=== PATIENT | male | born 1950 | race Caucasian/White ===

== ENCOUNTER 2016-03-23 20:45 | Emergency (ER) | payer MEDICARE, BC ==
--- NOTE | 2016-03-23 21:17 | ER Document Report ---
ED Foreign Body - General Mode of Arrival: Medic Information source: Patient, Relative - Spouse TRAVEL OUTSIDE OF THE [place] IN LAST 30 DAYS: No - HPI Patient complains to provider of: esophagus obstruction Location of foreign body: Throat Onset: Just prior to arrival Onset/Duration: Sudden Associated symptoms: None Similar symptoms previously: Yes - multiple incidents - General Chief Complaint: Swallowed Foreign Body Stated Complaint: POSSIBLE FOREIGN OBJECT IN THROAT Notes: Patient is a 65-year-old male presenting to the emergency department via EMS after choking on report. Patient states that it is still stuck in his throat, and he is unable to swallow his own secretions. Patient immediately regurgitated water when he attempted to swallow. Patient states that he has attempted to make himself vomit, but has not worked. Patient's states that he chokes quite often on meet. Patient states he has had one scope 10-12 years ago where they told him he had a hiatal hernia. Patient has a history of COPD, NH, arthritis, and his primary care physician is Dr. Crum. (JOSELO MCKINLEY) - Related Data Allergies/Adverse Reactions: No Known Allergies Allergy (Unverified 10/11/14 10:41) Past Medical History - General Information source: Patient - Social History Smoking Status: Former Smoker Cigarette use (# per day): No Drug Abuse: None Lives with: Spouse/Significant other Family History: Reviewed & Not Pertinent, Arthritis, DM, Other - Past Medical History Cardiac Medical History: Reports: Hx Congestive Heart Failure - Diastolic, Hx DVT, Hx Hypertension, Hx Pulmonary Embolism Pulmonary Medical History: Reports: Hx COPD, Hx Pneumonia, Hx Sleep Apnea Musculoskeltal Medical History: Reports Hx Arthritis Psychiatric Medical History: Denies: Hx Depression Past Surgical History: Reports: Hx Cholecystectomy, Hx Orthopedic Surgery - carpel tunnel,neck - Immunizations Immunizations up to date: Yes Hx Diphtheria, Pertussis, Tetanus Vaccination: Yes Hx Pneumococcal Vaccination: 02/05/11 Review of Systems - Review of Systems Constitutional: No symptoms reported EENT: See HPI, Other - Food obstructing esophagus. Cardiovascular: No symptoms reported Respiratory: No symptoms reported Gastrointestinal: No symptoms reported Genitourinary: No symptoms reported Male Genitourinary: No symptoms reported Musculoskeletal: No symptoms reported Skin: No symptoms reported Hematologic/Lymphatic: No symptoms reported Neurological/Psychological: No symptoms reported Physical Exam - Vital signs Vitals: Temp Pulse Resp BP Pulse Ox 97.5 F 68 20 121/71 92 03/23/16 21:23 03/23/16 21:23 03/23/16 21:23 03/23/16 21:23 03/23/16 21:23 (COSMO POLK) - Notes Notes: GENERAL: Alert, interacts well. HEAD: Normocephalic, atraumatic. EYES: Pupils equal, round, and reactive to light. Extraocular movements intact. ENT: Food obstruction to esophagus. Patient unable to swallow water- immediately regurgitates. Drooling. NECK: Full range of motion. LUNGS: No respiratory distress. No wheezes rales or rhonchi. HEART: Regular rate and rhythm. No murmurs, gallops, or rubs. ABDOMEN: Soft, non-tender. Non-distended. Bowel sounds present in all 4 quadrants. EXTREMITIES: Moves all 4 extremities spontaneously. NEUROLOGICAL: Alert and oriented x3. Normal speech. PSYCH: Normal affect, normal mood. SKIN: Warm, dry, normal turgor. No rashes or lesions noted. (JOSELO MCKINLEY) Course - Consults [facility] Transfer Line Time consulted: 21:10 - Called transfer line to consult GI specialist. Dr. Ge Time consulted: 21:48 - Re-evaluation Re-evalutation: 03/23/16 23:11 I personally performed the services described in the documentation, reviewed and edited the documentation which was dictated to my scribe in my presence, and it accurately records my words and actions. presents emergency Department chief complaint of pork stuck in his throat. Patient is a 65-year-old male patient who slaughtered a PEG earlier was eating pork. He said at least 20-30 times he's had meat get stuck in his airway but easily is been able to dislodge it at home with various different techniques 90 was unsuccessful at that family members report doing the Heimlich maneuver twice. On ED arrival patient is drooling slightly no acute respiratory distress gave him something to drink it came right back up. I spoke with we do not have GI or ENT here spoke with Dr. Ge [facility] he recommended trying glucagon awaiting a half hour no response with glucagon called him back on he's been accepted [facility] for a scope tonight. Concerns with a history of recurrent obstruction and no scope that there could be a stricture or tumor in the ear. He says he hasn't been scoped in over 10 years. Patient is well- appearing nontoxic no respiratory distress and Teleform is been fine and he is pending transfer [facility] via [facility]. (COSMO POLK) - Vital Signs Vital signs: Temp Pulse Resp BP Pulse Ox 97.5 F 68 20 121/71 92 03/23/16 21:23 03/23/16 21:23 03/23/16 21:23 03/23/16 21:23 03/23/16 21:23 (COSMO POLK) - Consults [facility] Reason for consultation: 03/23/16 21:20 ENT specialist returned call instead of GI. Called The transfer line again to request GI specialist. (JOSELO MCKINLEY) Dr. Ge Reason for consultation: 03/23/16 22:09 patient's case was discussed with Dr. Ge, who agrees to accept patient ED to ED to do scope. (JOSELO MCKINLEY) Discharge - Discharge Clinical Impression: acute esophageal food obstruction Condition: Stable Disposition: [facility] Scribe Documentation - Scribe Written by Scribe:: Joselo Mckinley [id number] acting as scribe for :: Jose
[2016-03-23 21:36] VITALS: BP 121/71
[2016-03-23] MEDS ORDERED: GLUCAGON,HUMAN RECOMB 1 MG INJ SUBCUT ONE (21:48)
== END 2016-03-23 23:52 | disposition short-term general hospital (02) ==
LOC: ER 20:45
DX: K22.2 Esophageal obstruction (principal); J44.9 Chronic obstructive pulmonary disease, unspecified; I25.2 Old myocardial infarction; I10 Essential (primary) hypertension; Z86.711 Personal history of pulmonary embolism; Z86.718 Personal history of other venous thrombosis and embolism; Z87.891 Personal history of nicotine dependence
CPT/HCPCS: 99284; 96372; J1610

== ENCOUNTER 2016-06-23 22:03 | Emergency (ER) | payer MEDICARE, BC ==
[2016-06-23] MEDS ORDERED: ACETAMINOPHEN 325 MG TABLET PO ONE (22:44)
[2016-06-24] MEDS ORDERED: IPRATROPIUM/ALBUTEROL 0.5-2.5 MG/3 ML AMPUL NEB ONE (00:05)
[2016-06-24 00:46] LABS: HEMATOCRIT 25.6 % (37.9-51.0); HGB HCT DIFFERENCE -1.9; MEAN CORPUSCULAR HEMOGLOBIN 22.3 pg (27.0-33.4); MEAN CORPUSCULAR VOLUME 72 fl (80-97); RED BLOOD COUNT 3.55 10^6/uL (4.35-5.55); RED CELL DISTRIBUTION WIDTH 20.2 % (11.5-14.0); WHITE BLOOD COUNT 15.5 10^3/uL (4.0-10.5)
[2016-06-24 00:53] LABS: HEMOGLOBIN 7.9 g/dL (13.5-17.0)
[2016-06-24 01:01] LABS: ANION GAP 14 (5-19); BLOOD UREA NITROGEN 12 mg/dL (7-20); CALCIUM 7.9 mg/dL (8.4-10.2); CARBON DIOXIDE 24 mmol/L (22-30); CHLORIDE 97 mmol/L (98-107); CREATININE RESULT 0.76 mg/dL (0.52-1.25); GLUCOSE 111 mg/dL (75-110); POTASSIUM 3.6 mmol/L (3.6-5.0); SODIUM 135.1 mmol/L (137-145)
[2016-06-24 01:04] LABS: BASOPHILS % (MANUAL) 0 % (0-2); EOSINOPHILS % (MANUAL) 0 % (0-6); LYMPHOCYTES % (MANUAL) 2 % (13-45); TOTAL CELLS COUNTED 100
[2016-06-24 01:09] LABS: ANISOCYTOSIS 2+; HYPOCHROMASIA 2+; MICROCYTOSIS 1+; OVALOCYTES 1+; POIKILOCYTOSIS 1+; POLYCHROMASIA SLIGHT; TARGET CELLS SLIGHT; TEAR DROP CELLS SLIGHT; TOXIC GRANULATION SLIGHT
[2016-06-24] MEDS ORDERED: LEVOFLOXACIN 750 MG TABLET PO ONE (01:48)
[2016-06-24] MEDS ORDERED: GABAPENTIN 300 MG CAPSULE PO ONE (01:54)
--- NOTE | 2016-06-24 02:00 | ER Document Report ---
ED General - General Chief Complaint: Fever Stated Complaint: WEAKNESS Time Seen by Provider: 06/23/16 23:53 Notes: Patient is 65-year-old male who presents with complaint of cough, congestion, sore throat for several days. He developed fever today. He is on methotrexate he takes to the severe arthritis. He says arthritis is also been worsening. He says he especially has pain in his feet which are very sensitive and hurts to walk. He does not have a history of diabetes. Had no abdominal pain. No vomiting. No diarrhea. No other complaints this time. TRAVEL OUTSIDE OF THE [place] IN LAST 30 DAYS: No - Related Data Allergies/Adverse Reactions: No Known Allergies Allergy (Unverified 10/11/14 10:41) Past Medical History - Social History Smoking Status: Former Smoker Chew tobacco use (# tins/day): No Frequency of alcohol use: None Drug Abuse: None Family History: Reviewed & Not Pertinent, Arthritis, DM, Other Patient has suicidal ideation: No Patient has homicidal ideation: No - Past Medical History Cardiac Medical History: Reports: Hx Congestive Heart Failure - Diastolic, Hx DVT, Hx Heart Attack, Hx Hypertension, Hx Pulmonary Embolism Pulmonary Medical History: Reports: Hx COPD, Hx Pneumonia, Hx Sleep Apnea Renal/ Medical History: Denies: Hx Peritoneal Dialysis Musculoskeltal Medical History: Reports Hx Arthritis Psychiatric Medical History: Denies: Hx Depression Past Surgical History: Reports: Hx Cholecystectomy, Hx Orthopedic Surgery - carpel tunnel,neck - Immunizations Immunizations up to date: Yes Hx Diphtheria, Pertussis, Tetanus Vaccination: Yes Hx Pneumococcal Vaccination: 02/05/11 Review of Systems - Review of Systems Notes: My Normal Review Basic REVIEW OF SYSTEMS: CONSTITUTIONAL : Denies fever, chills, or sweats. Denies recent illness. EENT: Nasal congestion and sore throat. RESPIRATORY: Recurrent cough GASTROINTESTINAL: Denies abdominal pain. Denies nausea, vomiting, or diarrhea. Denies constipation. GENITOURINARY: Denies difficulty urinating, painful urination, burning, frequency, or blood in urine. MUSCULOSKELETAL: Joint pain, bilateral foot pain SKIN: Denies rash or skin lesions. NEUROLOGICAL: Denies altered mental status or loss of consciousness. Denies headache. Denies weakness or paralysis or loss of use of either side. Denies problems with gait or speech. Denies sensory or motor loss. ALL OTHER SYSTEMS REVIEWED AND NEGATIVE. Physical Exam - Vital signs Vitals: Temp Pulse Resp BP Pulse Ox 101.9 F H 115 H 16 129/51 H 95 06/23/16 22:42 06/23/16 22:42 06/23/16 22:42 06/23/16 22:42 06/23/16 22:42 - Notes Notes: General Appearance: Well nourished, alert, cooperative, no acute distress, no obvious discomfort. Vitals: reviewed, See vital signs table. Head: no swelling or tenderness to the head Eyes: PERRL, EOMI, Conjuctiva clear Mouth: No decreasd moisture Throat: No tonsillar inflammation, No airway obstruction, No lymphadenopathy Ears: Normal-appearing tympanic membranes. Neck: Supple, no neck tenderness, No thyromegaly Lungs: No wheezing, No rales, No rhonci, No accessory muscle use, good air exchange bilaterally. Heart: Normal rate, Regular rythm, No murmur, no rub Abdomen: Normal BS, soft, No rigidity, No abdominal tenderness, No guarding, no rebound, no abdominal masses, no organomegaly Extremities: strength 5/5 in all extremities, good pulses in all extremities, Bilateral feet are very tender to palpation, no edema. Skin: warm, dry, appropriate color, no rash Neuro: speech clear, oriented x 3, normal affect, responds appropriately to questions. Course - Vital Signs Vital signs: Temp Pulse Resp BP Pulse Ox 99.5 F 96 20 126/57 H 93 06/24/16 02:43 06/24/16 02:43 06/24/16 02:43 06/24/16 02:43 06/24/16 02:43 - Laboratory Result Diagrams: 06/24/16 00:35 06/24/16 00:35 Laboratory results interpreted by me: 06/24/16 06/24/16 00:35 00:35 WBC 15.5 H RBC 3.55 L Hgb 7.9 L Hct 25.6 L MCV 72 L MCH 22.3 L MCHC 31.0 L RDW 20.2 H Seg Neuts % (Manual) 95 H Lymphocytes % (Manual) 2 L Abs Neuts (Manual) 14.7 H Abs Lymphs (Manual) 0.3 L Sodium 135.1 L Chloride 97 L Glucose 111 H Calcium 7.9 L - Transfer of Care Notes: 05/20/17 05:04 Patient laboratory evaluation was unremarkable except for leukocytosis of 15, 000. He is on methotrexate. Fortunately he is not leukopenic. He also has a history of some nosebleeds. His platelets were normal. Patient's symptoms are consistent with a bronchitis or upper respiratory infection being that his cough , congestion, sore throat. His says he has a history of recurrent pneumonias. Being that he is on the methotrexate and has a history of recurrent pneumonias and has fever and recurrent coughing I will cover him with Levaquin. Patient will be discharged home. I strongly encouraged him return to ER immediately if he has recurrent fevers or feels that he is worsening in any way. Also on exam patient's feet are very sensitive to touch. He says he thinks this is arthritis and hurts more to walk. On exam his feet are very sensitive to touch all over almost as if he has a bad neuropathy. He is already on Vicodin 10 mg at home. I will start him on gabapentin to see if this helps control his pain better as on exam it seems more consistent with a neuropathic pain. There is no redness or swelling to his feet. Nothing to suggest infection of his feet. Dictation of this chart was performed using voice recognition software; therefore, there may be some unintended grammatical errors. Discharge - Discharge Clinical Impression: Sorethroat, Cough Fever Qualifiers: Fever type: unspecified Qualified Code(s): R50.9 - Fever, unspecified Joint pain Qualifiers: Joint pain location: foot Laterality: bilateral Qualified Code(s): M79.671 - Pain in right foot Condition: Good Disposition: HOME, SELF-CARE Additional Instructions: Please follow-up with your doctor on Sunday for close reevaluation. Please inform them of the medications we have started. Please return to the ER if you have recurrent fevers not responding to Tylenol, difficulty breathing, or feel that you are worsening in any way. Do not take her methotrexate today. He can restart the methotrexate next Sunday if your illness is gone. Prescriptions: Gabapentin 300 mg PO BID #30 capsule Levofloxacin [Levaquin 750 mg Tablet] 750 mg PO DAILY #7 tablet Referrals: DEVORA VILLASEÑOR MD [Primary Care Provider] - 06/26/16
[2016-06-24 02:44] VITALS: BP 126/57
== END 2016-06-24 02:43 | disposition home or self-care (01) ==
LOC: ER 22:03
DX: J02.9 Acute pharyngitis, unspecified (principal); R50.9 Fever, unspecified; R05 Cough; M79.671 Pain in right foot; I50.9 Heart failure, unspecified; I10 Essential (primary) hypertension; J44.9 Chronic obstructive pulmonary disease, unspecified; I25.2 Old myocardial infarction; Z86.711 Personal history of pulmonary embolism; Z90.49 Acquired absence of other specified parts of digestive tract; Z86.718 Personal history of other venous thrombosis and embolism
CPT/HCPCS: 94640; 99285; 36415; 87070; 87880; 85025; 80048; 87804; 71020; A9270 ×4; J7620

== ENCOUNTER 2016-10-13 21:02 | Emergency (ER) | payer MEDICARE, BC ==
--- NOTE | 2016-10-13 21:54 | RADIOLOGY REPORT (SQ) ---
EXAM DESCRIPTION: HAND RIGHT 3 VIEWS COMPLETED DATE/TIME: 10/13/2016 9:39 pm REASON FOR STUDY: injury COMPARISON: None. EXAM PARAMETERS: NUMBER OF VIEWS: Three views. TECHNIQUE: AP, lateral and oblique radiographic images acquired of the right hand. LIMITATIONS: None. FINDINGS: MINERALIZATION: Osteopenia. BONES: No acute fracture or dislocation. No worrisome bone lesions. JOINTS: No effusions. SOFT TISSUES: No significant soft tissue swelling. No foreign body. OTHER: No other significant finding. IMPRESSION: No acute injury identified. TECHNICAL DOCUMENTATION: JOB ID: [id number] [employer]- All Rights Reserved
[2016-10-13] MEDS ORDERED: LIDOCAINE 1% INJ-PF (10 MG/ML) 30 ML SDV INJ ONE (23:52)
--- NOTE | 2016-10-14 00:13 | ER Document Report ---
ED Wound - General Chief Complaint: Laceration Stated Complaint: RIGHT THUMB LACERATION Time Seen by Provider: 10/13/16 23:36 Notes: Patient is a 65-year-old male, chief complaint of laceration to the right thumb. He states he knicked a table saw with his thumb before it had stopped after it was turned off. He is not on a blood thinner, he denies diabetes. His tetanus is up-to-date. He denies any other injuries. TRAVEL OUTSIDE OF THE [place] IN LAST 30 DAYS: No - Related Data Allergies/Adverse Reactions: No Known Allergies Allergy (Verified 10/13/16 21:25) Past Medical History - General Information source: Patient - Social History Smoking Status: Unknown if Ever Smoked Cigarette use (# per day): No Chew tobacco use (# tins/day): No Frequency of alcohol use: None Drug Abuse: None Lives with: Family Family History: Reviewed & Not Pertinent, Arthritis, DM, Other - Past Medical History Cardiac Medical History: Reports: Hx Congestive Heart Failure - Diastolic, Hx DVT, Hx Heart Attack, Hx Hypertension, Hx Pulmonary Embolism Pulmonary Medical History: Reports: Hx COPD, Hx Pneumonia, Hx Sleep Apnea Renal/ Medical History: Denies: Hx Peritoneal Dialysis Musculoskeltal Medical History: Reports Hx Arthritis Psychiatric Medical History: Denies: Hx Depression Past Surgical History: Reports: Hx Cholecystectomy, Hx Orthopedic Surgery - carpel tunnel,neck - Immunizations Immunizations up to date: Yes Hx Diphtheria, Pertussis, Tetanus Vaccination: Yes Hx Pneumococcal Vaccination: 02/05/11 Review of Systems - Review of Systems Constitutional: No symptoms reported EENT: No symptoms reported Cardiovascular: No symptoms reported Respiratory: No symptoms reported Gastrointestinal: No symptoms reported Genitourinary: No symptoms reported Male Genitourinary: No symptoms reported Musculoskeletal: See HPI Skin: See HPI Hematologic/Lymphatic: No symptoms reported Neurological/Psychological: No symptoms reported Physical Exam - Vital signs Vitals: Temp Pulse Resp BP Pulse Ox 97.6 F 73 20 171/70 H 96 10/13/16 21:25 10/13/16 21:25 10/13/16 21:25 10/13/16 21:25 10/13/16 21:25 Interpretation: Normal - General General appearance: Appears well, Alert - HEENT Head: Normocephalic, Atraumatic Eyes: Normal Pupils: PERRL - Respiratory Respiratory status: No respiratory distress Chest status: Nontender Breath sounds: Normal Chest palpation: Normal - Cardiovascular Rhythm: Regular Heart sounds: Normal auscultation Murmur: No - Abdominal Inspection: Normal Distension: No distension Bowel sounds: Normal Tenderness: Nontender Organomegaly: No organomegaly - Back Back: Normal, Nontender - Extremities General upper extremity: Other - There is a laceration extending around the side of the right thumb just proximal to the DIP, partial-thickness, wound explored, no evidence of tendon laceration, performs full range of motion of the thumb, normal neurovascular examination. Normal hand examination otherwise. General lower extremity: Normal inspection, Nontender, Normal color, Normal ROM , Normal temperature, Normal weight bearing. No: Shanta's sign - Neurological Neuro grossly intact: Yes Cognition: Normal Orientation: AAOx4 Betsy Coma Scale Eye Opening: Spontaneous Betsy Coma Scale Verbal: Oriented Betsy Coma Scale Motor: Obeys Commands Betsy Coma Scale Total: 15 Speech: Normal Motor strength normal: LUE, RUE, LLE, RLE Sensory: Normal - Psychological Associated symptoms: Normal affect, Normal mood - Skin Skin Temperature: Warm Skin Moisture: Dry Skin Color: Normal Course - Re-evaluation Re-evalutation: Wound cleaned, repaired. Discussed wound care and follow-up, discussed return precautions. Patient already was placed on Keflex by his primary care provider. Advised him to continue this (which was given for different reason). Patient states understanding and agreement. - Vital Signs Vital signs: Temp Pulse Resp BP Pulse Ox 98.6 F 76 16 166/72 H 97 10/14/16 01:34 10/14/16 01:34 10/14/16 01:34 10/14/16 01:34 10/14/16 01:34 Procedures - Laceration/Wound Repair Right thumb Wound length (cm): 2 Wound's Depth, Shape: Irregular Laceration pre-procedure: Sterile PPE donned, Sterile drapes applied, Shur- Clens applied - Surgical cleanser Anesthetic type: 1% Lidocaine Volume Anesthetic (mLs): 3 Wound explored: Clean, No foreign body removed Irrigated w/ Saline (mLs): 60 Wound Debrided: Minimal Wound Repaired With: Sutures Suture Size/Type: 5:0, Nylon Number of Sutures: 8 Layer Closure?: No Post-procedure wound care: Sterile dressing applied Post-procedure NV exam normal: Yes Complications: No Discharge - Discharge Clinical Impression: Laceration of right thumb Qualifiers: Encounter type: initial encounter Damage to nail status: without damage Foreign body presence: without foreign body Qualified Code(s): S61.011A - Laceration without foreign body of right thumb without damage to nail, initial encounter Condition: Stable Disposition: HOME, SELF-CARE Additional Instructions: X-ray of your thumb shows no concerning abnormalities. Sutures need to come out in about 7 days. Keep clean, clean with soap and water, dab dry, avoid soaking, apply thin film of antibiotic over the area. Continue Keflex antibiotic. Return the emergency department for any concerning or worsening symptoms including redness, swelling, discolored drainage, fever, or any other concerning symptoms. Forms: Elevated Blood Pressure Referrals: DEVORA VILLASEÑOR MD [Primary Care Provider] - Follow up as needed
[2016-10-14 01:36] VITALS: BP 166/72
== END 2016-10-14 01:34 | disposition home or self-care (01) ==
LOC: ER 21:02
PROC: 0HQFXZZ Repair Right Hand Skin, External Approach (ICD-10-PCS; principal; 2016-10-13)
DX: S61.011A Laceration without foreign body of right thumb without damage to nail, initial encounter (principal); W29.8XXA Contact with other powered hand tools and household machinery, initial encounter; I10 Essential (primary) hypertension; J44.9 Chronic obstructive pulmonary disease, unspecified
CPT/HCPCS: 99283; 73130; 12001; J3490

== ENCOUNTER 2016-12-31 13:33 | Emergency (ER) | payer MEDICARE, BC ==
[2016-12-31] MEDS ORDERED: LIDOCAINE 1% INJ-PF (10 MG/ML) 30 ML SDV INJ ONE (14:24)
--- NOTE | 2016-12-31 14:34 | ER Document Report ---
ED Hand/Wrist Injury - General Chief Complaint: Finger Injury Stated Complaint: FINGER INJURY Time Seen by Provider: 12/31/16 14:17 Mode of Arrival: Ambulatory Information source: Patient, [facility] Records Notes: This 66-year-old male patient reports closing his right fourth fingertip in a car door. He was able to pull it out, suffering a laceration to the fingertip. This occurred shortly prior to arrival. There is some pain and throbbing. He does have sensation by history. TRAVEL OUTSIDE OF THE [place] IN LAST 30 DAYS: No - Related Data Allergies/Adverse Reactions: No Known Allergies Allergy (Verified 12/31/16 13:36) Past Medical History - General Information source: Patient, [facility] Records - Social History Smoking Status: Former Smoker Cigarette use (# per day): No Chew tobacco use (# tins/day): No Smoking Education Provided: No Frequency of alcohol use: None Drug Abuse: None Occupation: Retired Lives with: Spouse/Significant other Family History: Reviewed & Not Pertinent, Arthritis, DM, Other Patient has suicidal ideation: No Patient has homicidal ideation: No - Past Medical History Cardiac Medical History: Reports: Hx Congestive Heart Failure - Diastolic, Hx DVT, Hx Heart Attack, Hx Hypertension, Hx Pulmonary Embolism Pulmonary Medical History: Reports: Hx COPD, Hx Pneumonia, Hx Sleep Apnea EENT Medical History: Reports: None Neurological Medical History: Reports: None Endocrine Medical History: Reports: None Renal/ Medical History: Reports: None GI Medical History: Reports: None Musculoskeltal Medical History: Reports Hx Arthritis Psychiatric Medical History: Reports: None Past Surgical History: Reports: Hx Cholecystectomy, Hx Orthopedic Surgery - carpel tunnel,neck, ORIF right wrist - Immunizations Immunizations up to date: Yes Hx Diphtheria, Pertussis, Tetanus Vaccination: Yes Hx Pneumococcal Vaccination: 02/05/11 Review of Systems - Review of Systems Constitutional: No symptoms reported EENT: No symptoms reported Cardiovascular: No symptoms reported Respiratory: Short of breath - Patient with COPD, chronically short of breath Gastrointestinal: No symptoms reported Musculoskeletal: Back pain, Joint pain Skin: No symptoms reported Hematologic/Lymphatic: No symptoms reported Neurological/Psychological: No symptoms reported Physical Exam - Vital signs Vitals: Temp Pulse Resp BP Pulse Ox 98.2 F 83 20 124/61 92 12/31/16 13:36 12/31/16 13:36 12/31/16 13:36 12/31/16 13:36 12/31/16 13:36 Interpretation: Normal - Patient is breathing a little fast which is baseline for him. - General General appearance: Appears well, Alert In distress: None - HEENT Head: Normocephalic, Atraumatic Eyes: Normal Pupils: PERRL Neck: Normal - Respiratory Respiratory status: Tachypnea - Patient is a little tachypnea, this is his baseline due to his COPD. He reports he does not feel any more short of breath in his usual peer - Cardiovascular Rhythm: Regular - Abdominal Inspection: Normal - Back Back: Normal - Extremities General upper extremity: Other - The right third fingertip has a 4-1/2 cm laceration that starts at the end of the tip just below the nail on the radial side traversing along the volar radial side, then curved across the volar aspect going toward the ulnar side. This does create a 1.5 X 1.5 cm flap to the fingertip pulp. The area is reddened and swollen, it does not appear devascularized. Sensation is intact. General lower extremity: Normal inspection - Neurological Neuro grossly intact: Yes - Psychological Associated symptoms: Normal affect, Normal mood - Skin Skin Temperature: Warm Skin Moisture: Dry Skin Color: Normal Course - Vital Signs Vital signs: Temp Pulse Resp BP Pulse Ox 97.5 F 77 20 129/73 H 91 L 12/31/16 15:59 12/31/16 15:59 12/31/16 15:59 12/31/16 15:59 12/31/16 15:59 - Diagnostic Test Radiology reviewed: Image reviewed - Fractures are seen on the involved right fourth fingertip, Reports reviewed - Deep laceration, no retained foreign body, no fracture Procedures - Laceration/Wound Repair Right Volar Finger 4th digit Time completed: 15:45 Wound length (cm): 4.5 Wound's Depth, Shape: Superficial, Irregular, Flap, Contused tissue Laceration pre-procedure: Sterile drapes applied, Shur-Clens applied Anesthetic type: 1% Lidocaine Volume Anesthetic (mLs): 6 - Metacarpal block Wound explored: Clean, No foreign body removed Irrigated w/ Saline (mLs): 30 Wound Debrided: Minimal Wound Repaired With: Sutures Suture Size/Type: 5:0 Number of Sutures: 12 Layer Closure?: No Post-procedure wound care: Sterile dressing applied Post-procedure NV exam normal: Yes Complications: No Discharge - Discharge Clinical Impression: Cut of finger Condition: Stable Disposition: HOME, SELF-CARE Additional Instructions: Laceration Care Your laceration has been sutured to keep the skin edges aligned during healing. The time of suture removal depends on the nature and location of your cut. Please follow the care instructions the doctor has outlined for you and return for further care, according to the schedule you've been given. Keep the wound and dressing clean. Unless you were told otherwise, you may shower daily, blotting the wound dry with a clean, unused towel. At other times, If the dressing gets wet or blood soaked, remove it and blot the wound dry, then reapply a new dressing. Unless you were instructed otherwise, dressings should be changed at least daily. If any signs of infection occur (swelling, redness, increasing tenderness, red streaks, tender lumps in the armpit or groin above the laceration, or fever) , see the doctor immediately. //////////////////////////////////////////////////////////////////////////////// //////////////////////////////////////////////////////////////////////////////// / You suffered a crushing, avulsing laceration of your fingertip. There was no fracture of the bone. You should keep the dressing clean and dry. Change the dressing tomorrow and put bacitracin ointment and a Band-Aid over the wound. Elevate the hand as much as possible. Take antibiotics as prescribed for the next few days. Take Tylenol and ibuprofen for pain as needed Return in 1 week for suture removal. Return sooner if any signs of infection. RETURN TO THE EMERGENCY ROOM IF ANY NEW OR WORSENING SYMPTOMS. Prescriptions: Cephalexin [Cephalexin 500 MG Tablet] 500 mg PO QID #15 tablet Referrals: DEVORA VILLASEÑOR MD [Primary Care Provider] - Follow up as needed
--- NOTE | 2016-12-31 14:49 | RADIOLOGY REPORT (SQ) ---
EXAM DESCRIPTION: FINGER RIGHT COMPLETED DATE/TIME: 12/31/2016 2:18 pm REASON FOR STUDY: right 4th finger injury COMPARISON: Right hand films 10/13/2016 NUMBER OF VIEWS: Three views. TECHNIQUE: AP, lateral, and oblique images acquired of the right 4th finger LIMITATIONS: None. FINDINGS: MINERALIZATION: Normal. BONES: No acute fracture or dislocation. No worrisome bone lesions. SOFT TISSUES: Deep laceration, palmar aspect right 4th finger tip without retained radiopaque foreign body or underlying fracture. OTHER: Fusion across the wrist, with a fixation plate from the distal radius through the mid diaphysi s 3rd metacarpal IMPRESSION: Deep laceration, palmar aspect right 4th finger tip without retained radiopaque foreign body or underlying fracture COMMENT: SITE OF TRAUMA/COMPLAINT MARKED/STAMP COMPLETED: Yes TECHNICAL DOCUMENTATION: JOB ID: [id number] [email or web address]- All Rights Reserved
[2016-12-31] MEDS ORDERED: HYDROCODONE/ACETAMINOPHEN 5-325 MG 6 TAB/DSPK PO PRN (15:46)
[2016-12-31] MEDS ORDERED: CEPHALEXIN 500 MG CAPSULE PO ONE (15:46)
[2016-12-31 16:11] VITALS: BP 129/73
== END 2016-12-31 16:11 | disposition home or self-care (01) ==
LOC: ER 13:33
PROC: 0HQFXZZ Repair Right Hand Skin, External Approach (ICD-10-PCS; principal; 2016-12-31)
DX: S61.214A Laceration without foreign body of right ring finger without damage to nail, initial encounter (principal); W23.1XXA Caught, crushed, jammed, or pinched between stationary objects, initial encounter; I50.9 Heart failure, unspecified; I10 Essential (primary) hypertension; Z86.718 Personal history of other venous thrombosis and embolism; I25.2 Old myocardial infarction; Z86.711 Personal history of pulmonary embolism; Z90.49 Acquired absence of other specified parts of digestive tract
CPT/HCPCS: 99283; 73140; 12002; A9270 ×2; J3490

== ENCOUNTER 2017-05-04 20:54 | Observation (INO) | payer MEDICARE, BC ==
[2017-05-04] MEDS ORDERED: IPRATROPIUM/ALBUTEROL 0.5-2.5 MG/3 ML AMPUL NEB ONE (21:38)
--- NOTE | 2017-05-04 21:46 | ER Document Report ---
ED General - General Mode of Arrival: Ambulatory Information source: Patient, Relative TRAVEL OUTSIDE OF THE [place] IN LAST 30 DAYS: No - HPI Onset: Other - 1 month ago Onset/Duration: Gradual, Worse Quality of pain: Achy, Burning Severity: Moderate Pain Level: 2 Associated symptoms: Chest pain - With coughing., Productive cough, Rhinnorhea. denies: Fever, Sore throat Exacerbated by: Sitting, Walking Relieved by: Supine Similar symptoms previously: Yes Recently seen / treated by doctor: Yes <LANDRY RIVAS - Last Filed: 05/05/17 02:38> <RALPH MIN - Last Filed: 05/05/17 06:15> - General Chief Complaint: Breathing Difficulty Stated Complaint: GROIN PAIN, COUGH Time Seen by Provider: 05/04/17 21:18 Notes: 66-year-old male with a history of COPD, CAD, DVT presents with complaint of right groin pain and right leg swelling he reports worsening SB, chest pain described as intermittent, pressure-like and worse with deep breathing. Patient states that groin pain started approximately 1 month prior to arrival with worsening of pain over the last few days. He also states that he has noticed swelling of the right leg for several weeks with increased swelling of the last few days. He did undergo an ultrasound of the right lower extremity last week but is unsure the results. 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 This was secondary to being sedentary and bedridden for several months. He is not currently on any blood thinning medications. Patient also complaining of an associated productive cough that has been ongoing for 2 months. Patient is on a "trilogy machine" secondary to CO2 retention. (LANDRY RIVAS) - Related Data Allergies/Adverse Reactions: No Known Allergies Allergy (Verified 12/31/16 13:36) Past Medical History - General Information source: Patient, Relative - Social History Smoking Status: Former Smoker Cigarette use (# per day): No Chew tobacco use (# tins/day): No Smoking Education Provided: Yes Frequency of alcohol use: None Drug Abuse: None Lives with: Spouse/Significant other Family History: Reviewed & Not Pertinent, Arthritis, DM, Other - Past Medical History Cardiac Medical History: Reports: Hx Congestive Heart Failure - Diastolic, Hx DVT, Hx Heart Attack, Hx Hypertension, Hx Pulmonary Embolism Pulmonary Medical History: Reports: Hx COPD, Hx Pneumonia, Hx Sleep Apnea Renal/ Medical History: Denies: Hx Peritoneal Dialysis Musculoskeltal Medical History: Reports Hx Arthritis Psychiatric Medical History: Denies: Hx Depression Past Surgical History: Reports: Hx Cholecystectomy, Hx Orthopedic Surgery - carpel tunnel,neck, ORIF right wrist - Immunizations Immunizations up to date: Yes Hx Diphtheria, Pertussis, Tetanus Vaccination: Yes Hx Pneumococcal Vaccination: 02/05/11 <LANDRY RIVAS - Last Filed: 05/05/17 02:38> Review of Systems - Review of Systems Constitutional: Malaise. denies: Chills, Diaphoresis, Fever EENT: Nose congestion Cardiovascular: Chest pain Respiratory: Cough, Short of breath Gastrointestinal: No symptoms reported Genitourinary: Other - right groin pain. denies: Dysuria, Hematuria Musculoskeletal: Leg swelling Skin: Lesions - Squamous cell carcinoma Neurological/Psychological: denies: Confusion <LANDRY RIVAS E - Last Filed: 05/05/17 02:38> Physical Exam - Vital signs Interpretation: Normal. No: Hypertensive, Tachycardic, Hypoxic, Febrile - General General appearance: Appears well, Alert In distress: None - HEENT Head: Normocephalic, Atraumatic Eyes: Normal Pupils: PERRL Sinus: Normal Nasal: Normal Mucous membranes: Normal Pharynx: Normal Neck: Normal - Respiratory Respiratory status: No respiratory distress. No: Cyanosis, Retractions Chest status: Nontender, Pain with cough Breath sounds: Normal, Wheezing Chest palpation: Normal - Cardiovascular Rhythm: Regular Heart sounds: Normal auscultation Murmur: No Pulses: Normal: Radial, Posterior tibial, Dorsalis pedis - Abdominal Inspection: Normal Distension: No distension Bowel sounds: Normal Tenderness: Nontender Organomegaly: No organomegaly - Back Back: Normal, Nontender - Extremities General upper extremity: Normal inspection - right>left, Nontender, Normal color , Normal ROM, Normal temperature General lower extremity: Normal inspection, Nontender, Tender, Edema, Normal color, Normal ROM, Normal temperature, Normal weight bearing. No: Shanta's sign Calf: Tender - Right lower extremity with edema, tenderness. No erythema. DP pulse intact. 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, Plantar flexion Sensory: Normal - Psychological Associated symptoms: Normal affect, Normal mood - Skin Skin Temperature: Warm Skin Moisture: Dry Skin Color: Normal Skin irregularity: Lesion - forehead-black Location of irregularity: Face, Neck <LANDRY RIVAS - Last Filed: 05/05/17 02:38> - Vital signs Vitals: Temp Pulse Resp BP Pulse Ox 98.3 F 85 18 117/75 95 05/04/17 21:05 05/04/17 21:05 05/04/17 21:05 05/04/17 21:05 05/04/17 21:05 Course - Laboratory Result Diagrams: 05/04/17 22:45 05/04/17 22:45 - Diagnostic Test Radiology reviewed: Pending - EKG Interpretation by Al EKG shows normal: Sinus rhythm Rate: Normal Rhythm: Other - Diffuse T-wave inversions. No ST elevation. This is a change from previous EKG done on February 14, 2015. <LANDRY RVIAS - Last Filed: 05/05/17 02:38> - Laboratory Result Diagrams: 05/04/17 22:45 05/04/17 22:45 <RALPH MIN - Last Filed: 05/05/17 06:15> - Re-evaluation Re-evalutation: 05/05/17 00:31 Bedside ultrasound of the right lower extremity using continuous compression from the common femoral vein to the popliteal vein was performed and showed no evidence of DVT. Bedside ultrasound of the heart was also obtained and showed no evidence of pericardial effusion. Lungs were scanned and showed multiple a lines without B-lines indicative of no fluid overload or pleural effusion. Patient's EKG today shows diffuse T-wave inversions which is a significant change from previous EKG 02/14/2015. Patient requesting transfer to [facility]. 05/05/17 00:35 66-year-old man with a history of end-stage COPD, coronary artery disease, diabetes, CHF, VT with IVC filter presents with complaints of cough, chest pain , right groin and right lower extremity pain. 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 Vital signs reviewed and within normal limits. Patient does not appear toxic or dehydrated. He is no respiratory distress. Exam is significant for right lower extremity swelling and tenderness. No skin color changes. Lung exam is significant for diffuse wheezing and a constant productive cough. Patient is on a trilogy machine for CO2 retention. Undergoes repeated ABGs for advanced COPD. Significant laboratory findings include an elevated d-dimer, elevated CKMB. Bedside ultrasound of the right lower extremity using continuous compression from the common femoral vein to the popliteal vein was performed and showed no evidence of DVT. Bedside ultrasound of the heart was also obtained and showed no evidence of pericardial effusion. Lungs were scanned and showed multiple a lines without B-lines indicative of no fluid overload or pleural effusion. Ultrasound-guided vascular access obtained with 20-gauge in the right AC. 05/05/17 01:[address] Crespo with interventional cardiology at [facility] who is requesting CTA of the chest with repeat troponin at 300. He has provided his personal mobile phone number of [phone]. (LANDRY RIVAS) 05/05/17 01:49 Patient was checked out to me by Dr. Rivas. Patient is undergoing a CT PE study to rule out PE. Patient's IV in the right arm blue during the study. I therefore went in place a IV in the left antecubital. Good dark blood withdrawal and easy flush without difficulty. This was placed under ultrasound guidance. I reordered the CTA and will try to complete the study with a new IV. 05/05/17 04:20 EKG #2 is reviewed and interpreted by me. EKG shows sinus rhythm with a rate of [address] segment elevation or depression. Patient does have T-wave inversions which are unchanged comparison to his EKG performed earlier this ER visit. IN interval, QRS duration, QTc intervals are within normal range. 05/05/17 04:31 Evaluation the patient's breathing appears worse, his lung auscultation is very poor with a lot of wheezing and rhonchorous breath sounds. His is now bedside and able to give me further history. She says that his breathing has been worsening over last 1-2 weeks but the last couple days has become much worse. He is on prednisone 5 mg twice a day. He said he did increase this to 20 over the last 2 days because his breathing was getting worse. The patient's main concern himself is of course his right leg and the swelling is had. Bedside ultrasound performed but Dr. Rivas did not show DVT however the patient should have an official DVT study being days a history of recurrent DVTs and used to be on blood thinning medications because of that. Biggest concern at this time is his respiratory status and bronchitis. I will torn a venous blood gas. I have ordered multiple breathing treatments as well as Solu- Medrol and magnesium. 05/05/17 06:13 Patient received breathing treatments, Solu-Medrol, magnesium. His lung auscultation is still very poor. Patient's tachypnea has improved some however patient still feels more short of breath in comparison to his baseline. Oxygen saturation is about 90-91% on room air. His venous blood gas surprisingly is okay. I talked to patient length. Patient says that he does feel more short of breath is baseline. 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 Being that he still has very poor lung auscultation and feels unwell I feel that he is appropriate for admission. Patient agreeable to this. Patient has right leg swelling as well. He does want an official DVT study. I have ordered this study. This can be followed up by the admitting physician. I did speak with Dr. Salinas who agrees to admit the patient. To follow-up with Dr. Guardado and informed him that both the patient's troponins were negative. Patient does not require transfer to [facility] as we can take care of the patient here. (RALPH MIN) - Vital Signs Vital signs: Temp Pulse Resp BP Pulse Ox 98.7 F 85 16 117/75 95 05/05/17 04:42 05/05/17 00:07 05/05/17 01:00 05/05/17 00:07 05/05/17 02:00 - Laboratory Laboratory results interpreted by me: 05/04/17 05/04/17 05/04/17 22:45 22:45 22:45 RBC 4.23 L Hgb 12.0 L Hct 36.9 L RDW 19.4 H Lymphocytes % 12.9 L D-Dimer Sodium 146.4 H Glucose 127 H Creatine Kinase 506 H CK-MB (CK-2) 13.70 H Urine Urobilinogen Urine Ascorbic Acid 05/04/17 05/05/17 22:45 00:10 RBC Hgb Hct RDW Lymphocytes % D-Dimer 1.94 H Sodium Glucose Creatine Kinase CK-MB (CK-2) Urine Urobilinogen 8.0 H Urine Ascorbic Acid 40 H Procedures - Ultrasound/Bedside Ultrasound/Bedside Ultrasound: Other - Cardiac ultrasound showed no pericardial effusion. Poor contractility. Ultrasound of the right lower extremity to assess for DVT was obtained and showed no evidence of DVT. ultrasound-guided vascular access obtained. <LANDRY RIVAS - Last Filed: 05/05/17 02:38> Discharge <LANDRY RIVAS - Last Filed: 05/05/17 02:38> - Discharge Admitting Provider: Hospitalist Unit Admitted: Telemetry <RALPH MIN - Last Filed: 05/05/17 06:15> - Discharge Clinical Impression: Bronchitis, Right leg swelling Condition: Stable Disposition: ADMITTED OBSERVATION Referrals: DEVORA VILLASEÑOR MD [Primary Care Provider] - Follow up as needed
--- NOTE | 2017-05-04 22:28 | RADIOLOGY REPORT (SQ) ---
EXAM DESCRIPTION: CHEST SINGLE VIEW COMPLETED DATE/TIME: 05/04/2017 10:13 pm REASON FOR STUDY: difficulty breathing COMPARISON: 06/24/2016 EXAM PARAMETERS: NUMBER OF VIEWS: One view. TECHNIQUE: Single frontal radiographic view of the chest acquired. RADIATION DOSE: NA LIMITATIONS: None. FINDINGS: LUNGS AND PLEURA: No opacities, masses or pneumothorax. No pleural effusion. MEDIASTINUM AND HILAR STRUCTURES: No masses. Contour normal. HEART AND VASCULAR STRUCTURES: Heart stable in size. Normal vasculature. BONES: No acute findings. HARDWARE: None in the chest. OTHER: No other significant finding. IMPRESSION: NO ACUTE RADIOGRAPHIC FINDING IN THE CHEST. NO SIGNIFICANT CHANGE FROM PRIOR STUDY. TECHNICAL DOCUMENTATION: JOB ID: [id number] [employer]- All Rights Reserved Reading location - IP/workstation name: [email or web address]
[2017-05-04 23:20] LABS: ABSOLUTE LYMPHOCYTES (AUTO) 1.3 10^3/uL (0.5-4.7); ABSOLUTE MONOCYTES (AUTO) 0.9 10^3/uL (0.1-1.4); ABSOLUTE NEUT (AUTO) 7.6 10^3/uL (1.7-8.2); BASOPHILS % (AUTO) 0.4 % (0-2); EOSINOPHILS % (AUTO) 0.5 % (0-6); HEMATOCRIT 36.9 % (37.9-51.0); LYMPHOCYTES % (AUTO) 12.9 % (13-45); MEAN CORPUSCULAR HEMOGLOBIN 28.4 pg (27.0-33.4); MEAN CORPUSCULAR HGB CONC 32.5 g/dL (32.0-36.0); MEAN CORPUSCULAR VOLUME 87 fl (80-97); MONOCYTES % (AUTO) 9.1 % (3-13); PLATELET COUNT 285 10^3/uL (150-450); RED BLOOD COUNT 4.23 10^6/uL (4.35-5.55); RED CELL DISTRIBUTION WIDTH 19.4 % (11.5-14.0); SEGMENTED NEUTROPHILS % (AUTO) 77.1 % (42-78); TOTAL CELLS COUNTED % (AUTO) 100 %; WHITE BLOOD COUNT 9.8 10^3/uL (4.0-10.5)
[2017-05-04 23:28] LABS: ALANINE AMINOTRANSFERASE 51 U/L (21-72); ALBUMIN 3.9 g/dL (3.5-5.0); ALKALINE PHOSPHATASE 87 U/L (38-126); ANION GAP 10 (5-19); ASPARTATE AMINO TRANSFERASE 53 U/L (17-59); BILIRUBIN,DIRECT 0.2 mg/dL (0.0-0.4); BILIRUBIN,TOTAL 0.3 mg/dL (0.2-1.3); BLOOD UREA NITROGEN 19 mg/dL (7-20); CALCIUM 8.6 mg/dL (8.4-10.2); CARBON DIOXIDE 30 mmol/L (22-30); CHLORIDE 106 mmol/L (98-107); CREATINE KINASE 506 U/L (55-170); GLUCOSE 127 mg/dL (75-110); POTASSIUM 3.9 mmol/L (3.6-5.0); SODIUM 146.4 mmol/L (137-145); TOTAL PROTEIN 6.8 g/dL (6.3-8.2)
[2017-05-04 23:41] LABS: NT PRO BNP 527 pg/mL (5-900); TROPONIN I < 0.012 ng/mL
[2017-05-05 00:26] LABS: APPEARANCE,URINE CLEAR; COLOR,URINE YELLOW; GLUCOSE, URINE NEGATIVE (NEGATIVE)
[2017-05-05 00:27] LABS: BILIRUBIN,URINE NEGATIVE (NEGATIVE); KETONES,URINE NEGATIVE (NEGATIVE); PROTEIN,URINE NEGATIVE (NEGATIVE); URINE SPECIFIC GRAVITY 1.022
[2017-05-05 00:28] LABS: LEUKOCYTE ESTERASE,URINE NEGATIVE (NEGATIVE); NITRITE,URINE NEGATIVE (NEGATIVE)
[2017-05-05] MEDS ORDERED: ASPIRIN 325 MG TABLET PO ONE (01:12)
[2017-05-05] MEDS: ENOXAPARIN SODIUM INJ 80 MG/0.8 ML DISP.SYRIN SUBCUT SCH ×2 (02:00→22:54)
--- NOTE | 2017-05-05 02:59 | RADIOLOGY REPORT (SQ) ---
EXAM DESCRIPTION: CTA CHEST (accession [id number]), CTA ABDOMEN/PELVIS W WO (accession [id number]) CLINICAL HISTORY: 66 years Male, D-dimer history of DVTelevated dimer h/o dvt COMPARISON: CT chest, 02/14/2015, report only. TECHNIQUE: 100 mL Isovue-370 contrast. Coronal and sagittal reformat. This exam was performed according to our departmental dose-optimization program, which includes automated exposure control, adjustment of the mA and/or kV according to patient size and/or use of iterative reconstruction technique. FINDINGS: No pulmonary embolus and no right ventricular strain. Moderate T5 and T8 anterior vertebral compression deformities. Minimal streakiness of the right lower lung field. Mild left lower lobe bronchiectasis. Moderate coronary artery calcification. Fat replacement of the pancreatic head. Atherosclerosis. Minimal left inguinal fat only hernia. IVC filter. Moderate L5-S1 vacuum disc bulge with moderate bilateral L5 foraminal stenoses. 0.3 cm degenerative L1 retrolisthesis. Inferior neck, axillae, mediastinum, lungs, airway, heart, liver, gallbladder, spleen, adrenals, renal system, gastrointestinal tract, pelvic organs, lymphatics, vasculature, and musculoskeleton appear otherwise unremarkable. Impression: 1. Minimal right lower lobar pneumonia or atelectasis/scar. 2. No pulmonary embolus. 3. Moderate T5 and T8 anterior vertebral compression deformities.
--- NOTE | 2017-05-05 02:59 | RADIOLOGY REPORT (SQ) ---
EXAM DESCRIPTION: CTA CHEST (accession [id number]), CTA ABDOMEN/PELVIS W WO (accession [id number]) CLINICAL HISTORY: 66 years Male, D-dimer history of DVTelevated dimer h/o dvt COMPARISON: CT chest, 02/14/2015, report only. TECHNIQUE: 100 mL Isovue-370 contrast. Coronal and sagittal reformat. This exam was performed according to our departmental dose-optimization program, which includes automated exposure control, adjustment of the mA and/or kV according to patient size and/or use of iterative reconstruction technique. FINDINGS: No pulmonary embolus and no right ventricular strain. Moderate T5 and T8 anterior vertebral compression deformities. Minimal streakiness of the right lower lung field. Mild left lower lobe bronchiectasis. Moderate coronary artery calcification. Fat replacement of the pancreatic head. Atherosclerosis. Minimal left inguinal fat only hernia. IVC filter. Moderate L5-S1 vacuum disc bulge with moderate bilateral L5 foraminal stenoses. 0.3 cm degenerative L1 retrolisthesis. Inferior neck, axillae, mediastinum, lungs, airway, heart, liver, gallbladder, spleen, adrenals, renal system, gastrointestinal tract, pelvic organs, lymphatics, vasculature, and musculoskeleton appear otherwise unremarkable. Impression: 1. Minimal right lower lobar pneumonia or atelectasis/scar. 2. No pulmonary embolus. 3. Moderate T5 and T8 anterior vertebral compression deformities.
[2017-05-05] MEDS ORDERED: IPRATROPIUM/ALBUTEROL 0.5-2.5 MG/3 ML AMPUL NEB ONE (04:28)
[2017-05-05] MEDS ORDERED: METHYLPREDNISOLONE INJ 125 MG/2 ML SDV IV ONE (04:29)
[2017-05-05] MEDS: MAGNESIUM SULFATE/D5W 1 GM/100 ML RTUPB IV SCH ×2 (04:40→04:42)
[2017-05-05] MEDS ORDERED: OXYCODONE-ACETAMINOPHEN 5-325 MG TABLET PO ONE (05:38)
[2017-05-05 05:51] LABS: VENOUS BLOOD BASE EXCESS -1.1 mmol/L; VENOUS BLOOD PCO2 54.6 mmHg (35-63); VENOUS BLOOD PH 7.3 (7.30-7.42)
[2017-05-05] MEDS ORDERED: ALBUTEROL SULFATE 0.083% NEB 2.5 MG/3 ML AMPUL NEB ONE (05:52)
[2017-05-05] MEDS ORDERED: ACETAMINOPHEN 325 MG TABLET PO PRN (06:41)
[2017-05-05] MEDS ORDERED: LACTULOSE SYRUP 20 GM/30 ML UDCUP PO ONE (06:41)
[2017-05-05] MEDS ORDERED: HYDRALAZINE HCL INJ/PF 20 MG/1 ML SDV IV PRN (06:41)
[2017-05-05] MEDS ORDERED: IPRATROPIUM/ALBUTEROL 0.5-2.5 MG/3 ML AMPUL NEB PRN (06:41)
[2017-05-05] MEDS ORDERED: GUAIFENESIN SYRP 200 MG/10 ML UDC PO PRN (06:41)
--- NOTE | 2017-05-05 06:54 | PDOC H&P ---
History of Present Illness Admission Date/PCP: 05/05/17 06:27 DEVORA VILLASEÑOR MD Patient complains of: Shortness of breath History of Present Illness: SERGIO YAÑEZ is a 66 year old male with a past medical history of rheumatoid arthritis, opiate dependent chronic pain, congestive heart failure with an ejection fraction of 35%, obstructive sleep apnea with use of trilogy device, coronary artery disease status post [place] and stent placement, deep vein thrombosis status post IVC filter, chronic bronchitis, COPD with current occupational paint exposure and seasonal allergies. Patient presents after worsening shortness of breath over the past 2 weeks acutely worse the past 48 hours. He has rhinorrhea sore throat no postnasal drip. Denies recent change in medications, chest pain nausea vomiting. In the emergency room he is received several albuterol and Atrovent treatments which had initial short-term improvement only he is referred to the hospitalist for admission. Past Medical History Cardiac Medical History: Reports: Congestive Heart Failure - Diastolic, DVT, Myocardial Infarction, Hypertension, Pulmonary Embolism Pulmonary Medical History: Reports: Bronchitis, Chronic Obstructive Pulmonary Disease (COPD), Pneumonia, Sleep Apnea Musculoskeltal Medical History: Reports: Arthritis Psychiatric Medical History: Denies: Depression Past Surgical History Past Surgical History: Reports: Cholecystectomy, Orthopedic Surgery - carpel tunnel,neck, ORIF right wrist Social History Information Source: Patient Lives with: Spouse/Significant other Smoking Status: Former Smoker Frequency of Alcohol Use: Occasional Hx Recreational Drug Use: No Drugs: None Hx Prescription Drug Abuse: No - Advance Directive Resuscitation Status: Full Code Family History Family History: Reviewed & Not Pertinent, Arthritis, DM, Other Parental Family History Reviewed: Yes Children Family History Reviewed: Yes Sibling(s) Family History Reviewed.: Yes Medication/Allergy Home Medications: Folic Acid 1 mg PO DAILY 10/11/14 Gabapentin [Neurontin 300 mg Capsule] 600 mg PO Q12 #120 capsule 10/15/14 Methotrexate Sodium [Methotrexate] 9 tab PO ASDIR PRN 11/14/14 Simvastatin 40 mg PO DAILY 11/14/14 Albuterol Sulfate [Proair HFA] 1 - 2 puff IH Q4 PRN 02/14/15 Aspirin 81 mg PO DAILY 02/14/15 B2/Vits A,C,E/Lut/Zeaxanth/Min [Icaps Tablet] 1 each PO BID 02/14/15 Furosemide [Lasix 40 mg Tablet] 40 mg PO QAM 02/14/15 Prednisone 5 mg PO TID 02/15/15 Oxycodone HCl 5 mg PO Q6HP PRN #12 tablet 01/15/16 Allergies/Adverse Reactions: No Known Allergies Allergy (Verified 12/31/16 13:36) Review of Systems Constitutional: PRESENT: as per HPI, fatigue, weakness. ABSENT: fever(s), night sweats Eyes: ABSENT: visual disturbances Ears: ABSENT: hearing changes Nose, Mouth, and Throat: PRESENT: as per HPI, other - Rhinorrhea Cardiovascular: PRESENT: edema. ABSENT: chest pain, dyspnea on exertion, orthropnea, palpitations Respiratory: PRESENT: as per HPI, cough, dyspnea, sputum. ABSENT: hemoptysis Gastrointestinal: ABSENT: abdominal pain, constipation, diarrhea, hematemesis, hematochezia, nausea, vomiting Genitourinary: ABSENT: dysuria, hematuria Musculoskeletal: ABSENT: joint swelling Integumentary: ABSENT: rash, wounds Neurological: ABSENT: abnormal gait, abnormal speech, confusion, dizziness, focal weakness, syncope Psychiatric: ABSENT: anxiety, depression, homidical ideation, suicidal ideation Endocrine: ABSENT: cold intolerance, heat intolerance, polydipsia, polyuria Hematologic/Lymphatic: ABSENT: easy bleeding, easy bruising Physical Exam Vital Signs: Temp Pulse Resp BP Pulse Ox 98.7 F 85 16 117/75 95 05/05/17 04:42 05/05/17 00:07 05/05/17 01:00 05/05/17 00:07 05/05/17 02:00 General appearance: PRESENT: cooperative, severe distress. ABSENT: no acute distress, obese Head exam: PRESENT: atraumatic, normocephalic Eye exam: PRESENT: conjunctiva pink, EOMI, PERRLA. ABSENT: scleral icterus Ear exam: PRESENT: normal external ear exam Mouth exam: PRESENT: moist, tongue midline Neck exam: ABSENT: carotid bruit, JVD, lymphadenopathy, thyromegaly Respiratory exam: PRESENT: accessory muscle use, clear to auscultation maday, crackles, prolonged expiratory phas, rales, retraction, symmetrical, wheezes. ABSENT: rhonchi, stridor Cardiovascular exam: PRESENT: RRR. ABSENT: diastolic murmur, rubs, systolic murmur Pulses: PRESENT: normal dorsalis pedis pul Vascular exam: PRESENT: normal capillary refill GI/Abdominal exam: PRESENT: normal bowel sounds, soft. ABSENT: distended, guarding, mass, organolmegaly, rebound, tenderness Rectal exam: PRESENT: deferred Extremities exam: PRESENT: +1 edema - Chronic right leg edema following DVT Neurological exam: PRESENT: alert, awake, oriented to person, oriented to place , oriented to time, oriented to situation, CN II-XII grossly intact. ABSENT: motor sensory deficit Psychiatric exam: PRESENT: appropriate affect, normal mood. ABSENT: homicidal ideation, suicidal ideation Skin exam: PRESENT: dry, intact, warm. ABSENT: cyanosis, rash Results Impressions: Chest X-Ray 05/04/17 21:16 IMPRESSION: NO ACUTE RADIOGRAPHIC FINDING IN THE CHEST. NO SIGNIFICANT CHANGE FROM PRIOR STUDY. Assessment & Plan - Diagnosis (1) Bronchitis Is this a current diagnosis for this admission?: Yes Plan: Acute on chronic bronchitis exacerbated by seasonal allergies. Chlorpheniramine , Flonase, empiric antibiotics. Prednisone, incentive spirometry, flutter valve albuterol and Atrovent (2) Right leg swelling Is this a current diagnosis for this admission?: Yes Plan: Chronic secondary to remote DVT and IVC filter placement (3) Acute and chronic respiratory failure with hypercapnia Is this a current diagnosis for this admission?: Yes Plan: Please see #1 trend bicarbonate, BiPAP and supplemental oxygen. Limit narcotics and sedatives (4) Constipation Is this a current diagnosis for this admission?: Yes Plan: Trial lactulose (5) Diastolic dysfunction with chronic heart failure Is this a current diagnosis for this admission?: Yes Plan: Avoiding controlled hypertension tachycardia. Optimize antihypertensive medication regiment. - Time Time Spent: 50 to 70 Minutes - Inpatient Certification Medical Necessity: Need Close Monitoring Due to Risk of Patient Decompensation
[2017-05-05] MEDS ORDERED: FLUTICASONE NASAL SPRAY 50 MCG/SPRY 120 SPRAY/16 GM NASL ONE (07:00)
[2017-05-05] MEDS ORDERED: LEVOFLOXACIN 750 MG/D5W RTU 750 MG/150 ML RTUPB IV ONE (07:00)
[2017-05-05] MEDS: IPRATROPIUM/ALBUTEROL 0.5-2.5 MG/3 ML AMPUL NEB SCH ×3 (08:17→20:09)
[2017-05-05] MEDS: CHLORPHENIRAMINE MALEATE 4 MG TABLET PO SCH ×3 (08:33→17:10)
--- NOTE | 2017-05-05 09:11 | PDOC PROGRESS REPORT ---
Subjective Progress Note for:: 05/05/17 Subjective:: The patient is sitting up on the side of the bed eating his breakfast. He states that he is feeling much better after receiving some steroids last night. He denies fever chills. He has had no chest pain or heart palpitations. He states he still is short of breath and is not quite back to his baseline. He has had no nausea vomiting or diarrhea. No urinary complaints. Reason For Visit: COPD EXACERBATION,ACUTE ON CHRONIC BRONCHITIS Physical Exam Vital Signs: Temp Pulse Resp BP Pulse Ox 98.7 F 85 16 117/75 95 05/05/17 04:42 05/05/17 00:07 05/05/17 01:00 05/05/17 00:07 05/05/17 02:00 General appearance: PRESENT: no acute distress, obese, well-developed, well- nourished Head exam: PRESENT: atraumatic, normocephalic Mouth exam: PRESENT: moist, tongue midline Respiratory exam: PRESENT: other - Coarse breath sounds with end expiratory wheezing noted throughout all lung steinberg Cardiovascular exam: PRESENT: RRR. ABSENT: diastolic murmur, rubs, systolic murmur Pulses: PRESENT: normal dorsalis pedis pul GI/Abdominal exam: PRESENT: normal bowel sounds, soft. ABSENT: distended, guarding, mass, organolmegaly, rebound, tenderness Rectal exam: PRESENT: deferred Extremities exam: PRESENT: other - The patient complains of tenderness in both of his lower extremities along with some swelling. Musculoskeletal exam: PRESENT: ambulatory Neurological exam: PRESENT: alert, awake, oriented to person, oriented to place , oriented to time, oriented to situation, CN II-XII grossly intact. ABSENT: motor sensory deficit Psychiatric exam: PRESENT: appropriate affect, normal mood. ABSENT: homicidal ideation, suicidal ideation Skin exam: PRESENT: dry, intact, warm. ABSENT: cyanosis, rash Results Impressions: Chest X-Ray 05/04/17 21:16 IMPRESSION: NO ACUTE RADIOGRAPHIC FINDING IN THE CHEST. NO SIGNIFICANT CHANGE FROM PRIOR STUDY. Assessment & Plan - Diagnosis (1) Acute and chronic respiratory failure with hypercapnia Is this a current diagnosis for this admission?: Yes Plan: The patient is already back to his baseline oxygen requirement. His respiratory failure is due to a COPD exacerbation and probable early pneumonia. Continue aggressive breathing treatments and therapy as outlined below. (2) Pneumonia Qualifiers: Laterality: right Lung location: lower lobe of lung Is this a current diagnosis for this admission?: Yes Plan: CT scan of the chest was concerning for a possible early pneumonia. Concerns for community-acquired pathogen such as gram positives and atypicals. The patient will continue IV Levaquin. This is the first full day of treatment. (3) COPD exacerbation Is this a current diagnosis for this admission?: Yes Plan: Continue aggressive breathing treatments. He is on 40 mg of IV Solu-Medrol every 8 hours. (4) Diastolic congestive heart failure Qualifiers: Heart failure chronicity: chronic Qualified Code(s): I50.32 - Chronic diastolic (congestive) heart failure Is this a current diagnosis for this admission?: Yes Plan: At this point the patient does not appearTo be decompensated. (5) Obstructive sleep apnea Is this a current diagnosis for this admission?: Yes Plan: He is on trilogy at night. We will see if the patient can bring his machine from home. If not we will ask respiratory to set up BiPAP (6) Coronary artery disease Is this a current diagnosis for this admission?: Yes Plan: Continue aspirin, statin medication, entresto and valsartan (7) DVT (deep venous thrombosis) Is this a current diagnosis for this admission?: Yes Plan: The patient has a history of a DVT with an IVC filter placed. Currently he is on full dose Lovenox until he gets venous Dopplers performed today. (8) Rheumatoid arthritis Is this a current diagnosis for this admission?: Yes Plan: On chronic therapy with methotrexate. (9) Opiate dependence, continuous Is this a current diagnosis for this admission?: Yes Plan: The patient has chronic pain with continuous narcotic use. Continue home regimen. (10) Obesity (BMI 30.0-34.9) Is this a current diagnosis for this admission?: Yes Plan: Dietary discretion is advised. (11) Full code status Is this a current diagnosis for this admission?: Yes - Time Time Spent with patient: 25-34 minutes - Inpatient Certification Based on my medical assessment, after consideration of the patient's comorbidities, presenting symptoms, or acuity I expect that the services needed warrant INPATIENT care.: Yes I certify that my determination is in accordance with my understanding of Medicare's requirements for reasonable and necessary INPATIENT services [42 CFR 412.3e].: Yes Medical Necessity: Other - Inpatient hospitalization remains necessary. This patient has significant comorbidities and is having an acute COPD exacerbation as well as pneumonia. He is at high risk of decompensation. He is chronically immunosuppressed due to his treatment for rheumatoid arthritis. Timing of disposition will be determined by his clinical course.
[2017-05-05] MEDS ORDERED: FERROUS SULFATE PO SCH (10:00)
[2017-05-05] MEDS ORDERED: PRAMIPEXOLE DI HCL PO SCH (10:00)
[2017-05-05] MEDS ORDERED: SACUBITRIL/VALSARTAN 49 MG/51 MG TABLET PO SCH (10:00)
[2017-05-05] MEDS ORDERED: CYANOCOBALAMIN PO SCH (10:00)
[2017-05-05] MEDS ORDERED: PREDNISONE 20 MG TABLET PO SCH (10:00)
[2017-05-05] MEDS ORDERED: VALSARTAN 80 MG TABLET PO SCH (10:00)
[2017-05-05] MEDS ORDERED: FUROSEMIDE 40 MG TABLET PO ONE (10:00)
--- NOTE | 2017-05-05 10:01 | RADIOLOGY REPORT (SQ) ---
EXAM DESCRIPTION: VENOUS UNILATERAL LOWER COMPLETED DATE/TIME: 05/05/2017 9:46 am REASON FOR STUDY: right leg D50.0 IRON DEFICIENCY ANEMIA SECONDARY TO BLOOD LOSS (CHRONI COMPARISON: None. TECHNIQUE: Dynamic and static de oliveira scale and color images acquired of the right leg venous system. S elected spectral images acquired with additional compression and augmentation maneuvers. The contrala teral common femoral vein and saphenofemoral junction were also imaged. Images stored on PACS. LIMITATIONS: None. FINDINGS: COMMON FEMORAL: Normal phasicity, compression and augmentation. No visualized echogenic ma terial on de oliveira scale. No defects on color images. FEMORAL: Normal compression and augmentation. No visualized echogenic material on de oliveira scale. No defe cts on color images. POPLITEAL: Normal compression, augmentation. No visualized echogenic material on de oliveira scale. No defec ts on color images. CALF VESSELS: Normal compression, augmentation. No visualized echogenic material on de oliveira scale. No de fects on color images. GSV and SSV: Normal compression, augmentation. No visualized echogenic material on de oliveira scale. No def ects on color images. ANY DEEP VENOUS INSUFFICIENCY: Not evaluated. ANY EVIDENCE OF POPLITEAL CYST: No. OTHER: No other significant finding. CONTRALATERAL COMMON FEMORAL VEIN AND SAPHENOFEMORAL JUNCTION: Normal phasicity, compression and augmentation. No visualized echogenic material on de oliveira scale. No de fects on color images. IMPRESSION: NO EVIDENCE DVT OR SVT IN THE RIGHT LEG. COMMENT: Pertinent positive or negative findings of the imaging study reported as a CRITICAL EXAM sherie MIN DO at09:55 on 05/05/2017. Category of Critical Exam: Venous doppler TECHNICAL DOCUMENTATION: JOB ID: [id number] [email or web address]- All Rights Reserved Reading location - IP/workstation name: [email or web address]
--- NOTE | 2017-05-05 10:28 | EKG REPORT ---
SEVERITY:- ABNORMAL ECG - SINUS RHYTHM VENTRICULAR PREMATURE COMPLEX INFERIOR INFARCT, AGE INDETERMINATE NONSPECIFIC T ABNORMALITIES, ANT-LAT LEADS : Confirmed by: Vimal Elizabeth MD 05-May-2017 10:26:30
--- NOTE | 2017-05-05 10:28 | EKG REPORT ---
SEVERITY:- ABNORMAL ECG - SINUS RHYTHM PROBABLE INFERIOR INFARCT, AGE INDETERMINATE NONSPECIFIC T ABNORMALITIES, ANT-LAT LEADS : Confirmed by: Vimal Elizabeth MD 05-May-2017 10:27:06
[2017-05-05] MEDS: CYANOCOBALAMIN (VITAMIN B-12) 1,000 MCG TABLET PO SCH (10:58)
[2017-05-05] MEDS: FOLIC ACID 1 MG TABLET PO SCH (10:58)
[2017-05-05] MEDS: ASPIRIN 81 MG TABLET, CHEWABLE PO SCH (10:58)
[2017-05-05] MEDS: GABAPENTIN 300 MG CAPSULE PO SCH ×2 (10:59→22:53)
[2017-05-05] MEDS: OXYCODONE HCL IR 5 MG TABLET PO PRN ×3 (10:59→23:12)
[2017-05-05] MEDS ORDERED: HEPARIN SOD (PORCINE) 5,000 UNIT/ML 1 ML SYRINGE SUBCUT SCH (14:00)
[2017-05-05] MEDS: PRAMIPEXOLE DI-HCL 0.5 MG TABLET PO SCH ×2 (14:47→22:54)
[2017-05-05] MEDS: METHYLPREDNISOLONE INJ 40 MG/1 ML SDV IV SCH ×2 (14:47→22:53)
[2017-05-05] MEDS: LANSOPRAZOLE 30 MG TAB.RAP.DR PO SCH (17:09)
[2017-05-05] MEDS: FLUTICASONE NASAL SPRAY 50 MCG/SPRY 120 SPRAY/16 GM NASL SCH (22:53)
[2017-05-05] MEDS: SIMVASTATIN 40 MG TABLET PO SCH (22:53)
[2017-05-06] MEDS: CHLORPHENIRAMINE MALEATE 4 MG TABLET PO SCH ×4 (00:52→18:22)
[2017-05-06] MEDS: IPRATROPIUM/ALBUTEROL 0.5-2.5 MG/3 ML AMPUL NEB SCH ×4 (01:50→19:36)
[2017-05-06] MEDS: LANSOPRAZOLE 30 MG TAB.RAP.DR PO SCH ×2 (06:49→18:21)
[2017-05-06] MEDS: PRAMIPEXOLE DI-HCL 0.5 MG TABLET PO SCH ×2 (06:50→15:08)
[2017-05-06] MEDS: METHYLPREDNISOLONE INJ 40 MG/1 ML SDV IV SCH (06:51)
[2017-05-06] MEDS: OXYCODONE HCL IR 5 MG TABLET PO PRN ×3 (06:58→22:49)
[2017-05-06 07:50] LABS: ABSOLUTE LYMPHOCYTES (AUTO) 0.7 10^3/uL (0.5-4.7); ABSOLUTE MONOCYTES (AUTO) 0.9 10^3/uL (0.1-1.4); ABSOLUTE NEUT (AUTO) 11.1 10^3/uL (1.7-8.2); BASOPHILS % (AUTO) 0.4 % (0-2); HEMATOCRIT 37.6 % (37.9-51.0); LYMPHOCYTES % (AUTO) 5.2 % (13-45); MEAN CORPUSCULAR HEMOGLOBIN 27.6 pg (27.0-33.4); MEAN CORPUSCULAR HGB CONC 31.8 g/dL (32.0-36.0); MEAN CORPUSCULAR VOLUME 87 fl (80-97); MONOCYTES % (AUTO) 6.9 % (3-13); PLATELET COUNT 319 10^3/uL (150-450); RED BLOOD COUNT 4.33 10^6/uL (4.35-5.55); RED CELL DISTRIBUTION WIDTH 19.7 % (11.5-14.0); SEGMENTED NEUTROPHILS % (AUTO) 87.5 % (42-78); TOTAL CELLS COUNTED % (AUTO) 100 %; WHITE BLOOD COUNT 12.7 10^3/uL (4.0-10.5)
[2017-05-06] MEDS ORDERED: LEVOFLOXACIN 750 MG/D5W RTU 750 MG/150 ML RTUPB IV SCH (08:00)
[2017-05-06 08:23] LABS: ANION GAP 9 (5-19); BLOOD UREA NITROGEN 19 mg/dL (7-20); CALCIUM 9.4 mg/dL (8.4-10.2); CARBON DIOXIDE 29 mmol/L (22-30); CHLORIDE 104 mmol/L (98-107); GLUCOSE 113 mg/dL (75-110); PHOSPHORUS 3.8 mg/dL (2.5-4.5); POTASSIUM 4.9 mmol/L (3.6-5.0); SODIUM 142.2 mmol/L (137-145)
[2017-05-06] MEDS: FUROSEMIDE 40 MG TABLET PO SCH (08:33)
[2017-05-06] MEDS ORDERED: FERROUS SULFATE 325 MG TABLET PO SCH (10:00)
[2017-05-06] MEDS ORDERED: HYDROCODONE BIT/HOMATROPINE SYRUP 5 ML UDCUP PO PRN (10:52)
[2017-05-06] MEDS ORDERED: GUAIFENESIN/CODEINE PHOS 100-10 MG/ 5 ML UDC PO PRN (11:00)
[2017-05-06] MEDS ORDERED: PREDNISONE 20 MG TABLET PO SCH (12:00)
[2017-05-06] MEDS: FOLIC ACID 1 MG TABLET PO SCH (12:07)
[2017-05-06] MEDS: ASPIRIN 81 MG TABLET, CHEWABLE PO SCH (12:07)
[2017-05-06] MEDS: GABAPENTIN 300 MG CAPSULE PO SCH ×2 (12:08→22:48)
[2017-05-06] MEDS: CYANOCOBALAMIN (VITAMIN B-12) 1,000 MCG TABLET PO SCH (12:08)
[2017-05-06] MEDS: ENOXAPARIN SODIUM INJ 80 MG/0.8 ML DISP.SYRIN SUBCUT SCH (12:12)
[2017-05-06] MEDS ORDERED: LEVOFLOXACIN 750 MG TABLET PO ONE (15:00)
[2017-05-06] MEDS: FLUTICASONE NASAL SPRAY 50 MCG/SPRY 120 SPRAY/16 GM NASL SCH ×2 (15:10→22:48)
--- NOTE | 2017-05-06 16:24 | PDOC PROGRESS REPORT ---
Subjective Progress Note for:: 05/06/17 Subjective:: Patient is a 66-year-old male with a past medical history significant for rheumatoid arthritis, chronic pain with continuous narcotic use and systolic congestive heart failure with an ejection fraction of 35%. He has known obstructive sleep apnea and uses a trilogy device at night. He has known coronary artery disease status post [place] and stent placement. He has deep history of a DVT status post IVC filter and COPD. The patient presented to the emergency room with worsening shortness of trip. Breath. He had been of breath. He had been having issues at home with seasonal allergies. The patient was initially started on IV Solu-Medrol and IV Levaquin. He has responded quite nicely. He transiently required oxygen but was quickly weaned off. He has not looked acutely ill during this hospitalization. Today when I saw him he states that he feels well enough to go home. He states that his breathing is not back to its baseline and he knows that he is still having issues with wheezing but feels much improved since the time of admission. He has lost his IV access and he does not want to have another one placed. He denies fever chills. No chest pain or heart palpitations. No nausea, vomiting or diarrhea. No urinary complaints. Reason For Visit: COPD EXACERBATION,ACUTE ON CHRONIC BRONCHITIS Physical Exam Vital Signs: Temp Pulse Resp BP Pulse Ox 98.3 F 90 18 122/56 L 94 05/06/17 10:40 05/06/17 14:12 05/06/17 14:12 05/06/17 10:40 05/06/17 14:12 Pulse Oximeter Continuous Start: 05/05/17 06: 41 Freq: RTQ4 Status: Active Document 05/06/17 14:12 [facility] (Rec: 05/06/17 14:13 [facility] [email or web address]) Pulse Oximetry Assessment Oxygen Saturation (92-100) 94 Oxygen Delivery Method Room Air Fraction of Inspired Oxygen (FIO2) 21 Equipment Usage Equipment in Use Continuous SpO2 Machine # 6 Intake & Output 05/05/17 05/06/17 05/07/17 06:59 06:59 06:59 Intake Total 640 Output Total 550 Balance 90 Weight 83.7 kg General appearance: PRESENT: no acute distress, obese, well-developed, well- nourished Mouth exam: PRESENT: moist, tongue midline Respiratory exam: PRESENT: other - The patient continues to have coarse wheezing noted throughout all lung steinberg. Cardiovascular exam: PRESENT: RRR. ABSENT: diastolic murmur, rubs, systolic murmur GI/Abdominal exam: PRESENT: normal bowel sounds, soft. ABSENT: distended, guarding, mass, organolmegaly, rebound, tenderness Rectal exam: PRESENT: deferred Extremities exam: PRESENT: full ROM. ABSENT: calf tenderness, clubbing, pedal edema Musculoskeletal exam: PRESENT: ambulatory Neurological exam: PRESENT: alert, awake, oriented to person, oriented to place , oriented to time, oriented to situation, CN II-XII grossly intact. ABSENT: motor sensory deficit Psychiatric exam: PRESENT: appropriate affect, normal mood. ABSENT: homicidal ideation, suicidal ideation Skin exam: PRESENT: dry, intact, warm. ABSENT: cyanosis, rash Results Laboratory Results: 05/06/17 06:57 05/06/17 06:57 05/06/17 05/06/17 06:57 06:57 WBC 12.7 H RBC 4.33 L Hgb 12.0 L Hct 37.6 L MCV 87 MCH 27.6 MCHC 31.8 L RDW 19.7 H Plt Count 319 Seg Neutrophils % 87.5 H Lymphocytes % 5.2 L Monocytes % 6.9 Eosinophils % 0.0 Basophils % 0.4 Absolute Neutrophils 11.1 H Absolute Lymphocytes 0.7 Absolute Monocytes 0.9 Absolute Eosinophils 0.0 Absolute Basophils 0.0 Sodium 142.2 Potassium 4.9 Chloride 104 Carbon Dioxide 29 Anion Gap 9 BUN 19 Creatinine 0.68 Est GFR ( Amer) > 60 Est GFR (Non-Af Amer) > 60 Glucose 113 H Calcium 9.4 Phosphorus 3.8 Magnesium 1.9 Impressions: Chest X-Ray 05/04/17 21:16 IMPRESSION: NO ACUTE RADIOGRAPHIC FINDING IN THE CHEST. NO SIGNIFICANT CHANGE FROM PRIOR STUDY. Venous Doppler Study 05/05/17 06:12 IMPRESSION: NO EVIDENCE DVT OR SVT IN THE RIGHT LEG. Assessment & Plan - Diagnosis (1) Acute and chronic respiratory failure with hypercapnia Is this a current diagnosis for this admission?: Yes Plan: The patient is already back to his baseline oxygen requirement. His respiratory failure is due to a COPD exacerbation and probable early pneumonia. Continue aggressive breathing treatments and therapy as outlined below. (2) Pneumonia Qualifiers: Laterality: right Lung location: lower lobe of lung Is this a current diagnosis for this admission?: Yes Plan: CT scan of the chest was concerning for a possible early pneumonia. Concerns for community-acquired pathogen such as gram positives and atypicals. The patient will continue IV Levaquin. This is day #2 of treatment. I am transitioning him to oral Levaquin today as he has lost his IV access. (3) COPD exacerbation Is this a current diagnosis for this admission?: Yes Plan: Continue aggressive breathing treatments. Due to his loss of IV access I am transitioning him to 60 mg of p.o. prednisone. Due to his continued coarse wheezing noted throughout all of his lung steinberg I want to keep him in the hospital overnight to make sure he makes this transition successfully. If he does well tomorrow he could possibly be considered for discharge. (4) Diastolic congestive heart failure Qualifiers: Heart failure chronicity: chronic Qualified Code(s): I50.32 - Chronic diastolic (congestive) heart failure Is this a current diagnosis for this admission?: Yes Plan: At this point the patient does not appear to be decompensated. (5) Obstructive sleep apnea Is this a current diagnosis for this admission?: Yes Plan: He is on trilogy at night. (6) Coronary artery disease Is this a current diagnosis for this admission?: Yes Plan: Continue his home regimen (7) DVT (deep venous thrombosis) Is this a current diagnosis for this admission?: Yes Plan: The patient has a history of a DVT with an IVC filter placed. He did complain of leg swelling at the time of admission. He was placed on full dose Lovenox as a precaution. Venous Dopplers were negative. His Lovenox will be stopped. (8) Rheumatoid arthritis Is this a current diagnosis for this admission?: Yes Plan: On chronic therapy with methotrexate. (9) Opiate dependence, continuous Is this a current diagnosis for this admission?: Yes Plan: The patient has chronic pain with continuous narcotic use. Continue home regimen. (10) Obesity (BMI 30.0-34.9) Is this a current diagnosis for this admission?: Yes Plan: Dietary discretion is advised. (11) Full code status Is this a current diagnosis for this admission?: Yes - Time Time Spent with patient: 15-24 minutes - Inpatient Certification Medical Necessity: Other - Inpatient hospitalization remains necessary. The patient continues to have significant wheezing. I am transitioning him over to an oral regimen today. The patient does not wish to have another IV placed. If he does well he could possibly be transitioned home in the next 24-48 hours.
[2017-05-06] MEDS: SIMVASTATIN 40 MG TABLET PO SCH (22:48)
[2017-05-06] MEDS: PRAMIPEXOLE DI-HCL 0.25 MG TABLET PO SCH (22:49)
[2017-05-07] MEDS: CHLORPHENIRAMINE MALEATE 4 MG TABLET PO SCH ×2 (00:34→06:23)
[2017-05-07] MEDS: IPRATROPIUM/ALBUTEROL 0.5-2.5 MG/3 ML AMPUL NEB SCH ×2 (01:34→08:51)
[2017-05-07] MEDS: OXYCODONE HCL IR 5 MG TABLET PO PRN (06:23)
[2017-05-07] MEDS: PRAMIPEXOLE DI-HCL 0.25 MG TABLET PO SCH (06:23)
[2017-05-07] MEDS: LANSOPRAZOLE 30 MG TAB.RAP.DR PO SCH (06:23)
[2017-05-07 06:44] LABS: HEMATOCRIT 34.8 % (37.9-51.0); HEMOGLOBIN 11.3 g/dL (13.5-17.0); MEAN CORPUSCULAR HGB CONC 32.4 g/dL (32.0-36.0); MEAN CORPUSCULAR VOLUME 86 fl (80-97); PLATELET COUNT 278 10^3/uL (150-450); RED BLOOD COUNT 4.04 10^6/uL (4.35-5.55); WHITE BLOOD COUNT 10.1 10^3/uL (4.0-10.5)
[2017-05-07] MEDS: FUROSEMIDE 40 MG TABLET PO SCH (08:34)
--- NOTE | 2017-05-07 09:18 | Physician Advisory Note ---
Physician Advisor ProgressNote .: Pursuant to the plan for [place] Bonilla, I have reviewed the medical record for this patient. Physician Advisor Statement: Appropriate for Inpt status as of 05/05 PM when still not back to baseline w/ breathing, needing 2nd MN in hospital w/cont'd close monitoring w/tx.s. Please consider documenting, if you agree: 1. "EF not 35%, but 50-55%" (per ECHO 11/2014), or "Chronic Systolic & DIastolic CHF, EF 35%" (H&P states EF 35%) 2. S/s supporting dx of PNA, besides CT findings: Any tachypnea >24? Sputum? Any fever or chills? (+)pleuritic CP (per ED RN), (+)tachycardia, ... - Already documented by attending: SOB, crackles/rales, Thanks! CK
[2017-05-07] MEDS ORDERED: LEVOFLOXACIN 750 MG TABLET PO SCH (10:00)
--- NOTE | 2017-05-07 10:03 | PDOC DISCHARGE SUMMARY ---
General - Admit/Disc Date/PCP Admission Date/Primary Care Provider: 05/05/17 06:27 DEVORA VILLASEÑOR MD Discharge Date: 05/07/17 - Discharge Diagnosis (1) COPD exacerbation Is this a current diagnosis for this admission?: Yes Summary: He has progressed well. He has been off oxygen for greater than 24 hours. He continues to have some LLL expiratory wheezes and has been encouraged to use his incentive spirometry after discharge. He will also need to complete a few more days of oral prednisone and levaquin. (2) Coronary artery disease Is this a current diagnosis for this admission?: Yes Summary: continue aspirin and statin after discharge (3) Diastolic congestive heart failure Is this a current diagnosis for this admission?: Yes Summary: He appears to be euvolemic. He is currently on lasix and will need a BMP next week with his PCP (4) Pneumonia Is this a current diagnosis for this admission?: Yes Summary: Clinically improving. Repeat CXR in 4-6 weeks and complete his course of antibiotics (5) Full code status Is this a current diagnosis for this admission?: Yes Summary: Continue (6) Obesity (BMI 30.0-34.9) Is this a current diagnosis for this admission?: Yes Summary: Discussed diet and exercise with him. This will need to be monitored by his PCP and will help both his CHF and his COPD - Additional Information Resuscitation Status: Full Code Discharge Diet: Cardiac Discharge Activity: Activity As Tolerated Prescriptions: Fluticasone Propionate [Flonase Nasal Gibson 50 Mcg/Gibson 16 gm] 2 spray NASL DAILY 30 Days #1 spray.pump Furosemide [Lasix 40 mg Tablet] 40 mg PO QAM 30 Days #30 tablet Ipratropium/Albuterol Sulfate [Duoneb 3 ml Ampul] 3 ml NEB RTQ6 10 Days #25 vial.neb Levofloxacin [Levaquin 750 mg Tablet] 750 mg PO DAILY 5 Days #5 tablet Prednisone [Deltasone 20 mg Tablet] 60 mg PO NOON 3 Days #9 tablet Home Medications: Atorvastatin Calcium [Lipitor 40 mg Tablet] 40 mg PO QHS 05/05/17 Folic Acid [Folvite 1 mg Tablet] 1 mg PO DAILY 05/05/17 Gabapentin [Neurontin] 600 mg PO Q12 05/05/17 Hydrocodone Bit/Acetaminophen [Hydrocodon-Acetaminophen 5-325] 1 tab PO Q6HP PRN 05/05/17 Methotrexate Sodium [Methotrexate] 9 tab PO MO@1000 05/05/17 Omeprazole 20 mg PO DAILY 05/05/17 Oxycodone HCl [Oxy-Ir 5 mg Tablet] 10 mg PO Q8HP PRN 05/05/17 Oxycodone Myristate [Xtampza ER] 9 mg PO Q12 05/05/17 Pramipexole Di-HCl [Mirapex] 1 mg PO Q8 05/05/17 Acetaminophen [Tylenol 325 mg Tablet] 650 mg PO Q4HP PRN tablet 05/07/17 Aspirin [Aspirin 81 mg Chewable Tablet] 81 mg PO DAILY tab.chew 05/07/17 Ferrous Sulfate [Feosol 325 mg Tablet] 325 mg PO DAILY tablet 05/07/17 Fluticasone Propionate [Flonase Nasal Gibson 50 Mcg/Gibson 16 gm] 2 spray NASL DAILY 30 Days #1 spray.pump 05/07/17 Folic Acid [Folvite 1 mg Tablet] 1 mg PO DAILY tablet 05/07/17 Furosemide [Lasix 40 mg Tablet] 40 mg PO QAM 30 Days #30 tablet 05/07/17 Gabapentin [Neurontin 300 mg Capsule] 600 mg PO Q12 capsule 05/07/17 Ipratropium/Albuterol Sulfate [Duoneb 3 ml Ampul] 3 ml NEB RTQ6 10 Days #25 vial.neb 05/07/17 Levofloxacin [Levaquin 750 mg Tablet] 750 mg PO DAILY 5 Days #5 tablet 05/07/17 Prednisone [Deltasone 20 mg Tablet] 60 mg PO NOON 3 Days #9 tablet 05/07/17 History of Present Illness History of Present Illness: SERGIO YAÑEZ is a 66 year old male Hospital Course Hospital Course: He is a very pleasant 66 y/o male admitted for COPD exacerbation and pneumonia. He has a history fo RA, Chronic narcotic use, diastolic heart failure with an EF of 55%. He has know RACHELLE and uses trilogy at night. We have discussed diet and exercise and the importance it would play in helping his COPD and CHF. During his admission he has progressed well. He has been weaned off oxygen. His tachycardia and tachypnea have resolved. He has returned to his baseline functioning. He will need to complete a few more days of oral steroids and levaquin. He has been encouraged to continue using his incentive spirometry after discharge. Physical Exam Vital Signs: Temp Pulse Resp BP Pulse Ox 97.9 F 102 H 18 138/64 H 92 05/07/17 07:15 05/07/17 08:52 05/07/17 08:52 05/07/17 07:15 05/07/17 08:52 Pulse Oximeter Continuous Start: 05/05/17 06: 41 Freq: RTQ4 Status: Active Document 05/07/17 08:52 [facility] (Rec: 05/07/17 09:03 [facility] [email or web address]) Pulse Oximetry Assessment Oxygen Saturation (92-100) 92 Oxygen Delivery Method Room Air Fraction of Inspired Oxygen (FIO2) 21 Equipment Usage Equipment in Use Continuous SpO2 Machine # N 6 Intake & Output 05/06/17 05/07/17 05/08/17 06:59 06:59 06:59 Intake Total 640 2388 Output Total 550 08057 Balance 90 -27792 Weight 83.7 kg 82.6 kg General appearance: PRESENT: no acute distress, well-developed, well-nourished Head exam: PRESENT: atraumatic, normocephalic Mouth exam: PRESENT: moist, tongue midline Neck exam: ABSENT: carotid bruit, JVD, lymphadenopathy, thyromegaly Respiratory exam: PRESENT: wheezes - LLL. ABSENT: clear to auscultation maday, rales, rhonchi Cardiovascular exam: PRESENT: RRR. ABSENT: diastolic murmur, rubs, systolic murmur Pulses: PRESENT: normal dorsalis pedis pul Vascular exam: PRESENT: normal capillary refill GI/Abdominal exam: PRESENT: normal bowel sounds, soft. ABSENT: distended, guarding, mass, organolmegaly, rebound, tenderness Extremities exam: PRESENT: full ROM. ABSENT: calf tenderness, clubbing, pedal edema Neurological exam: PRESENT: alert, awake, oriented to person, oriented to place , oriented to time, oriented to situation. ABSENT: motor sensory deficit Results Laboratory Results: 05/07/17 06:09 05/06/17 06:57 05/07/17 06:09 WBC 10.1 RBC 4.04 L Hgb 11.3 L Hct 34.8 L MCV 86 MCH 28.0 MCHC 32.4 RDW 19.0 H Plt Count 278 Impressions: Chest X-Ray 05/04/17 21:16 IMPRESSION: NO ACUTE RADIOGRAPHIC FINDING IN THE CHEST. NO SIGNIFICANT CHANGE FROM PRIOR STUDY. Venous Doppler Study 05/05/17 06:12 IMPRESSION: NO EVIDENCE DVT OR SVT IN THE RIGHT LEG. Qualifiers - * PATEINT BEING DISCHARGED WITH ANY OF THE FOLLOWING DIAGNOSIS?: Heart Failure - Diastolic acute on chronic CHF with echo showing EF 55% VTE patient discharged on overlapping Therapy?: No HF Pt being discharged on ACEI for LVEF less than 40%?: No Reason(s) for not prescribing ACEI:: Procedure not indicated HF Pt being discharged on ARBS for LVEF less than 40%?: No Reason(s) for not prescribing ARBS:: Procedure not indicated HF Pt with Afib discharged with Warfarin?: No Reason(s) for not prescribing Warfarin:: Procedure not indicated HF Pt discharged on evidence-based Beta Madelin:: No Reason(s) for not prescribing evidence-based Beta Madelin:: Tx not tolerated Plan Time Spent: Less than 30 Minutes
[2017-05-07 10:21] VITALS: BP 126/82
== END 2017-05-07 11:40 | disposition home or self-care (01) ==
LOC: ER 20:54 → EH 05-05 06:27 → 4N 05-05 16:05
PROVIDERS: ADMIT Internal Medicine; ATTEND Internal Medicine
DX: J96.02 Acute respiratory failure with hypercapnia (principal); J44.1 Chronic obstructive pulmonary disease with (acute) exacerbation; J44.0 Chronic obstructive pulmonary disease with (acute) lower respiratory infection; J18.9 Pneumonia, unspecified organism; I50.32 Chronic diastolic (congestive) heart failure; M06.9 Rheumatoid arthritis, unspecified; F11.20 Opioid dependence, uncomplicated; I25.2 Old myocardial infarction; Z87.891 Personal history of nicotine dependence; K59.00 Constipation, unspecified; M79.89 Other specified soft tissue disorders; E66.9 Obesity, unspecified; Z68.30 Body mass index [BMI] 30.0-30.9, adult
CPT/HCPCS: 93005 ×2; 96376; 94640 ×5; 99285; 96372; 96375; 96365; 96367; 36415 ×4; 82553; 82550; 83735; 84100; 85025 ×2; 85027; 80048; 80053; 81001; 84484 ×2; 85379; 82803; 83880; 93971; 71045; 71275; 74174; 94799; 93010 ×2; 94667; 94762 ×2; 94668 ×2; G0378 ×4; A9270 ×39; J2920; J2930; J3475; J3490; J1650 ×2; J1956; J7512; J7620

== ENCOUNTER 2017-05-09 21:14 | Emergency (ER) | payer MEDICARE, BC ==
[2017-05-09 21:24] VITALS: BP 104/57
== END 2017-05-09 22:10 | disposition left against medical advice (07) ==
LOC: ER 21:14
DX: Z53.21 Procedure and treatment not carried out due to patient leaving prior to being seen by health care provider (principal)

== ENCOUNTER 2017-05-10 12:26 | Emergency (ER) | payer MEDICARE, BC ==
[2017-05-10 12:32] VITALS: BP 109/67
--- NOTE | 2017-05-10 13:52 | ER Document Report ---
ED Extremity Problem, Upper - General Chief Complaint: Arm Problem Stated Complaint: ARM PAIN Time Seen by Provider: 05/10/17 12:52 Mode of Arrival: Ambulatory Information source: Patient Notes: Patient is a 66-year-old male who presents to the ER today for right arm pain and swelling that has actually improved after being admitted to the hospital May 05, diagnosed with pneumonia, having a CAT scan with contrast and having IV contrast infiltrate in his arm. Patient was called by someone in the hospital and told to come back in to get an x-ray of the arm because of the infiltration. Patient states that is the only reason that he is here is to get an x-ray of the arm because he was called to do so. They also came yesterday and left without being seen because they were also told that this visit would be very quick and yesterday they had to wait over 2 hours in the waiting room and refused to wait any longer. Patient is angry that he is here and does not understand why he had to come back. Patient has been applying warm compresses to the right arm and states that it is actually much better. TRAVEL OUTSIDE OF THE [place] IN LAST 30 DAYS: No - Related Data Allergies/Adverse Reactions: No Known Allergies Allergy (Verified 05/10/17 12:27) Past Medical History - General Information source: Patient - Social History Smoking Status: Unknown if Ever Smoked Family History: Reviewed & Not Pertinent, Arthritis, DM, Other Patient has suicidal ideation: No Patient has homicidal ideation: No - Past Medical History Cardiac Medical History: Reports: Hx Congestive Heart Failure, Hx DVT, Hx Heart Attack, Hx Hypertension, Hx Pulmonary Embolism Pulmonary Medical History: Reports: Hx Bronchitis, Hx COPD, Hx Sleep Apnea Denies: Hx Asthma, Hx Pneumonia, Hx Tuberculosis Neurological Medical History: Denies: Hx Seizures Renal/ Medical History: Denies: Hx Benign Prostatic Hyperplasia, Hx End Stage Renal Disease, Hx Kidney Stones, Hx Peritoneal Dialysis GI Medical History: Denies: Hx Cirrhosis, Hx Gastroesophageal Reflux Disease, Hx Ulcer Musculoskeltal Medical History: Reports Hx Arthritis, Denies Hx Multiple Sclerosis Psychiatric Medical History: Denies: Hx Bipolar Disorder, Hx Depression, Hx Schizophrenia Past Surgical History: Reports: Hx Cholecystectomy, Hx Orthopedic Surgery - carpel tunnel,neck, ORIF right wrist - Immunizations Immunizations up to date: Yes Hx Diphtheria, Pertussis, Tetanus Vaccination: Yes Hx Pneumococcal Vaccination: 02/05/13 Review of Systems - Review of Systems Constitutional: No symptoms reported EENT: No symptoms reported Cardiovascular: No symptoms reported Respiratory: No symptoms reported Gastrointestinal: No symptoms reported Genitourinary: No symptoms reported Male Genitourinary: No symptoms reported Musculoskeletal: No symptoms reported Skin: See HPI Hematologic/Lymphatic: No symptoms reported Neurological/Psychological: No symptoms reported Physical Exam - Vital signs Vitals: Temp Pulse Resp BP Pulse Ox 98.4 F 88 17 109/67 94 05/10/17 12:05/10/17 12:05/10/17 12:05/10/17 12:31 05/10/17 12:31 - Notes Notes: PHYSICAL EXAMINATION: GENERAL: Well-appearing and in no acute distress. HEAD: Atraumatic, normocephalic. EYES: Pupils equal round and reactive to light, extraocular movements intact, sclera anicteric, conjunctiva are normal. NECK: Normal range of motion, supple without lymphadenopathy LUNGS: CTAB and equal. No wheezes rales or rhonchi. HEART: Regular rate and rhythm without murmurs EXTREMITIES: Normal range of motion, no pitting edema. No cyanosis. NEUROLOGICAL: Cranial nerves grossly intact. Normal sensory/motor exams. PSYCH: Normal mood, normal affect. SKIN: Warm, Dry, normal turgor, no rashes or lesions noted Course - Re-evaluation Re-evalutation: 05/10/17 20:05 X-ray of the right arm negative for any acute pathology, radiologist actually called me and states she sees no contrast in the arm. Clinically the arm looks normal no erythema or induration, no tenderness, I did encourage patient to continue warm compresses until he feels it is completely back to normal. I feel poorly that patient had to come back into the emergency department when this was actually taking care of at home just fine. - Vital Signs Vital signs: Temp Pulse Resp BP Pulse Ox 98.4 F 88 17 109/67 94 05/10/17 12:31 05/10/17 12:05/10/17 12:05/10/17 12:31 05/10/17 12:31 Discharge - Discharge Clinical Impression: Right arm pain Condition: Stable Disposition: HOME, SELF-CARE Additional Instructions: Return immediately for any new or worsening symptoms. Follow up with primary care provider, call tomorrow to make followup appointment.
--- NOTE | 2017-05-10 13:57 | RADIOLOGY REPORT (SQ) ---
EXAM DESCRIPTION: HUMERUS RIGHT COMPLETED DATE/TIME: 05/10/2017 1:30 pm REASON FOR STUDY: CT contrast infiltrated, pt told to come for x ray COMPARISON: CT angio chest abdomen and pelvis 05/05/2017 NUMBER OF VIEWS: Two views. TECHNIQUE: Two radiographic images were acquired of the right humerus to include elbow and shoulder in at least one projection. LIMITATIONS: None. FINDINGS: MINERALIZATION: Normal. BONES: No acute fracture or dislocation. No worrisome bone lesions. SOFT TISSUES: No obvious swelling. No radiopaque foreign body. OTHER: Patient had contrast and saline infiltration during CT angio on 05/05/2017. There is no persis tent soft tissue contrast. No soft tissue gas. No bony findings. Results discussed with Noreen bee in the emergency room IMPRESSION: NEGATIVE STUDY OF THE RIGHT HUMERUS. NO RADIOGRAPHIC EVIDENCE OF ACUTE INJURY. TECHNICAL DOCUMENTATION: JOB ID: [id number] [employer]- All Rights Reserved Reading location - IP/workstation name: [email or web address]
== END 2017-05-10 13:56 | disposition home or self-care (01) ==
LOC: ER 12:26
DX: M79.601 Pain in right arm (principal); Z98.890 Other specified postprocedural states; I10 Essential (primary) hypertension; I25.2 Old myocardial infarction; Z86.718 Personal history of other venous thrombosis and embolism; J44.9 Chronic obstructive pulmonary disease, unspecified
CPT/HCPCS: 99283

== ENCOUNTER 2017-08-09 22:07 | Inpatient (IN) | payer MEDICARE, BC ==
[2017-08-09] MEDS ORDERED: METHYLPREDNISOLONE INJ 125 MG/2 ML SDV IV ONE (22:27)
[2017-08-09] MEDS ORDERED: IPRATROPIUM/ALBUTEROL 0.5-2.5 MG/3 ML AMPUL NEB ONE (22:27)
--- NOTE | 2017-08-09 22:30 | ER Document Report ---
ED General - General Chief Complaint: Breathing Difficulty Stated Complaint: TROUBLE BREATHING Time Seen by Provider: 08/09/17 22:25 Notes: Patient is a 66-year-old male presents with complaint of difficulty breathing, tightness, wheezing, being very sleepy. The started today. He does have a history of severe COPD with CO2 retention. His oxygen saturations are low from. At nighttime he does wear portable ventilator machine does help him with his breathing. He denies any fevers. No chest pain. No abdominal pain. No vomiting. 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 He has never required intubation. TRAVEL OUTSIDE OF THE [place] IN LAST 30 DAYS: No - Related Data Allergies/Adverse Reactions: No Known Allergies Allergy (Verified 05/10/17 12:27) Past Medical History - Social History Smoking Status: Former Smoker Frequency of alcohol use: None Drug Abuse: None Family History: Reviewed & Not Pertinent, Arthritis, DM, Other - Past Medical History Cardiac Medical History: Reports: Hx Congestive Heart Failure, Hx DVT, Hx Heart Attack, Hx Hypertension, Hx Pulmonary Embolism Pulmonary Medical History: Reports: Hx Bronchitis, Hx COPD, Hx Sleep Apnea Denies: Hx Asthma, Hx Pneumonia, Hx Tuberculosis Neurological Medical History: Denies: Hx Seizures Renal/ Medical History: Denies: Hx Benign Prostatic Hyperplasia, Hx End Stage Renal Disease, Hx Kidney Stones, Hx Peritoneal Dialysis GI Medical History: Denies: Hx Cirrhosis, Hx Gastroesophageal Reflux Disease, Hx Ulcer Musculoskeltal Medical History: Reports Hx Arthritis, Denies Hx Multiple Sclerosis Psychiatric Medical History: Denies: Hx Bipolar Disorder, Hx Depression, Hx Schizophrenia Past Surgical History: Reports: Hx Cholecystectomy, Hx Orthopedic Surgery - carpel tunnel,neck, ORIF right wrist - Immunizations Immunizations up to date: Yes Hx Diphtheria, Pertussis, Tetanus Vaccination: Yes Hx Pneumococcal Vaccination: 02/05/13 Review of Systems - Review of Systems Notes: My Normal Review Basic REVIEW OF SYSTEMS: CONSTITUTIONAL : Denies fever, chills, or sweats. Denies recent illness. EENT: Denies eye, ear, throat, or mouth pain or symptoms. Denies nasal or sinus congestion. CARDIOVASCULAR: Denies chest pain. RESPIRATORY: Guilty breathing GASTROINTESTINAL: Denies abdominal pain. Denies nausea, vomiting, or diarrhea. MUSCULOSKELETAL: Denies neck or back pain or joint pain or swelling. SKIN: Denies rash or skin lesions. NEUROLOGICAL: Has been sleepy. Denies weakness or paralysis or loss of use of either side. Denies problems with gait or speech. Denies sensory or motor loss. ALL OTHER SYSTEMS REVIEWED AND NEGATIVE. Physical Exam - Vital signs Vitals: Temp Pulse Resp BP Pulse Ox 97.6 F 99 24 H 98/55 L 94 08/09/17 22:15 08/09/17 22:15 08/09/17 22:15 08/09/17 22:15 08/09/17 22:15 - Notes Notes: General Appearance: Well nourished, alert, cooperative, mild to moderate acute distress, no obvious discomfort. Vitals: reviewed, See vital signs table. Head: no swelling or tenderness to the head Eyes: PERRL, EOMI, Conjuctiva clear Mouth: No decreasd moisture Throat: No tonsillar inflammation, No airway obstruction, No lymphadenopathy Neck: Supple, no neck tenderness, No thyromegaly Lungs: Views wheezing, No rales, No rhonci, mild accessory muscle use, failure air exchange bilaterally. Heart: Normal rate, Regular rythm, No murmur, no rub Abdomen: Normal BS, soft, No rigidity, No abdominal tenderness, No guarding, no rebound, no abdominal masses, no organomegaly Extremities: strength 5/5 in all extremities, good pulses in all extremities, no swelling or tenderness in the extremities, no edema. Skin: warm, dry, appropriate color, no rash Neuro: speech clear, oriented x 3, normal affect, responds appropriately to questions. Course - Re-evaluation Re-evalutation: 08/10/17 02:40 I spoke with the patient and he is feeling improved. Initially his blood gas did not change much on our BiPAP. His therefore went home and got his noninvasive ventilator. Just before switching over we did obtain a third blood gas to get a baseline before switching to noninvasive ventilator. His ventilator was not oxygenating appropriately and therefore took him off and switch back on BiPAP and also his third blood gas came back showing that he was having quite a bit of improvement now on our BiPAP. Clinically looks improved. His lung steinberg have cleared significantly and his mental status is much clearer. I spoke with the hospitalist, Dr. Salinas, who agrees to evaluate the patient for admission due to hypercapnia and respiratory acidosis most likely related to his COPD. Dictation of this chart was performed using voice recognition software; therefore, there may be some unintended grammatical errors. - Vital Signs Vital signs: Temp Pulse Resp BP Pulse Ox 97.6 F 99 17 110/72 99 08/09/17 22:15 08/09/17 22:15 08/10/17 01:01 08/10/17 01:01 08/10/17 01:01 - Laboratory Result Diagrams: 08/09/17 22:38 08/09/17 22:38 Laboratory results interpreted by me: 08/09/17 08/09/17 08/09/17 22:38 22:38 22:38 RBC 4.16 L Hgb 12.1 L Hct 37.3 L RDW 18.2 H Lymphocytes % 11.2 L VBG pH 7.22 L VBG pCO2 79.0 H* BUN 32 H Creatinine 1.30 H Est GFR (Non-Af Amer) 55 L Calcium 7.7 L Direct Bilirubin 0.5 H 08/09/17 23:53 RBC Hgb Hct RDW Lymphocytes % VBG pH 7.24 L VBG pCO2 75.9 H* BUN Creatinine Est GFR (Non-Af Amer) Calcium Direct Bilirubin - EKG Interpretation by Me Additional EKG results interpreted by me: 08/09/17 22:32 EKG is reviewed and interpreted by me. EKG shows sinus rhythm with rate of [address] segment elevation or depression. Patient does have T-wave inversions in leads I to III, aVF, V4, V5 V6. These are unchanged comparison to his old EKG from May 04, 2017. ME interval, QRS duration, QTc intervals are within normal range. Critical Care Note - Critical Care Note Total time excluding time spent on procedures (mins): 35 Comments: Vehicle care time approximately 35 minutes due to frequent re-evaluations, management of respiratory acidosis, and management of hypoxemia. Discharge - Discharge Clinical Impression: Acute and chronic respiratory failure with hypercapnia Condition: Stable Disposition: ADMITTED INPATIENT Admitting Provider: Hospitalist Unit Admitted: Telemetry
[2017-08-09 22:49] LABS: ABSOLUTE BASOPHILS # (AUTO) 0.1 10^3/uL (0.0-0.2); ABSOLUTE EOSINOPHILS # (AUTO) 0.3 10^3/uL (0.0-0.6); ABSOLUTE LYMPHOCYTES (AUTO) 1.2 10^3/uL (0.5-4.7); ABSOLUTE MONOCYTES (AUTO) 1.2 10^3/uL (0.1-1.4); ABSOLUTE NEUT (AUTO) 7.7 10^3/uL (1.7-8.2); BASOPHILS % (AUTO) 0.9 % (0-2); EOSINOPHILS % (AUTO) 2.9 % (0-6); HEMATOCRIT 37.3 % (37.9-51.0); HEMOGLOBIN 12.1 g/dL (13.5-17.0); LYMPHOCYTES % (AUTO) 11.2 % (13-45); MEAN CORPUSCULAR HEMOGLOBIN 29.1 pg (27.0-33.4); MEAN CORPUSCULAR HGB CONC 32.5 g/dL (32.0-36.0); MEAN CORPUSCULAR VOLUME 90 fl (80-97); MONOCYTES % (AUTO) 11.1 % (3-13); PLATELET COUNT 251 10^3/uL (150-450); RED BLOOD COUNT 4.16 10^6/uL (4.35-5.55); RED CELL DISTRIBUTION WIDTH 18.2 % (11.5-14.0); SEGMENTED NEUTROPHILS % (AUTO) 73.9 % (42-78); TOTAL CELLS COUNTED % (AUTO) 100 %; WHITE BLOOD COUNT 10.4 10^3/uL (4.0-10.5)
--- NOTE | 2017-08-09 22:53 | RADIOLOGY REPORT (SQ) ---
EXAM DESCRIPTION: XR CHEST 1 VIEW COMPLETED DATE/TME: 08/09/2017 22:26 CLINICAL HISTORY: 66 years Male, dyspnea COMPARISON: None. NUMBER OF VIEWS/TECHNIQUE: 1/AP FINDINGS: Adequate lung volume, small left lower lobar atelectasis or scar, normal cardiac silhouette, and intact bony thorax. IMPRESSION: No acute cardiopulmonary findings.
[2017-08-09 23:09] LABS: ALANINE AMINOTRANSFERASE 36 U/L (21-72); ALKALINE PHOSPHATASE 91 U/L (38-126); ANION GAP 16 (5-19); ASPARTATE AMINO TRANSFERASE 17 U/L (17-59); BILIRUBIN,DIRECT 0.5 mg/dL (0.0-0.4); BILIRUBIN,TOTAL 0.5 mg/dL (0.2-1.3); BLOOD UREA NITROGEN 32 mg/dL (7-20); CALCIUM 7.7 mg/dL (8.4-10.2); CARBON DIOXIDE 25 mmol/L (22-30); CHLORIDE 101 mmol/L (98-107); GLUCOSE 88 mg/dL (75-110); TOTAL PROTEIN 6.6 g/dL (6.3-8.2)
[2017-08-09 23:38] LABS: VENOUS BLOOD BASE EXCESS 1.8 mmol/L; VENOUS BLOOD HCO3 31.7 mmol/L (20-32); VENOUS BLOOD PH 7.22 (7.30-7.42)
[2017-08-09] MEDS ORDERED: NORMAL SALINE 500 ML IV ONE (23:38)
[2017-08-10 00:22] LABS: VENOUS BLOOD HCO3 31.4 mmol/L (20-32); VENOUS BLOOD PH 7.24 (7.30-7.42)
[2017-08-10 00:24] LABS: VENOUS BLOOD PCO2 75.9 mmHg (35-63)
[2017-08-10 01:44] LABS: VENOUS BLOOD BASE EXCESS -0.2 mmol/L; VENOUS BLOOD HCO3 26.8 mmol/L (20-32); VENOUS BLOOD PCO2 54.5 mmHg (35-63); VENOUS BLOOD PH 7.31 (7.30-7.42)
[2017-08-10] MEDS ORDERED: ACETAMINOPHEN 325 MG TABLET PO PRN (02:39)
[2017-08-10] MEDS ORDERED: CHLORPHENIRAMINE MALEATE 4 MG TABLET PO ONE (02:41)
[2017-08-10] MEDS ORDERED: GUAIFENESIN SYRP 200 MG/10 ML UDC PO PRN (02:41)
[2017-08-10] MEDS ORDERED: IPRATROPIUM/ALBUTEROL 0.5-2.5 MG/3 ML AMPUL NEB PRN (02:41)
[2017-08-10] MEDS ORDERED: FLUTICASONE NASAL SPRAY 50 MCG/SPRY 120 SPRAY/16 GM NASL SCH (02:45)
[2017-08-10] MEDS ORDERED: NALOXONE HCL INJ/PF 0.4 MG/1 ML SDV ONE (02:57)
[2017-08-10] MEDS ORDERED: FLUTICASONE NASAL SPRAY 50 MCG/SPRY 120 SPRAY/16 GM NASL ONE (03:00)
[2017-08-10] MEDS ORDERED: LACTULOSE SYRUP 20 GM/30 ML UDCUP PO ONE (03:23)
--- NOTE | 2017-08-10 03:23 | PDOC H&P ---
History of Present Illness Admission Date/PCP: 08/10/17 02:54 DEVORA VILLASEÑOR MD Patient complains of: Lethargy History of Present Illness: SERGIO YAÑEZ is a 66 year old male with a past medical history of morbid obesity, obstructive sleep apnea, COPD, tobacco dependence, rheumatoid arthritis , opiate dependent chronic pain coronary artery disease status post stent and congestive heart failure with an ejection fraction of 35%. Patient was noted by to have increased lethargy following patient's use of narcotic pain medication. Suspecting problems with his BiPAP is brought to the emergency room for evaluation where he is found to be hypercapnic and hypotensive. He received several boluses of saline and placed on hospital BiPAP he has had some improvement with his breathing but remains lethargic and hypotensive. He receives a trial of Narcan 0.4 resulting in an immediate improvement of blood pressure to 116/84 pulse of 90 satting 98% on 50% FiO2 BiPAP. Nonetheless he is referred to the hospitalist for admission after an otherwise unremarkable workup. He denies chest pain Past Medical History Cardiac Medical History: Reports: Congestive Heart Failure, DVT, Myocardial Infarction, Hypertension, Pulmonary Embolism Pulmonary Medical History: Reports: Bronchitis, Chronic Obstructive Pulmonary Disease (COPD), Sleep Apnea Denies: Asthma, Pneumonia, Tuberculosis Neurological Medical History: Denies: Seizures Renal/ Medical History: Denies: End Stage Renal Disease GI Medical History: Denies: Cirrhosis, Gastroesophageal Reflux Disease Musculoskeltal Medical History: Reports: Arthritis Psychiatric Medical History: Denies: Bipolar Disorder, Depression Hematology: Denies: Anemia, Bleeding Tendencies Past Surgical History Past Surgical History: Reports: Cholecystectomy, Orthopedic Surgery - carpel tunnel,neck, ORIF right wrist Social History Information Source: Relative, [facility] Records Lives with: Spouse/Significant other Smoking Status: Former Smoker Frequency of Alcohol Use: Occasional Hx Recreational Drug Use: No Drugs: None Hx Prescription Drug Abuse: No - Advance Directive Resuscitation Status: Full Code Family History Family History: Arthritis, DM, Other Parental Family History Reviewed: Yes Children Family History Reviewed: Yes Sibling(s) Family History Reviewed.: Yes Medication/Allergy Home Medications: Atorvastatin Calcium [Lipitor 40 mg Tablet] 40 mg PO QHS 05/05/17 Folic Acid [Folvite 1 mg Tablet] 1 mg PO DAILY 05/05/17 Gabapentin [Neurontin] 600 mg PO Q12 05/05/17 Hydrocodone Bit/Acetaminophen [Hydrocodon-Acetaminophen 5-325] 1 tab PO Q6HP PRN 05/05/17 Methotrexate Sodium [Methotrexate] 9 tab PO MO@1000 05/05/17 Omeprazole 20 mg PO DAILY 05/05/17 Oxycodone HCl [Oxy-Ir 5 mg Tablet] 10 mg PO Q8HP PRN 05/05/17 Oxycodone Myristate [Xtampza ER] 9 mg PO Q12 05/05/17 Pramipexole Di-HCl [Mirapex] 1 mg PO Q8 05/05/17 Acetaminophen [Tylenol 325 mg Tablet] 650 mg PO Q4HP PRN tablet 05/07/17 Aspirin [Aspirin 81 mg Chewable Tablet] 81 mg PO DAILY tab.chew 05/07/17 Ferrous Sulfate [Feosol 325 mg Tablet] 325 mg PO DAILY tablet 05/07/17 Fluticasone Propionate [Flonase Nasal [place] 50 Mcg/[place] 16 gm] 2 spray NASL DAILY 30 Days #1 spray.pump 05/07/17 Folic Acid [Folvite 1 mg Tablet] 1 mg PO DAILY tablet 05/07/17 Furosemide [Lasix 40 mg Tablet] 40 mg PO QAM 30 Days #30 tablet 05/07/17 Gabapentin [Neurontin 300 mg Capsule] 600 mg PO Q12 capsule 05/07/17 Ipratropium/Albuterol Sulfate [Duoneb 3 ml Ampul] 3 ml NEB RTQ6 10 Days #25 vial.neb 05/07/17 Levofloxacin [Levaquin 750 mg Tablet] 750 mg PO DAILY 5 Days #5 tablet 05/07/17 Prednisone [Deltasone 20 mg Tablet] 60 mg PO NOON 3 Days #9 tablet 05/07/17 Allergies/Adverse Reactions: No Known Allergies Allergy (Verified 05/10/17 12:27) Review of Systems Constitutional: PRESENT: as per HPI, fatigue, weakness. ABSENT: chills, fever(s ), headache(s), weight gain, weight loss Eyes: ABSENT: visual disturbances Ears: ABSENT: hearing changes Cardiovascular: ABSENT: chest pain, dyspnea on exertion, edema, orthropnea, palpitations Respiratory: PRESENT: as per HPI, dyspnea. ABSENT: cough, hemoptysis, sputum Gastrointestinal: PRESENT: constipation. ABSENT: abdominal pain, diarrhea, hematemesis, hematochezia, nausea, vomiting Genitourinary: ABSENT: dysuria, hematuria Musculoskeletal: ABSENT: joint swelling Integumentary: ABSENT: rash, wounds Neurological: ABSENT: abnormal gait, abnormal speech, confusion, dizziness, focal weakness, syncope Psychiatric: ABSENT: anxiety, depression, homidical ideation, suicidal ideation Endocrine: ABSENT: cold intolerance, heat intolerance, polydipsia, polyuria Hematologic/Lymphatic: ABSENT: easy bleeding, easy bruising Physical Exam Vital Signs: Temp Pulse Resp BP Pulse Ox 97.6 F 99 29 H 96/64 L 98 08/09/17 22:15 08/09/17 22:15 08/10/17 03:05 08/10/17 03:05 08/10/17 03:05 General appearance: PRESENT: disheveled, mild distress, morbidly obese, well- developed Head exam: PRESENT: atraumatic, normocephalic Eye exam: PRESENT: conjunctiva pink, EOMI, PERRLA. ABSENT: scleral icterus Ear exam: PRESENT: normal external ear exam Mouth exam: PRESENT: moist, tongue midline Neck exam: ABSENT: carotid bruit, JVD, lymphadenopathy, thyromegaly Respiratory exam: PRESENT: crackles, decreased breath sounds, prolonged expiratory phas, symmetrical. ABSENT: accessory muscle use, chest wall tenderness, rales, rhonchi, wheezes Cardiovascular exam: PRESENT: RRR. ABSENT: diastolic murmur, rubs, systolic murmur Pulses: PRESENT: normal dorsalis pedis pul Vascular exam: PRESENT: normal capillary refill GI/Abdominal exam: PRESENT: normal bowel sounds, soft. ABSENT: distended, guarding, mass, organolmegaly, rebound, tenderness Rectal exam: PRESENT: deferred Extremities exam: PRESENT: full ROM, +1 edema. ABSENT: calf tenderness, clubbing, pedal edema Neurological exam: PRESENT: alert, altered, awake, oriented to person, oriented to place, oriented to time, oriented to situation, CN II-XII grossly intact. ABSENT: motor sensory deficit Psychiatric exam: PRESENT: flat affect Skin exam: PRESENT: dry, intact, warm. ABSENT: cyanosis, rash Results Impressions: Chest X-Ray 08/09/17 22:26 IMPRESSION: No acute cardiopulmonary findings. Assessment & Plan - Diagnosis (1) Acute and chronic respiratory failure with hypercapnia Is this a current diagnosis for this admission?: Yes Plan: Complicated by chronic pain, BiPAP, supportive measures, opiate weaning, education, education, education (2) Bronchitis Is this a current diagnosis for this admission?: Yes Plan: Prednisone, albuterol and Atrovent, PEEP (3) COPD exacerbation Is this a current diagnosis for this admission?: Yes Plan: Albuterol and Atrovent, supplemental oxygen (4) Constipation Is this a current diagnosis for this admission?: Yes Plan: Lactulose and bowel regiment (5) Diastolic dysfunction with chronic heart failure Is this a current diagnosis for this admission?: Yes Plan: Compensated however high risk of fluid overload. - Time Time Spent: 50 to 70 Minutes - Inpatient Certification Medical Necessity: Need Close Monitoring Due to Risk of Patient Decompensation
[2017-08-10] MEDS: HEPARIN SOD (PORCINE) 5,000 UNIT/ML 1 ML SYRINGE SUBCUT SCH ×3 (05:03→21:47)
--- NOTE | 2017-08-10 07:18 | EKG REPORT ---
SEVERITY:- ABNORMAL ECG - SINUS RHYTHM INFERIOR INFARCT, AGE INDETERMINATE NONSPECIFIC T ABNORMALITIES, ANT-LAT LEADS : Confirmed by: Vimal Elizabeth MD 10-Aug-2017 07:18:12
[2017-08-10] MEDS: IPRATROPIUM/ALBUTEROL 0.5-2.5 MG/3 ML AMPUL NEB SCH ×2 (07:52→15:49)
[2017-08-10] MEDS: ASPIRIN 81 MG TABLET, CHEWABLE PO SCH (09:58)
[2017-08-10] MEDS: PREDNISONE 20 MG TABLET PO SCH ×2 (09:58→18:40)
[2017-08-10] MEDS: LANSOPRAZOLE 15 MG TAB.RAP.DR PO SCH (09:58)
[2017-08-10] MEDS: FERROUS SULFATE 325 MG TABLET PO SCH (09:58)
[2017-08-10] MEDS: FLUTICASONE NASAL SPRAY 50 MCG/SPRY 120 SPRAY/16 GM NASL SCH (09:59)
[2017-08-10] MEDS: CEFTRIAXONE SODIUM 1,000 MG in DEXTROSE 5%-WATER 50 ML IV SCH (09:59)
[2017-08-10] MEDS: GABAPENTIN 300 MG CAPSULE PO SCH ×2 (09:59→21:46)
[2017-08-10] MEDS ORDERED: CEFTRIAXONE 1 GM/D5W RTU 1 GM/50 ML RTUPB IV SCH (10:00)
[2017-08-10] MEDS: AZITHROMYCIN 500 MG in DEXTROSE 5%-WATER 250 ML IV SCH (11:41)
[2017-08-10] MEDS ORDERED: OXYCODONE-ACETAMINOPHEN 5-325 MG TABLET ONE (12:32)
[2017-08-10] MEDS: OXYCODONE-ACETAMINOPHEN 5-325 MG TABLET PO PRN (19:51)
[2017-08-10] MEDS ORDERED: ATORVASTATIN CALCIUM 40 MG TABLET PO SCH (22:00)
[2017-08-11] MEDS: IPRATROPIUM/ALBUTEROL 0.5-2.5 MG/3 ML AMPUL NEB SCH ×2 (00:32→08:36)
[2017-08-11 05:33] LABS: HEMATOCRIT 34.9 % (37.9-51.0); HEMOGLOBIN 11.4 g/dL (13.5-17.0); MEAN CORPUSCULAR HEMOGLOBIN 28.9 pg (27.0-33.4); MEAN CORPUSCULAR HGB CONC 32.7 g/dL (32.0-36.0); MEAN CORPUSCULAR VOLUME 89 fl (80-97); PLATELET COUNT 218 10^3/uL (150-450); RED BLOOD COUNT 3.94 10^6/uL (4.35-5.55); RED CELL DISTRIBUTION WIDTH 18.2 % (11.5-14.0)
[2017-08-11] MEDS: OXYCODONE-ACETAMINOPHEN 5-325 MG TABLET PO PRN (05:42)
[2017-08-11] MEDS: HEPARIN SOD (PORCINE) 5,000 UNIT/ML 1 ML SYRINGE SUBCUT SCH (05:42)
[2017-08-11 05:56] LABS: ANION GAP 10 (5-19); BLOOD UREA NITROGEN 29 mg/dL (7-20); CALCIUM 8.4 mg/dL (8.4-10.2); CARBON DIOXIDE 28 mmol/L (22-30); CHLORIDE 105 mmol/L (98-107); GLUCOSE 153 mg/dL (75-110); POTASSIUM 5.8 mmol/L (3.6-5.0); SODIUM 142.9 mmol/L (137-145)
[2017-08-11 07:41] LABS: ABSOLUTE LYMPHOCYTES# (MANUAL) 0.1 10^3/uL (0.5-4.7); ABSOLUTE MONOCYTES # (MANUAL) 0.4 10^3/uL (0.1-1.4); ABSOLUTE NEUTROPHILS# (MANUAL) 10.5 10^3/uL (1.7-8.2); BASOPHILS % (MANUAL) 0 % (0-2); EOSINOPHILS % (MANUAL) 0 % (0-6); LYMPHOCYTES % (MANUAL) 1 % (13-45); MONOCYTES % (MANUAL) 4 % (3-13); SEGMENTED NEUTROPHILS % (MAN) 95 % (42-78); TOTAL CELLS COUNTED 100
[2017-08-11 07:42] LABS: ANISOCYTOSIS 2+; OVALOCYTES 1+; PLATELET COMMENT ADEQUATE; POIKILOCYTOSIS 1+; POLYCHROMASIA SLIGHT
[2017-08-11 07:48] VITALS: BP 107/61
[2017-08-11] MEDS: ASPIRIN 81 MG TABLET, CHEWABLE PO SCH (09:30)
[2017-08-11] MEDS: FLUTICASONE NASAL SPRAY 50 MCG/SPRY 120 SPRAY/16 GM NASL SCH (09:30)
[2017-08-11] MEDS: GABAPENTIN 300 MG CAPSULE PO SCH (09:30)
[2017-08-11] MEDS: CEFTRIAXONE SODIUM 1,000 MG in DEXTROSE 5%-WATER 50 ML IV SCH (09:30)
[2017-08-11] MEDS: LANSOPRAZOLE 15 MG TAB.RAP.DR PO SCH (09:30)
[2017-08-11] MEDS: FERROUS SULFATE 325 MG TABLET PO SCH (09:30)
[2017-08-11] MEDS: PREDNISONE 20 MG TABLET PO SCH (09:30)
[2017-08-11] MEDS: AZITHROMYCIN 500 MG in DEXTROSE 5%-WATER 250 ML IV SCH (09:36)
--- NOTE | 2017-08-11 09:57 | PDOC DISCHARGE SUMMARY ---
General - Admit/Disc Date/PCP Admission Date/Primary Care Provider: 08/10/17 02:54 DEVORA VILLASEÑOR MD Discharge Date: 08/11/17 - Discharge Diagnosis (1) Acute and chronic respiratory failure with hypercapnia Is this a current diagnosis for this admission?: Yes (2) COPD exacerbation Is this a current diagnosis for this admission?: Yes (3) Diastolic dysfunction with chronic heart failure Is this a current diagnosis for this admission?: Yes - Additional Information Resuscitation Status: Full Code Home Medications: Atorvastatin Calcium [Lipitor 40 mg Tablet] 40 mg PO QHS 05/05/17 Methotrexate Sodium [Methotrexate] 8 tab PO MO@1000 05/05/17 Oxycodone HCl [Oxy-Ir 5 mg Tablet] 10 mg PO Q8HP PRN 05/05/17 Pramipexole Di-HCl [Mirapex] 1 mg PO Q8 05/05/17 Ferrous Sulfate [Feosol 325 mg Tablet] 325 mg PO DAILY tablet 05/07/17 Folic Acid [Folvite 1 mg Tablet] 1 mg PO DAILY tablet 05/07/17 Furosemide [Lasix 40 mg Tablet] 40 mg PO QAM 30 Days #30 tablet 05/07/17 Gabapentin [Neurontin 300 mg Capsule] 600 mg PO Q12 capsule 05/07/17 Albuterol Sulfate [Albuterol Sulfate 2.5mg/3 mL] 1 vial IH Q6H PRN 08/10/17 Albuterol Sulfate [Proair Hfa] 2 puff IH Q4HP PRN 08/10/17 Cholecalciferol (Vitamin D3) [Vitamin D3] 2,000 unit PO DAILY 08/10/17 Cyanocobalamin (Vitamin B-12) [B-12] 500 mcg PO BID 08/10/17 Diphenhydramine HCl [Benadryl Allergy] 25 mg PO QHS 08/10/17 Ketoconazole [Nizoral A-D] 120 ml TP ASDIR PRN 08/10/17 Meloxicam [Mobic] 15 mg PO DAILY 08/10/17 Nitroglycerin [Nitrostat 0.4 mg (1/150 Gr) Tabs 25/Bottle] 1 tab SL Q5MP PRN 07/23 Prednisone [Deltasone 5 mg Tablet] 5 mg PO BID 08/10/17 Valsartan [Diovan 80 mg Tablet] 80 mg PO DAILY 08/10/17 History of Present Illness History of Present Illness: SERGIO YAÑEZ is a 66 year old male with a past medical history of morbid obesity, obstructive sleep apnea, COPD, tobacco dependence, rheumatoid arthritis , opiate dependent chronic pain coronary artery disease status post stent and congestive heart failure with an ejection fraction of 35%. Patient was noted by to have increased lethargy following patient's use of narcotic pain medication. Suspecting problems with his BiPAP is brought to the emergency room for evaluation where he is found to be hypercapnic and hypotensive. He received several boluses of saline and placed on hospital BiPAP he has had some improvement with his breathing but remains lethargic and hypotensive. He receives a trial of Narcan 0.4 resulting in an immediate improvement of blood pressure to 116/84 pulse of 90 satting 98% on 50% FiO2 BiPAP. Nonetheless he is referred to the hospitalist for admission after an otherwise unremarkable workup. He denies chest pain Hospital Course Hospital Course: This is a 66 years old male patient presents with lethargy, hypertension and acute on chronic respiratory failure due to CO2 retention secondary to opiates. Patient has history of chronic back pain and chronic opioid use. After several boluses of normal saline and Narcan patient's hypotension and lethargy improved. This morning I seen patient sitting up in bed watching TV he is awake alert oriented is not in pain or any form of distress. His vital signs are stable and his labs are within normal limits. Patient is stable enough to be discharged. Physical Exam Vital Signs: Temp Pulse Resp BP Pulse Ox 97.8 F 82 18 107/61 96 08/11/17 07:47 08/11/17 08:36 08/11/17 08:36 08/11/17 07:47 08/11/17 08:36 Pulse Oximeter Continuous Start: 08/10/17 02: 41 Freq: RTQ4 Status: Complete Document 08/11/17 00:35 LRO (Rec: 08/11/17 01:12 LRO [email or web address]) Pulse Oximetry Assessment Oxygen Saturation (92-100) 96 Oxygen Delivery Method Room Air Equipment Usage Equipment in Use Continuous Pulse Oximeter 24 Hour Charge Charge Now Continuous SpO2 Machine # 11 Intake & Output 08/10/17 08/11/17 08/12/17 06:59 06:59 06:59 Intake Total 1430 Balance 1430 Weight 80 kg 79.1 kg General appearance: PRESENT: no acute distress Head exam: PRESENT: atraumatic Mouth exam: PRESENT: moist Neck exam: ABSENT: carotid bruit, JVD, lymphadenopathy, thyromegaly Respiratory exam: PRESENT: clear to auscultation maday. ABSENT: rales, rhonchi, wheezes Cardiovascular exam: PRESENT: RRR. ABSENT: diastolic murmur, rubs, systolic murmur GI/Abdominal exam: PRESENT: normal bowel sounds, soft. ABSENT: distended, guarding, mass, organolmegaly, rebound, tenderness Neurological exam: PRESENT: alert, awake, oriented to time, oriented to situation Psychiatric exam: PRESENT: normal mood Results Laboratory Results: 08/11/17 04:41 08/11/17 04:41 08/11/17 08/11/17 04:41 04:41 WBC 11.0 H RBC 3.94 L Hgb 11.4 L Hct 34.9 L MCV 89 MCH 28.9 MCHC 32.7 RDW 18.2 H Plt Count 218 Seg Neutrophils % Not Reportable Lymphocytes % Not Reportable Monocytes % Not Reportable Eosinophils % Not Reportable Basophils % Not Reportable Absolute Neutrophils Not Reportable Absolute Lymphocytes Not Reportable Absolute Monocytes Not Reportable Absolute Eosinophils Not Reportable Absolute Basophils Not Reportable Sodium 142.9 Potassium 5.8 H Chloride 105 Carbon Dioxide 28 Anion Gap 10 BUN 29 H Creatinine 0.75 Est GFR ( Amer) > 60 Est GFR (Non-Af Amer) > 60 Glucose 153 H Calcium 8.4 Impressions: Chest X-Ray 08/09/17 22:26 IMPRESSION: No acute cardiopulmonary findings. Qualifiers - * PATIENT BEING DISCHARGED WITH ANY OF THE FOLLOWING DIAGNOSIS: Heart Failure VTE patient discharged on overlapping Therapy?: No Reason(s) for not prescribing Overlap Therapy:: Not indicated Stroke Pt being discharged on Anti-thrombolytic therapy?: No Reason(s) for not prescribing Anti-thrombolytic therapy:: Not indicated Stroke Pt being discharged on Anti-coagulation therapy?: No Reason(s) for not prescribing Anti-coagulation therapy:: Not indicated Stroke Pt being discharged on Statins?: No Reason(s) for not prescribing Statins therapy:: Not indicated AL Pt being discharged on Aspirin therapy?: No Reason(s) for not prescribing Aspirin therapy:: Not indicated AL Pt being discharged on Statins?: No Reason(s) for not prescribing Statin therapy:: Not indicated AL Pt discharged ACEI/ARBS?: No Reason(s) for not prescribing ACEI/ARBS:: Not indicated HF Pt being discharged on ACEI for LVEF less than 40%?: No Reason(s) for not prescribing ACEI:: Not indicated HF Pt being discharged on ARBS for LVEF less than 40%?: No Reason(s) for not prescribing ARBS:: Not indicated HF Pt with Afib discharged with Warfarin?: No Reason(s) for not prescribing Warfarin:: Not indicated HF Pt discharged on evidence-based Beta Madelin:: No Reason(s) for not prescribing evidence-based Beta Madelin:: Not indicated
== END 2017-08-11 10:45 | disposition home or self-care (01) | DRG 189 ==
LOC: ER 22:07 → EH 08-10 02:54 → 4N 08-10 04:30
PROVIDERS: ADMIT Internal Medicine; ATTEND Internal Medicine
PROC: 5A09457 Assistance with Respiratory Ventilation, 24-96 Consecutive Hours, Continuous Positive Airway Pressure (ICD-10-PCS; principal; 2017-08-09)
PROC: 3E0F73Z Introduction of Anti-inflammatory into Respiratory Tract, Via Natural or Artificial Opening (ICD-10-PCS; 2017-08-11)
DX: J96.22 Acute and chronic respiratory failure with hypercapnia (principal); J44.1 Chronic obstructive pulmonary disease with (acute) exacerbation; I50.32 Chronic diastolic (congestive) heart failure; F11.20 Opioid dependence, uncomplicated; E66.01 Morbid (severe) obesity due to excess calories; G47.33 Obstructive sleep apnea (adult) (pediatric); Z68.31 Body mass index [BMI] 31.0-31.9, adult; F17.210 Nicotine dependence, cigarettes, uncomplicated; M06.9 Rheumatoid arthritis, unspecified; I25.10 Atherosclerotic heart disease of native coronary artery without angina pectoris; I11.0 Hypertensive heart disease with heart failure; K59.00 Constipation, unspecified; I25.2 Old myocardial infarction; Z79.899 Other long term (current) drug therapy; Z95.5 Presence of coronary angioplasty implant and graft; Z86.718 Personal history of other venous thrombosis and embolism; Z86.711 Personal history of pulmonary embolism; Z90.49 Acquired absence of other specified parts of digestive tract; Z82.61 Family history of arthritis; Z83.3 Family history of diabetes mellitus; Z84.89 Family history of other specified conditions
CPT/HCPCS: 36415; 71045; 80048; 80053; 82803; 85025; 93005; 93010; 94640; 94660; 94667; 94762; 94799; 96361; 96374; 99291; J0456; J0696; J1644; J2310; J2930; J3490; J7040; J7060; J7512; J7620

== ENCOUNTER 2017-09-13 18:26 | Observation (INO) | payer MEDICARE, BC ==
[2017-09-13] MEDS ORDERED: IPRATROPIUM/ALBUTEROL 0.5-2.5 MG/3 ML AMPUL NEB ONE (21:48)
[2017-09-13] MEDS ORDERED: METHYLPREDNISOLONE INJ 125 MG/2 ML SDV IV ONE (21:48)
--- NOTE | 2017-09-13 22:06 | ER Document Report ---
ED Medical Screen (RME) - General Chief Complaint: Breathing Difficulty Stated Complaint: BLOOD PRESSURE ISSUES Time Seen by Provider: 09/13/17 22:02 Mode of Arrival: Ambulatory Information source: Patient, Relative Notes: Patient is a 66-year-old male who presents to the emergency department with chief complaint of low blood pressure and low oxygen. Patient does have a history of COPD but denies any other pulmonary history. Patient's reports patient's blood pressure at home was 91/53, she reports the blood pressure is usually 140/60. She also reports that patient's oxygen level at home has been in the low 80s intermittently throughout the day. Patient denies any specific symptoms other than shortness of breath and states "I just do not feel well". Patient denies any chest pain. Patient does report back pain however he states this is chronic for him and is not changed from his baseline. Patient reports that he has a BiPAP with oxygen at home that he uses at night however he has been on it all day today and all day yesterday. Patient and spouse deny any recent sick contacts. Patient denies any nausea, vomiting, diarrhea or fever. Denies any urinary symptoms. Exam: Expiratory wheezing noted bilaterally. Patient dyspneic with any exertion. I have greeted and performed a rapid initial assessment of this patient. A comprehensive ED assessment and evaluation of the patient, analysis of test results and completion of the medical decision making process will be conducted by additional ED providers. Dictation of this chart was performed using voice recognition software; therefore, there may be some unintended grammatical errors. TRAVEL OUTSIDE OF THE [place] IN LAST 30 DAYS: No - Related Data Allergies/Adverse Reactions: No Known Allergies Allergy (Verified 09/13/17 18:27) Past Medical History - Social History Chew tobacco use (# tins/day): No Frequency of alcohol use: None Drug Abuse: None - Past Medical History Cardiac Medical History: Reports: Hx Congestive Heart Failure, Hx DVT, Hx Heart Attack - and stent, Hx Hypercholesterolemia, Hx Hypertension, Hx Pulmonary Embolism Pulmonary Medical History: Reports: Hx Bronchitis, Hx COPD, Hx Sleep Apnea Denies: Hx Asthma, Hx Pneumonia, Hx Tuberculosis Neurological Medical History: Denies: Hx Seizures Renal/ Medical History: Denies: Hx Benign Prostatic Hyperplasia, Hx End Stage Renal Disease, Hx Kidney Stones, Hx Peritoneal Dialysis GI Medical History: Denies: Hx Cirrhosis, Hx Gastroesophageal Reflux Disease, Hx Ulcer Musculoskeltal Medical History: Reports Hx Arthritis, Denies Hx Multiple Sclerosis Psychiatric Medical History: Denies: Hx Bipolar Disorder, Hx Depression, Hx Schizophrenia Past Surgical History: Reports: Hx Cholecystectomy, Hx Orthopedic Surgery - carpel tunnel,neck, ORIF right wrist - Immunizations Immunizations up to date: Yes Hx Diphtheria, Pertussis, Tetanus Vaccination: Yes History of Influenza Vaccine for 11/2016 - 04/2017 Season: Yes Influenza Administration Date for 11/2016 - 04/2017 Season: 11/05/16 Physical Exam - Vital signs Vitals: Temp Pulse Resp BP Pulse Ox 98.5 F 80 18 104/53 L 92 09/13/17 18:32 09/13/17 18:32 09/13/17 18:32 09/13/17 18:32 09/13/17 18:32 Course - Vital Signs Vital signs: Temp Pulse Resp BP Pulse Ox 98.5 F 80 18 104/53 L 92 09/13/17 18:32 09/13/17 18:32 09/13/17 18:32 09/13/17 18:32 09/13/17 18:32 Doctor's Discharge - Discharge Referrals: DEVORA VILLASEÑOR MD [Primary Care Provider] - Follow up as needed
[2017-09-13 22:30] LABS: ABSOLUTE EOSINOPHILS # (AUTO) 0.3 10^3/uL (0.0-0.6); ABSOLUTE LYMPHOCYTES (AUTO) 1.2 10^3/uL (0.5-4.7); ABSOLUTE NEUT (AUTO) 6.4 10^3/uL (1.7-8.2); BASOPHILS % (AUTO) 0.5 % (0-2); EOSINOPHILS % (AUTO) 3.2 % (0-6); HEMATOCRIT 37.7 % (37.9-51.0); HEMOGLOBIN 12.5 g/dL (13.5-17.0); LYMPHOCYTES % (AUTO) 13.3 % (13-45); MEAN CORPUSCULAR HEMOGLOBIN 29.7 pg (27.0-33.4); MEAN CORPUSCULAR HGB CONC 33.1 g/dL (32.0-36.0); MEAN CORPUSCULAR VOLUME 90 fl (80-97); PLATELET COUNT 215 10^3/uL (150-450); RED CELL DISTRIBUTION WIDTH 17.7 % (11.5-14.0); TOTAL CELLS COUNTED % (AUTO) 100 %; WHITE BLOOD COUNT 8.9 10^3/uL (4.0-10.5)
[2017-09-13] MEDS ORDERED: MAGNESIUM SULFATE/D5W 1 GM/100 ML RTUPB IV ONE (22:48)
[2017-09-13 22:49] LABS: ALANINE AMINOTRANSFERASE 49 U/L (21-72); ALBUMIN 3.9 g/dL (3.5-5.0); ALKALINE PHOSPHATASE 75 U/L (38-126); ANION GAP 12 (5-19); ASPARTATE AMINO TRANSFERASE 40 U/L (17-59); BILIRUBIN,DIRECT 0.3 mg/dL (0.0-0.4); BILIRUBIN,TOTAL 0.3 mg/dL (0.2-1.3); BLOOD UREA NITROGEN 32 mg/dL (7-20); CALCIUM 8.7 mg/dL (8.4-10.2); CARBON DIOXIDE 32 mmol/L (22-30); CHLORIDE 98 mmol/L (98-107); CREATINE KINASE 299 U/L (55-170); GLUCOSE 99 mg/dL (75-110); POTASSIUM 4.6 mmol/L (3.6-5.0); SODIUM 141.9 mmol/L (137-145); TOTAL PROTEIN 6.9 g/dL (6.3-8.2)
[2017-09-13 22:58] LABS: CREATINE KINASE MB 5.68 ng/mL (<4.55); NT PRO BNP 182 pg/mL (5-900)
[2017-09-13 23:00] LABS: TROPONIN I < 0.012 ng/mL
--- NOTE | 2017-09-13 23:25 | RADIOLOGY REPORT (SQ) ---
EXAM DESCRIPTION: XR CHEST 1 VIEW COMPLETED DATE/TME: 09/13/2017 21:48 CLINICAL HISTORY: difficulty breathing COMPARISON: 08/09/2017 FINDINGS: Single frontal view of the chest. The cardiomediastinal silhouette has normal size and contour. No consolidation, pneumothorax, or pleural effusion. Linear right basilar opacity likely representing discoid atelectasis. No displaced rib fractures identified. Leads overlie the chest. Upper abdominal soft tissues are unremarkable. IMPRESSION: 1. No acute pulmonary process identified.
[2017-09-13] MEDS ORDERED: NORMAL SALINE 1000 ML 1,000 ML IV ONE (23:38)
[2017-09-13] MEDS: ALBUTEROL SULFATE 0.083% NEB 2.5 MG/3 ML AMPUL NEB SCH (23:58)
--- NOTE | 2017-09-14 00:10 | ER Document Report ---
ED General - General Chief Complaint: Breathing Difficulty Stated Complaint: BLOOD PRESSURE ISSUES Time Seen by Provider: 09/13/17 22:02 Mode of Arrival: Ambulatory TRAVEL OUTSIDE OF THE [place] IN LAST 30 DAYS: No - HPI Patient complains to provider of: Difficulty breathing Notes: Patient coming in today for difficulty breathing. Patient states also feeling generally fatigued. Patient denies any pain in his chest abdomen and nausea vomiting diarrhea fevers chills. Patient states he does have a breathing machine at home has been on it all night most only wears his breathing machine at night states it is not CPAP. Patient denies any recent travel denies any recent antibiotics. Patient otherwise is resting comfortably upon my evaluation. Patient for member at bedside states blood pressure also little earlier this morning. Patient states he has been drinking plenty of fluids and avoiding the heat. - Related Data Allergies/Adverse Reactions: No Known Allergies Allergy (Verified 09/13/17 18:27) Past Medical History - General Information source: Patient, Relative - Social History Smoking Status: Unknown if Ever Smoked Chew tobacco use (# tins/day): No Frequency of alcohol use: None Drug Abuse: None Family History: Arthritis, DM, Other Patient has suicidal ideation: No Patient has homicidal ideation: No - Past Medical History Cardiac Medical History: Reports: Hx Congestive Heart Failure, Hx DVT, Hx Heart Attack - and stent, Hx Hypercholesterolemia, Hx Hypertension, Hx Pulmonary Embolism Pulmonary Medical History: Reports: Hx Bronchitis, Hx COPD, Hx Sleep Apnea Denies: Hx Asthma, Hx Pneumonia, Hx Tuberculosis Neurological Medical History: Denies: Hx Seizures Renal/ Medical History: Denies: Hx Benign Prostatic Hyperplasia, Hx End Stage Renal Disease, Hx Kidney Stones, Hx Peritoneal Dialysis GI Medical History: Denies: Hx Cirrhosis, Hx Gastroesophageal Reflux Disease, Hx Ulcer Musculoskeletal Medical History: Reports Hx Arthritis, Denies Hx Multiple Sclerosis Psychiatric Medical History: Denies: Hx Bipolar Disorder, Hx Depression, Hx Schizophrenia Past Surgical History: Reports: Hx Cholecystectomy, Hx Orthopedic Surgery - carpel tunnel,neck, ORIF right wrist - Immunizations Immunizations up to date: Yes Hx Diphtheria, Pertussis, Tetanus Vaccination: Yes Hx Pneumococcal Vaccination: 02/05/13 Review of Systems - Review of Systems Constitutional: No symptoms reported EENT: No symptoms reported Cardiovascular: No symptoms reported Respiratory: Short of breath Gastrointestinal: No symptoms reported Genitourinary: No symptoms reported Male Genitourinary: No symptoms reported Musculoskeletal: No symptoms reported Skin: No symptoms reported Hematologic/Lymphatic: No symptoms reported Neurological/Psychological: No symptoms reported -: Yes All other systems reviewed and negative Physical Exam - Vital signs Vitals: Temp Pulse Resp BP Pulse Ox 98.5 F 80 18 104/53 L 92 09/13/17 18:32 09/13/17 18:32 09/13/17 18:32 09/13/17 18:32 09/13/17 18:32 Interpretation: Normal - General General appearance: Appears well, Alert - HEENT Head: Normocephalic, Atraumatic Eyes: Normal Pupils: PERRL - Respiratory Respiratory status: No respiratory distress Chest status: Nontender Breath sounds: Wheezing Chest palpation: Normal - Cardiovascular Rhythm: Regular Heart sounds: Normal auscultation Murmur: No - Abdominal Inspection: Normal Distension: No distension Bowel sounds: Normal Tenderness: Nontender Organomegaly: No organomegaly - Back Back: Normal, Nontender - Extremities General upper extremity: Normal inspection, Nontender, Normal color, Normal ROM , Normal temperature General lower extremity: Normal inspection, Nontender, Normal color, Normal ROM , Normal temperature, Normal weight bearing. No: Shanta's sign - Neurological Neuro grossly intact: Yes Cognition: Normal Orientation: AAOx4 Betsy Coma Scale Eye Opening: Spontaneous [place] Coma Scale Verbal: Oriented [place] Coma Scale Motor: Obeys Commands [place] Coma Scale Total: 15 Speech: Normal Motor strength normal: LUE, RUE, LLE, RLE Sensory: Normal - Psychological Associated symptoms: Normal affect, Normal mood - Skin Skin Temperature: Warm Skin Moisture: Dry Skin Color: Normal Course - Re-evaluation Re-evalutation: 09/14/17 01:20 Laboratory studies this slight hypercapnia with very minimal acidosis however patient continues to be sleepy and tired. Every time we do go in to reevaluate patient with you at the with the patient. Concern for COPD exacerbation with hypercapnia. Patient will be placed on BiPAP we will discussed patient's case with the hospitalist for admission for further observation. - Vital Signs Vital signs: Temp Pulse Resp BP Pulse Ox 98.5 F 80 18 104/53 L 92 09/13/17 18:32 09/13/17 18:32 09/13/17 18:32 09/13/17 18:32 09/13/17 18:32 - Laboratory Result Diagrams: 09/13/17 22:10 09/13/17 22:10 Laboratory results interpreted by me: 09/13/17 09/13/17 09/13/17 22:10 22:10 22:10 RBC 4.20 L Hgb 12.5 L Hct 37.7 L RDW 17.7 H Carbonic Acid ABG pH ABG pCO2 ABG pO2 ABG HCO3 ABG Total CO2 ABG O2 Saturation Carbon Dioxide 32 H BUN 32 H Creatine Kinase 299 H CK-MB (CK-2) 5.68 H 09/14/17 00:35 RBC Hgb Hct RDW Carbonic Acid 1.94 H ABG pH 7.32 L ABG pCO2 64.4 H ABG pO2 74.9 L ABG HCO3 32.1 H ABG Total CO2 34.1 H ABG O2 Saturation 93.5 L Carbon Dioxide BUN Creatine Kinase CK-MB (CK-2) Critical Care Note - Critical Care Note Total time excluding time spent on procedures (mins): 35 Comments: Transplant patient with COPD exacerbation and hypercapnia. Managed BiPAP Discharge - Discharge Clinical Impression: Full code status, COPD exacerbation, Acute and chronic respiratory failure with hypercapnia Condition: Good Disposition: ADMITTED INPATIENT Admitting Provider: Hospitalist - [facility] Admitted: Telemetry Referrals: DEVORA VILLASEÑOR MD [NO LOCAL MD] - Follow up as needed
[2017-09-14] MEDS: ALBUTEROL SULFATE 0.083% NEB 2.5 MG/3 ML AMPUL NEB SCH (00:32)
[2017-09-14 00:50] LABS: ARTERIAL BLOOD BASE EXCESS 4.4 mmol/L; ARTERIAL BLOOD H2CO3 1.94 mmol/L (1.05-1.35); ARTERIAL BLOOD HCO3 32.1 mmol/L (20-26); ARTERIAL BLOOD O2 SATURATION 93.5 % (94-98); ARTERIAL BLOOD PCO2 64.4 mmHg (35-45); ARTERIAL BLOOD PH 7.32 (7.35-7.45); ARTERIAL BLOOD PO2 74.9 mmHg (80-100); ARTERIAL BLOOD TOTAL CO2 34.1 mmol/L (23-27)
[2017-09-14 00:53] LABS: ARTERIAL BLOOD FIO2 28%
[2017-09-14 02:12] LABS: APPEARANCE,URINE CLEAR; BILIRUBIN,URINE NEGATIVE (NEGATIVE); COLOR,URINE YELLOW; GLUCOSE, URINE NEGATIVE (NEGATIVE); KETONES,URINE NEGATIVE (NEGATIVE); LEUKOCYTE ESTERASE,URINE NEGATIVE (NEGATIVE); NITRITE,URINE NEGATIVE (NEGATIVE); PROTEIN,URINE NEGATIVE (NEGATIVE); URINE SPECIFIC GRAVITY 1.017; UROBILINOGEN,URINE NEGATIVE mg/dL (<2.0)
[2017-09-14] MEDS ORDERED: ACETAMINOPHEN 325 MG TABLET PO PRN (03:03)
[2017-09-14] MEDS ORDERED: IPRATROPIUM/ALBUTEROL 0.5-2.5 MG/3 ML AMPUL NEB PRN (03:03)
[2017-09-14] MEDS ORDERED: MAG HYDROX/AL HYDROX/SIMETH SUSP 30 ML UDCUP PO PRN (03:03)
[2017-09-14] MEDS ORDERED: PROMETHAZINE HCL 25 MG TABLET PO PRN (03:03)
--- NOTE | 2017-09-14 03:34 | PDOC H&P ---
History of Present Illness Admission Date/PCP: 09/14/17 02:21 Brett Crum Patient complains of: Lethargy History of Present Illness: SERGIO YAÑEZ is a 66 year old male chronic respiratory failure on 3 L oxygen at night and trilogy, tells me he woke up yesterday at 7:30 AM, at about 9 AM he was feeling with progressive shortness of breath, weak, he was unable to keep himself awake as was falling asleep easily, he decided to use his trilogy and come to the emergency department. Apparently his oxycodone has been increased from 10-15 mg 1 week ago, patient states that he did not take more than 1 before his symptoms started. Been wheezing a little bit more than his usual, denies cough, phlegm fever, chills, nausea, vomiting, chest pain, abdominal pain. Family member states that his blood pressure has been a little bit low in the morning. In the emergency department ABG shows hypercapnia 7.32/64/74 26%. Was not hypoxic upon admission. By the time I went to see him he was at his baseline respiratory status, denies more shortness of breath than his usual. Patient was already on BiPAP in the ED and was discontinued for him to eat. Past Medical History Cardiac Medical History: Reports: Congestive Heart Failure, DVT, Myocardial Infarction - and stent, Hyperlipidema, Hypertension, Pulmonary Embolism Pulmonary Medical History: Reports: Bronchitis, Chronic Obstructive Pulmonary Disease (COPD), Sleep Apnea Denies: Asthma, Pneumonia, Tuberculosis Neurological Medical History: Denies: Seizures Renal/ Medical History: Denies: End Stage Renal Disease GI Medical History: Denies: Cirrhosis, Gastroesophageal Reflux Disease Musculoskeltal Medical History: Reports: Arthritis Psychiatric Medical History: Denies: Bipolar Disorder, Depression Hematology: Denies: Anemia, Bleeding Tendencies Past Surgical History Past Surgical History: Reports: Cholecystectomy, Orthopedic Surgery - carpel tunnel,neck, ORIF right wrist Social History Smoking Status: Unknown if Ever Smoked Frequency of Alcohol Use: Occasional Hx Recreational Drug Use: No Drugs: None Hx Prescription Drug Abuse: No Family History Family History: Arthritis, DM, Other Parental Family History Reviewed: No Children Family History Reviewed: NA Sibling(s) Family History Reviewed.: NA Medication/Allergy Home Medications: Atorvastatin Calcium [Lipitor 40 mg Tablet] 40 mg PO QHS 05/05/17 Methotrexate Sodium [Methotrexate] 8 tab PO MO@1000 05/05/17 Oxycodone HCl [Oxy-Ir 5 mg Tablet] 10 mg PO Q8HP PRN 05/05/17 Pramipexole Di-HCl [Mirapex] 1 mg PO Q8 05/05/17 Ferrous Sulfate [Feosol 325 mg Tablet] 325 mg PO DAILY tablet 05/07/17 Folic Acid [Folvite 1 mg Tablet] 1 mg PO DAILY tablet 05/07/17 Furosemide [Lasix 40 mg Tablet] 40 mg PO QAM 30 Days #30 tablet 05/07/17 Gabapentin [Neurontin 300 mg Capsule] 600 mg PO Q12 capsule 05/07/17 Albuterol Sulfate [Albuterol Sulfate 2.5mg/3 mL] 1 vial IH Q6H PRN 08/10/17 Albuterol Sulfate [Proair HFA] 2 puff IH Q4HP PRN 08/10/17 Cholecalciferol (Vitamin D3) [Vitamin D3] 2,000 unit PO DAILY 08/10/17 Cyanocobalamin (Vitamin B-12) [B-12] 500 mcg PO BID 08/10/17 Diphenhydramine HCl [Benadryl Allergy] 25 mg PO QHS 08/10/17 Ketoconazole [Nizoral A-D] 120 ml TP ASDIR PRN 08/10/17 Meloxicam [Mobic] 15 mg PO DAILY 08/10/17 Nitroglycerin [Nitrostat 0.4 mg (1/150 Gr) Tabs 25/Bottle] 1 tab SL Q5MP PRN 07/23 Prednisone [Deltasone 5 mg Tablet] 5 mg PO BID 08/10/17 Valsartan [Diovan 80 mg Tablet] 80 mg PO DAILY 08/10/17 Azithromycin [Zithromax] 500 mg PO DAILY #7 tablet 08/11/17 Allergies/Adverse Reactions: No Known Allergies Allergy (Verified 09/13/17 18:27) Review of Systems Review of Systems: As outlined in the HPI, others negative Physical Exam Vital Signs: Temp Pulse Resp BP Pulse Ox 98.5 F 80 17 102/59 L 97 09/13/17 18:32 09/13/17 18:32 09/14/17 02:01 09/14/17 02:01 09/14/17 01:01 Additional comments: General appearance: Decondition, alert and cooperative, and appears to be in no acute distress Head: Normocephalic Eyes: PEERL, EOMI, vision is grossly intact. Ears: External auditory canal and tympanic membranes clear, hearing aids in the right ear. Nose: No nasal discharge. Throat: Oral cavity and pharynx normal. No inflammation, swelling, exudate or lesions. Neck: Neck supple, nontender without lymphadenopathy, masses or thyromegaly. Cardiac: Normal S1 and S2. No S3, S4 or murmurs. Rhythm is regular. There is no peripheral edema, cyanosis or pallor. Extremities are warm and well perfused. Capillary refill is less than 2 seconds. No carotid bruits. Lungs: Bilateral decreased breath sounds with coarse bilateral rales, rhonchi rhonchi, mild expiratory wheezing. Not using accessory muscles. Abdomen: Positive bowel sounds. Soft. Nondistended, nontender. No guarding or rebound. No masses. Extremities: No significant deformity or joint abnormality. Peripheral pulses intact. No varicosities. Neurological: Cranial nerves II through XII grossly intact. Strength and sensation symmetric and intact throughout. Reflexes 2+ throughout. Skin: Skin normal color, texture and turgor with no lesions or eruptions, warm and dry. Psychiatric: The mental examination revealed the patient was oriented to person , place, and time. The patient was able to demonstrate good judgment on recent , without hallucinations, abnormal affect or abnormal behaviors. Results Laboratory Results: 05/04/17 09/13/17 09/13/17 22:45 22:10 22:10 WBC 8.9 RBC 4.20 L Hgb 12.5 L Hct 37.7 L MCV 90 MCH 29.7 MCHC 33.1 RDW 17.7 H Plt Count 215 Seg Neutrophils % 72.0 Lymphocytes % 13.3 Monocytes % 11.0 Eosinophils % 3.2 Basophils % 0.5 Absolute Neutrophils 6.4 Absolute Lymphocytes 1.2 Absolute Monocytes 1.0 Absolute Eosinophils 0.3 Absolute Basophils 0.0 D-Dimer 1.94 H Carbonic Acid HCO3/H2CO3 Ratio ABG pH ABG pCO2 ABG pO2 ABG HCO3 ABG Total CO2 ABG O2 Saturation ABG Base Excess FiO2 Sodium 141.9 Potassium 4.6 Chloride 98 Carbon Dioxide 32 H Anion Gap 12 BUN 32 H Creatinine 1.17 Est GFR ( Amer) > 60 Est GFR (Non-Af Amer) > 60 Glucose 99 Calcium 8.7 Total Bilirubin 0.3 Direct Bilirubin 0.3 AST 40 ALT 49 Alkaline Phosphatase 75 Creatine Kinase 299 H Total Protein 6.9 Albumin 3.9 Urine Color Urine Appearance Urine pH Ur Specific Prosper Urine Protein Urine Glucose (UA) Urine Ketones Urine Blood Urine Nitrite Urine Bilirubin Urine Urobilinogen Ur Leukocyte Esterase Urine WBC (Auto) U Hyaline Cast (Auto) Squamous Epi Cells Auto Urine Mucus (Auto) Urine Ascorbic Acid 09/14/17 09/14/17 00:35 01:30 WBC RBC Hgb Hct MCV MCH MCHC RDW Plt Count Seg Neutrophils % Lymphocytes % Monocytes % Eosinophils % Basophils % Absolute Neutrophils Absolute Lymphocytes Absolute Monocytes Absolute Eosinophils Absolute Basophils D-Dimer Carbonic Acid 1.94 H HCO3/H2CO3 Ratio 16:1 ABG pH 7.32 L ABG pCO2 64.4 H ABG pO2 74.9 L ABG HCO3 32.1 H ABG Total CO2 34.1 H ABG O2 Saturation 93.5 L ABG Base Excess 4.4 FiO2 28% Sodium Potassium Chloride Carbon Dioxide Anion Gap BUN Creatinine Est GFR ( Amer) Est GFR (Non-Af Amer) Glucose Calcium Total Bilirubin Direct Bilirubin AST ALT Alkaline Phosphatase Creatine Kinase Total Protein Albumin Urine Color YELLOW Urine Appearance CLEAR Urine pH 5.0 Ur Specific Prosper 1.017 Urine Protein NEGATIVE Urine Glucose (UA) NEGATIVE Urine Ketones NEGATIVE Urine Blood NEGATIVE Urine Nitrite NEGATIVE Urine Bilirubin NEGATIVE Urine Urobilinogen NEGATIVE Ur Leukocyte Esterase NEGATIVE Urine WBC (Auto) 0 U Hyaline Cast (Auto) 3 Squamous Epi Cells Auto <1 Urine Mucus (Auto) RARE Urine Ascorbic Acid NEGATIVE Impressions: Chest X-Ray 09/13/17 21:48 IMPRESSION: 1. No acute pulmonary process identified. Assessment & Plan - Diagnosis (1) Acute and chronic respiratory failure with hypercapnia Is this a current diagnosis for this admission?: Yes Plan: Patient became lethargic, unable to wake up, I feel that is secondary to the use of opioids, but the time I evaluated him he was back to his baseline. We will continue with BiPAP at night if necessary, otherwise oxygen via nasal cannula at 3 L as he is at home. Repeat ABG. Nebulizer treatments as needed. Do not feel that steroids are necessary. Likely will be under observation and discharge later on today. Chest x-ray negative. (2) COPD (chronic obstructive pulmonary disease) Is this a current diagnosis for this admission?: Yes Plan: Probably very mild exacerbation that can improved with nebulizer treatments, DuoNeb as needed. Continue with oxygen protocol via nasal cannula. Continue home bronchodilators. (3) Diastolic CHF, chronic Is this a current diagnosis for this admission?: Yes Plan: Does not seem be on acute exacerbation. Continue home Lasix. (4) Chronic back pain Is this a current diagnosis for this admission?: Yes Plan: On chronic opioids, his oxycodone has been increased from 10-15 mg. - Time Time Spent: 30 to 50 Minutes
--- NOTE | 2017-09-14 09:58 | EKG REPORT ---
SEVERITY:- ABNORMAL ECG - SINUS RHYTHM PROBABLE INFERIOR INFARCT, AGE INDETERMINATE NONSPECIFIC T ABNORMALITIES, ANT-LAT LEADS : Confirmed by: Sophia Lemus MD 14-Sep-2017 09:58:05
[2017-09-14] MEDS ORDERED: ENOXAPARIN SODIUM INJ 40 MG/0.4 ML DISP.SYRIN SUBCUT SCH (10:00)
[2017-09-14 10:51] VITALS: BP 130/52
[2017-09-14 12:36] LABS: ARTERIAL BLOOD BASE EXCESS 0.8 mmol/L; ARTERIAL BLOOD H2CO3 1.58 mmol/L (1.05-1.35); ARTERIAL BLOOD HCO3 27.4 mmol/L (20-26); ARTERIAL BLOOD O2 SATURATION 93.5 % (94-98); ARTERIAL BLOOD PCO2 52.5 mmHg (35-45); ARTERIAL BLOOD PH 7.34 (7.35-7.45); ARTERIAL BLOOD PO2 72.6 mmHg (80-100)
[2017-09-14 12:37] LABS: ARTERIAL BLOOD FIO2 2L
--- NOTE | 2017-09-14 16:48 | PDOC DISCHARGE SUMMARY ---
General - Admit/Disc Date/PCP Admission Date/Primary Care Provider: 09/14/17 02:21 Discharge Date: 09/14/17 - Discharge Diagnosis (1) Acute and chronic respiratory failure with hypercapnia Is this a current diagnosis for this admission?: Yes (2) COPD (chronic obstructive pulmonary disease) Is this a current diagnosis for this admission?: Yes (3) Chronic back pain Is this a current diagnosis for this admission?: Yes (4) Coronary artery disease Is this a current diagnosis for this admission?: Yes (5) Diastolic CHF, chronic Is this a current diagnosis for this admission?: Yes Summary: Is euvolemic and there is no evidence of acute decompensation - Additional Information Discharge Diet: Cardiac Discharge Activity: Activity As Tolerated Home Medications: Albuterol Sulfate [Albuterol Sulfate 2.5mg/3 mL] 2.5 mg NEB RTQ6HP PRN 09/14/17 Albuterol Sulfate [Proair HFA Inhalation Aerosol 8.5 gm MDI] 2 puff IH Q4HP PRN 09/14/17 Atorvastatin Calcium [Lipitor 40 mg Tablet] 40 mg PO QHS 09/14/17 Gabapentin [Neurontin] 600 mg PO Q12 09/14/17 Ketoconazole [Nizoral 2% Shampoo 120 ml Bottle] 1 applic TOP MOWEFR 09/14/17 Losartan Potassium [Cozaar 50 mg Tablet] 50 mg PO DAILY 09/14/17 Meloxicam [Mobic] 15 mg PO DAILY 09/14/17 Methotrexate Sodium [Methotrexate] 20 mg PO SA 09/14/17 Oxycodone HCl 15 mg PO Q6HP PRN 09/14/17 Pramipexole Di-HCl [Mirapex] 1 mg PO TID 09/14/17 Prednisone [Deltasone 5 mg Tablet] 5 mg PO BID 09/14/17 Valsartan [Diovan 80 mg Tablet] 80 mg PO DAILY 09/14/17 History of Present Illness History of Present Illness: SERGIO YAÑEZ is a 66 year old male chronic respiratory failure on 3 L oxygen at night and trilogy, tells me he woke up yesterday at 7:30 AM, at about 9 AM he was feeling with progressive shortness of breath, weak, he was unable to keep himself awake as was falling asleep easily, he decided to use his trilogy and come to the emergency department. Apparently his oxycodone has been increased from 10-15 mg 1 week ago, patient states that he did not take more than 1 before his symptoms started. Been wheezing a little bit more than his usual, denies cough, phlegm fever, chills, nausea, vomiting, chest pain, abdominal pain. Family member states that his blood pressure has been a little bit low in the morning. In the emergency department ABG shows hypercapnia 7.32/64/74 26%. Was not hypoxic upon admission. By the time I went to see him he was at his baseline respiratory status, denies more shortness of breath than his usual. Patient was already on BiPAP in the ED and was discontinued for him to eat. Hospital Course Hospital Course: Patient was admitted early on today with acute respiratory failure. Please see H&P for full details. It appears he had been on trilogy as outpatient. He was found to be hypercapnic in the emergency room. By the time he was seen by the physician early on in the day it appears that he had improved and further evaluation by me early on today as well as this afternoon patient to be back at his baseline. His PCO2 has declined to 55 from 64. His confirms that he is at his baseline mental status. With no further interventions been planned patient is been discharged home. Physical Exam Vital Signs: Temp Pulse Resp BP Pulse Ox 98.4 F 61 18 130/52 H 91 L 09/14/17 16:13 09/14/17 16:13 09/14/17 16:13 09/14/17 16:13 09/14/17 16:13 Intake & Output 09/13/17 09/14/17 09/15/17 06:59 06:59 06:59 Weight 81.5 kg General appearance: PRESENT: no acute distress, well-developed, well-nourished Head exam: PRESENT: atraumatic, normocephalic Eye exam: PRESENT: conjunctiva pink, EOMI, PERRLA. ABSENT: scleral icterus Ear exam: PRESENT: normal external ear exam Mouth exam: PRESENT: moist, tongue midline Neck exam: ABSENT: carotid bruit, JVD, lymphadenopathy, thyromegaly Respiratory exam: PRESENT: clear to auscultation maday. ABSENT: rales, rhonchi, wheezes Cardiovascular exam: PRESENT: RRR. ABSENT: diastolic murmur, rubs, systolic murmur Pulses: PRESENT: normal dorsalis pedis pul Vascular exam: PRESENT: normal capillary refill GI/Abdominal exam: PRESENT: normal bowel sounds, soft. ABSENT: distended, guarding, mass, organolmegaly, rebound, tenderness Rectal exam: PRESENT: deferred Extremities exam: PRESENT: full ROM. ABSENT: calf tenderness, clubbing, pedal edema Neurological exam: PRESENT: alert, awake, oriented to person, oriented to place , oriented to time, oriented to situation, CN II-XII grossly intact. ABSENT: motor sensory deficit Psychiatric exam: PRESENT: appropriate affect, normal mood. ABSENT: homicidal ideation, suicidal ideation Skin exam: PRESENT: dry, intact, warm. ABSENT: cyanosis, rash Results Laboratory Results: 09/14/17 12:20 Carbonic Acid 1.58 H HCO3/H2CO3 Ratio 17:1 ABG pH 7.34 L ABG pCO2 52.5 H ABG pO2 72.6 L ABG HCO3 27.4 H ABG O2 Saturation 93.5 L ABG Base Excess 0.8 FiO2 2L Impressions: Chest X-Ray 09/13/17 21:48 IMPRESSION: 1. No acute pulmonary process identified. Qualifiers - * PATIENT BEING DISCHARGED WITH ANY OF THE FOLLOWING DIAGNOSIS: No Plan Time Spent: Less than 30 Minutes
== END 2017-09-14 16:35 | disposition home or self-care (01) ==
LOC: ER 18:26 → INTOOBSV 09-14 02:21 → EH 09-14 02:21 → 4W 09-14 10:45
PROVIDERS: ADMIT Internal Medicine; ATTEND Internal Medicine
DX: J96.22 Acute and chronic respiratory failure with hypercapnia (principal); J44.9 Chronic obstructive pulmonary disease, unspecified; G89.29 Other chronic pain; M54.9 Dorsalgia, unspecified; I25.10 Atherosclerotic heart disease of native coronary artery without angina pectoris; I11.0 Hypertensive heart disease with heart failure; I50.32 Chronic diastolic (congestive) heart failure; I25.2 Old myocardial infarction; Z79.899 Other long term (current) drug therapy; Z99.81 Dependence on supplemental oxygen; Z86.718 Personal history of other venous thrombosis and embolism; Z95.5 Presence of coronary angioplasty implant and graft; Z86.711 Personal history of pulmonary embolism; Z90.49 Acquired absence of other specified parts of digestive tract
CPT/HCPCS: 93005; 36415; 82553; 82803; 82550; 83735; 85025; 80053; 81001; 84484; 83880; 71045; 93010; 36600; 94660; G0378 ×2; J2930; J1650; J3475; J7030; A9270 ×3; J7620

== ENCOUNTER 2018-04-12 20:52 | Emergency (ER) | payer MEDICARE, BC ==
--- NOTE | 2018-04-12 23:46 | ER Document Report ---
HPI - HPI Patient complains to provider of: knot on back of head Time Seen by Provider: 04/12/18 23:30 Pain Level: 0 Context: Very pleasant 67-year-old male presents with a knot on the back of his head that started this morning and is gotten larger. He said it is not painful and his noticed it. Denies any fevers, chills, infectious symptoms. - REPRODUCTIVE Reproductive: DENIES: : Past Medical History - Social History Smoking Status: Unknown if Ever Smoked Family History: Arthritis, DM, Other - Past Medical History Cardiac Medical History: Reports: Hx Congestive Heart Failure, Hx DVT, Hx Heart Attack - and stent, Hx Hypercholesterolemia, Hx Hypertension, Hx Pulmonary Embolism Pulmonary Medical History: Reports: Hx Bronchitis, Hx COPD, Hx Sleep Apnea Denies: Hx Asthma, Hx Pneumonia, Hx Tuberculosis Neurological Medical History: Denies: Hx Seizures Renal/ Medical History: Denies: Hx Benign Prostatic Hyperplasia, Hx End Stage Renal Disease, Hx Kidney Stones, Hx Peritoneal Dialysis GI Medical History: Denies: Hx Cirrhosis, Hx Gastroesophageal Reflux Disease, Hx Ulcer Musculoskeletal Medical History: Reports Hx Arthritis, Denies Hx Multiple Sclerosis Psychiatric Medical History: Denies: Hx Bipolar Disorder, Hx Depression, Hx Schizophrenia Past Surgical History: Reports: Hx Cholecystectomy, Hx Orthopedic Surgery - carpel tunnel,neck, ORIF right wrist - Immunizations Immunizations up to date: Yes Hx Diphtheria, Pertussis, Tetanus Vaccination: Yes Hx Pneumococcal Vaccination: 02/05/13 Vertical Provider Document - CONSTITUTIONAL Notes: PHYSICAL EXAMINATION: Reviewed vital signs and charting by RN GENERAL: Alert, interacts well. No acute distress. HEAD: Normocephalic, atraumatic. Mobile mass on occipital portion of head midline at the base of the skull, no erythema, firm EYES: Pupils equal, round, and reactive to light. Extraocular movements intact. ENT: Oral mucosa moist, tongue midline. NECK: Full range of motion. Supple. Trachea midline. LUNGS: Clear to auscultation bilaterally, no wheezes, rales, or rhonchi. No respiratory distress. HEART: Regular rate and rhythm. No murmur ABDOMEN: soft, non-tender. Non-distended. Bowel sounds present in all 4 quadrants. no McBurney's point tenderness, no Diop sign. EXTREMITIES: Moves all 4 extremities spontaneously. No edema, No cyanosis. BACK: no cervical, thoracic, lumbar midline tenderness. No saddle anesthesia, normal distal neurovascular exam. NEUROLOGICAL: Alert and oriented x3. Normal speech. PSYCH: Normal affect, normal mood. SKIN: Warm, dry, normal turgor. No rashes or lesions noted. - INFECTION CONTROL TRAVEL OUTSIDE OF THE [place] IN LAST 30 DAYS: No Course - Re-evaluation Re-evalutation: 04/13/18 02:21 Overall well-appearing male with a cystic mass that is mobile on the back of his head. Does not appear to be an abscess, no evidence of infection. Told patient to follow-up with his primary care doctor in 3-5 days. - Vital Signs Vital signs: Temp Pulse Resp BP Pulse Ox 99.8 F 93 21 H 144/75 H 84 L 04/12/18 21:20 04/12/18 21:20 04/12/18 21:20 04/12/18 21:20 04/12/18 21:20 Discharge - Discharge Clinical Impression: Cyst Condition: Good Disposition: HOME, SELF-CARE Additional Instructions: It appears that you have a cyst on the back of your head. It is mobile and it does not look infected at all. This is all very reassuring. Sometimes these things can grow rapidly. Please watch it closely over the weekend and follow-up with your primary care doctor early next week. If you develop fever, you have concerns that it is getting infected, or becomes very large and painful and you are unable to sleep please return to the emergency department in the interim.
[2018-04-12 23:59] VITALS: BP 133/68
== END 2018-04-12 23:59 | disposition home or self-care (01) ==
LOC: ER 20:52
DX: L72.9 Follicular cyst of the skin and subcutaneous tissue, unspecified (principal); I50.9 Heart failure, unspecified; I11.0 Hypertensive heart disease with heart failure; E78.00 Pure hypercholesterolemia, unspecified; I25.2 Old myocardial infarction; Z86.718 Personal history of other venous thrombosis and embolism; Z90.49 Acquired absence of other specified parts of digestive tract
CPT/HCPCS: 99282

== ENCOUNTER 2018-05-16 21:20 | Emergency (ER) | payer MEDICARE, BC ==
--- NOTE | 2018-05-16 22:31 | ER Document Report ---
ED Medical Screen (RME) - General Chief Complaint: Pain All Over Stated Complaint: FEVER Time Seen by Provider: 05/16/18 22:24 Primary Care Provider: DEVORA VILLASEÑOR MD [Primary Care Provider] - Follow up as needed Notes: 67-year-old male chief complaint of 2 weeks of not feeling well. He states he is swelling mainly in his lower extremities, he has body aches all over, he is having fevers almost every night, during the day today he had a fever of 102 F reportedly, he reports some intermittent shortness of breath and discomfort in his chest as well. Denies vomiting, abdominal pain, diarrhea, headache. Past medical history includes CHF, CAD with [place], chronic respiratory failure with oxygen at home. TRAVEL OUTSIDE OF THE [place] IN LAST 30 DAYS: No - Related Data Allergies/Adverse Reactions: No Known Allergies Allergy (Verified 09/13/17 18:27) Past Medical History - Social History Chew tobacco use (# tins/day): No Frequency of alcohol use: None Drug Abuse: None - Past Medical History Cardiac Medical History: Reports: Hx Congestive Heart Failure, Hx DVT, Hx Heart Attack - and stent, Hx Hypercholesterolemia, Hx Hypertension, Hx Pulmonary Embolism Pulmonary Medical History: Reports: Hx Bronchitis, Hx COPD, Hx Sleep Apnea Denies: Hx Asthma, Hx Pneumonia, Hx Tuberculosis Neurological Medical History: Denies: Hx Seizures Renal/ Medical History: Denies: Hx Benign Prostatic Hyperplasia, Hx End Stage Renal Disease, Hx Kidney Stones, Hx Peritoneal Dialysis GI Medical History: Denies: Hx Cirrhosis, Hx Gastroesophageal Reflux Disease, Hx Ulcer Musculoskeltal Medical History: Reports Hx Arthritis, Denies Hx Multiple Sclerosis Psychiatric Medical History: Denies: Hx Bipolar Disorder, Hx Depression, Hx Schizophrenia Past Surgical History: Reports: Hx Cholecystectomy, Hx Orthopedic Surgery - carpel tunnel,neck, ORIF right wrist - Immunizations Immunizations up to date: Yes Hx Diphtheria, Pertussis, Tetanus Vaccination: Yes History of Influenza Vaccine for 11/2016 - 04/2017 Season: Yes Influenza Administration Date for 11/2016 - 04/2017 Season: 11/05/16 Physical Exam - Vital signs Vitals: Temp Pulse Resp BP Pulse Ox 98.3 F 91 22 H 108/65 95 05/16/18 22:11 05/16/18 22:11 05/16/18 22:11 05/16/18 22:11 05/16/18 22:11 - General General appearance: Alert - Respiratory Respiratory status: No respiratory distress Breath sounds: No: Decreased air movement, Nonproductive cough, Wheezing - Extremities General upper extremity: Edema - Bilateral 2-3+ pitting edema Course - Re-evaluation Re-evalutation: Patient is not in distress in triage, clear lungs, not hypoxic. Workup pending. I have greeted and performed a rapid initial assessment of this patient. A comprehensive ED assessment and evaluation of the patient, analysis of test results and completion of the medical decision making process will be conducted by additional ED providers. - Vital Signs Vital signs: Temp Pulse Resp BP Pulse Ox 98.3 F 91 22 H 108/65 95 05/16/18 22:11 05/16/18 22:11 05/16/18 22:11 05/16/18 22:11 05/16/18 22:11 Doctor's Discharge - Discharge Referrals: DEVORA VILLASEÑOR MD [Primary Care Provider] - Follow up as needed
--- NOTE | 2018-05-16 22:55 | RADIOLOGY REPORT (SQ) ---
EXAM DESCRIPTION: XR CHEST 2 VIEWS COMPLETED DATE/TME: 05/16/2018 22:28 CLINICAL HISTORY: 67 years, Male, fevers, shortness of breath COMPARISON: Prior study from 09/13/2017 NUMBER OF VIEWS: Two TECHNIQUE: Frontal and lateral radiographs of the chest were obtained LIMITATIONS: None. FINDINGS: Cardiac and mediastinal contours are normal in appearance. Lungs are clear. No pleural effusion or pneumothorax. Postprocedural changes of kyphoplasty are noted about the thoracolumbar junction. An inferior vena cava filter projects over the upper abdomen. In addition, calcific densities project about the expected location of the left rotator cuff, indicating chronic calcific tendinosis. IMPRESSION: No acute disease. copyright 2010 [email or web address] All Rights Reserved
[2018-05-16 23:54] LABS: VENOUS BLOOD BASE EXCESS 5.5 mmol/L; VENOUS BLOOD HCO3 29.7 mmol/L (20-32); VENOUS BLOOD PCO2 41.9 mmHg (35-63); VENOUS BLOOD PH 7.47 (7.30-7.42)
[2018-05-16 23:58] LABS: ABSOLUTE BASOPHILS # (AUTO) 0.1 10^3/uL (0.0-0.2); ABSOLUTE EOSINOPHILS # (AUTO) 0.1 10^3/uL (0.0-0.6); ABSOLUTE LYMPHOCYTES (AUTO) 0.7 10^3/uL (0.5-4.7); ABSOLUTE NEUT (AUTO) 8.7 10^3/uL (1.7-8.2); BASOPHILS % (AUTO) 0.5 % (0-2); EOSINOPHILS % (AUTO) 0.6 % (0-6); HEMATOCRIT 32.9 % (37.9-51.0); HEMOGLOBIN 10.8 g/dL (13.5-17.0); LYMPHOCYTES % (AUTO) 6.7 % (13-45); MEAN CORPUSCULAR HEMOGLOBIN 25.6 pg (27.0-33.4); MEAN CORPUSCULAR HGB CONC 32.8 g/dL (32.0-36.0); MEAN CORPUSCULAR VOLUME 78 fl (80-97); MONOCYTES % (AUTO) 9.4 % (3-13); PLATELET COUNT 397 10^3/uL (150-450); RED BLOOD COUNT 4.22 10^6/uL (4.35-5.55); RED CELL DISTRIBUTION WIDTH 20.1 % (11.5-14.0); SEGMENTED NEUTROPHILS % (AUTO) 82.8 % (42-78); TOTAL CELLS COUNTED % (AUTO) 100 %; WHITE BLOOD COUNT 10.5 10^3/uL (4.0-10.5)
[2018-05-17 00:12] LABS: ALANINE AMINOTRANSFERASE 35 U/L (21-72); ALBUMIN 3.1 g/dL (3.5-5.0); ALKALINE PHOSPHATASE 88 U/L (38-126); ANION GAP 9 (5-19); ASPARTATE AMINO TRANSFERASE 28 U/L (17-59); BILIRUBIN,DIRECT 0.3 mg/dL (0.0-0.4); BILIRUBIN,TOTAL 0.6 mg/dL (0.2-1.3); BLOOD UREA NITROGEN 8 mg/dL (7-20); CALCIUM 8.7 mg/dL (8.4-10.2); CARBON DIOXIDE 29 mmol/L (22-30); CHLORIDE 94 mmol/L (98-107); GLUCOSE 144 mg/dL (75-110); POTASSIUM 4.2 mmol/L (3.6-5.0); SODIUM 131.7 mmol/L (137-145); TOTAL PROTEIN 6.4 g/dL (6.3-8.2)
[2018-05-17 00:25] LABS: NT PRO BNP 1180 pg/mL (5-900); TROPONIN I < 0.012 ng/mL
[2018-05-17] MEDS ORDERED: METHYLPREDNISOLONE INJ 125 MG/2 ML SDV IV ONE (01:43)
[2018-05-17] MEDS ORDERED: FUROSEMIDE INJ/PF 40 MG/4 ML SDV IV ONE (01:43)
--- NOTE | 2018-05-17 01:57 | ER Document Report ---
ED General - General Chief Complaint: Pain All Over Stated Complaint: FEVER Time Seen by Provider: 05/16/18 22:24 Primary Care Provider: DEVORA VILLASEÑOR MD [Primary Care Provider] - Follow up in 3-5 days Notes: Patient is a 67 year old male with rheumatoid arthritis and CHF that presents to the emergency department for chief complaint of joint pain, intermittent fever, and leg swelling. Patient reports his been having worsening swelling in his joints for the past 2 weeks, it is worse in his hands and ankles. He is also noticed swelling in his legs. He states he does have CHF, does take 40 mg of Lasix daily. He is on methotrexate as well and takes prednisone 10 mg daily for his rheumatoid arthritis, which he believes is flared up. His hand is more swollen in particular on the right. 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 He denies having any chest pain, admits of mild shortness of breath, but nothing significant according to the patient. Denies any nausea, vomiting, diarrhea, dysuria, hematuria or diaphoresis. His notes that he has been having some intermittent fevers, will happen one day and then not the other. His also states been having daytime sleepiness, he does have a BiPAP machine he uses and has been using it as directed, but over the past several months, he is been more drowsy during the day, but he is a arousable when he has these daytime naps. Past Medical History: Rheumatoid arthritis,, CAD, CHF, COPD Past Surgical History: PCI with stenting Social History: Denies tobacco, alcohol or drug use. Family History: Reviewed and noncontributory for presenting illness Allergies: Reviewed, see documented allergy list. REVIEW OF SYSTEMS: Other than noted above, the 12 point review of systems was reviewed with the patient and were negative, all pertinent findings are included in the HPI. PHYSICAL EXAMINATION: Vital signs reviewed, nursing noted reviewed. GENERAL: Early male, no acute distress HEAD: Atraumatic, normocephalic. EYES: Eyes appear normal, extraocular movements intact, sclera anicteric, conjunctiva are normal. ENT: nares patent, oropharynx clear without exudates. Moist mucous membranes. NECK: Normal range of motion, supple without lymphadenopathy LUNGS: Breath sounds clear to auscultation bilaterally and equal. No wheezes rales or rhonchi. HEART: Regular rate and rhythm without murmurs ABDOMEN: Soft, nontender, normoactive bowel sounds. No rebound, guarding, or rigidity. No masses appreciated. EXTREMITIES: Tenderness to palpation to several the patient's joints, particularly the ankles, the right first and second MCP joints do appear swollen, and are tender to palpate. Good range of motion, bilateral 2+ pitting edema to the proximal tibias. NEUROLOGICAL: No focal neurological deficits. Moves all extremities spontaneously Motor and sensory grossly intact on exam. PSYCH: Normal mood, normal affect. SKIN: Warm, Dry, normal turgor, no rashes or lesions noted on exposed skin TRAVEL OUTSIDE OF THE [place] IN LAST 30 DAYS: No - Related Data Allergies/Adverse Reactions: No Known Allergies Allergy (Verified 09/13/17 18:27) Past Medical History - Social History Smoking Status: Never Smoker Chew tobacco use (# tins/day): No Frequency of alcohol use: None Drug Abuse: None Family History: Arthritis, DM, Other Patient has suicidal ideation: No Patient has homicidal ideation: No - Past Medical History Cardiac Medical History: Reports: Hx Congestive Heart Failure, Hx DVT, Hx Heart Attack - and stent, Hx Hypercholesterolemia, Hx Hypertension, Hx Pulmonary Embolism Pulmonary Medical History: Reports: Hx Bronchitis, Hx COPD, Hx Sleep Apnea Denies: Hx Asthma, Hx Pneumonia, Hx Tuberculosis Neurological Medical History: Denies: Hx Seizures Renal/ Medical History: Denies: Hx Benign Prostatic Hyperplasia, Hx End Stage Renal Disease, Hx Kidney Stones, Hx Peritoneal Dialysis GI Medical History: Denies: Hx Cirrhosis, Hx Gastroesophageal Reflux Disease, Hx Ulcer Musculoskeletal Medical History: Reports Hx Arthritis, Denies Hx Multiple Sclerosis Psychiatric Medical History: Denies: Hx Bipolar Disorder, Hx Depression, Hx Schizophrenia Past Surgical History: Reports: Hx Cholecystectomy, Hx Orthopedic Surgery - carpel tunnel,neck, ORIF right wrist - Immunizations Immunizations up to date: Yes Hx Diphtheria, Pertussis, Tetanus Vaccination: Yes Hx Pneumococcal Vaccination: 02/05/13 Physical Exam - Vital signs Vitals: Temp Pulse Resp BP Pulse Ox 98.3 F 91 22 H 108/65 95 05/16/18 22:11 05/16/18 22:11 05/16/18 22:11 05/16/18 22:11 05/16/18 22:11 Course - Re-evaluation Re-evalutation: Patient seen and examined vital signs reviewed. Laboratory data and/or imaging were ordered as appropriate for the patient's presenting symptoms and complaint, with consideration of any critical or life threatening conditions that may be associated with their obtained history and exam as noted above. Patient was treated with IV Solu-Medrol, and IV Lasix Results were reviewed when available and demonstrated mild hyponatremia, likely hypervolemic, secondary to patient's mild peripheral edema, likely mild CHF exacerbation, however patient's chest x-ray was negative, and he was not having any significant shortness of breath and not hypoxic, UA was unremarkable, no signs of infection, no leukocytosis, examination was most consistent with a rheumatoid arthritis flare, has he had significant joint tenderness in multiple joints, bilaterally, he had a few areas of may be early cellulitis in the lower extremities, will treat this with p.o. Keflex, place the patient on a steroid taper which has improved his symptoms like this in the past, and advised him to follow-up with his drying room attendant The patient was re-evaluated and was improved and stable Results were discussed with the patient at this point, after careful consideration I feel that that patient can be discharged from the emergency department, the patient was educated treatments and reasons to return to the emergency department based on their presumed diagnosis as noted above, they were advised to followup with a primary care physician in 2-3 days. Patient was agreeable to plan of care. *Note is created using voice recognition software and may contain spelling, syntax or grammatical errors. Laboratory 05/16/18 05/16/18 05/16/18 23:37 23:37 23:37 WBC 10.5 RBC 4.22 L Hgb 10.8 L Hct 32.9 L MCV 78 L MCH 25.6 L MCHC 32.8 RDW 20.1 H Plt Count 397 Seg Neutrophils % 82.8 H Lymphocytes % 6.7 L Monocytes % 9.4 Eosinophils % 0.6 Basophils % 0.5 Absolute Neutrophils 8.7 H Absolute Lymphocytes 0.7 Absolute Monocytes 1.0 Absolute Eosinophils 0.1 Absolute Basophils 0.1 VBG pH VBG pCO2 VBG HCO3 VBG Base Excess Sodium 131.7 L Potassium 4.2 Chloride 94 L Carbon Dioxide 29 Anion Gap 9 BUN 8 Creatinine 0.49 L Est GFR ( Amer) > 60 Est GFR (Non-Af Amer) > 60 Glucose 144 H Calcium 8.7 Total Bilirubin 0.6 Direct Bilirubin 0.3 Neonat Total Bilirubin Not Reportable Neonat Direct Bilirubin Not Reportable Neonat Indirect Bili Not Reportable AST 28 ALT 35 Alkaline Phosphatase 88 Troponin I < 0.012 NT-Pro-B Natriuret Pep 1180 H Total Protein 6.4 Albumin 3.1 L Urine Color Urine Appearance Urine pH Ur Specific [place] Urine Protein Urine Glucose (UA) Urine Ketones Urine Blood Urine Nitrite Urine Bilirubin Urine Urobilinogen Ur Leukocyte Esterase Urine WBC (Auto) Urine RBC (Auto) Urine Mucus (Auto) Urine Ascorbic Acid 05/16/18 05/17/18 23:37 02:11 WBC RBC Hgb Hct MCV MCH MCHC RDW Plt Count Seg Neutrophils % Lymphocytes % Monocytes % Eosinophils % Basophils % Absolute Neutrophils Absolute Lymphocytes Absolute Monocytes Absolute Eosinophils Absolute Basophils VBG pH 7.47 H VBG pCO2 41.9 VBG HCO3 29.7 VBG Base Excess 5.5 Sodium Potassium Chloride Carbon Dioxide Anion Gap BUN Creatinine Est GFR ( Amer) Est GFR (Non-Af Amer) Glucose Calcium Total Bilirubin Direct Bilirubin Neonat Total Bilirubin Neonat Direct Bilirubin Neonat Indirect Bili AST ALT Alkaline Phosphatase Troponin I NT-Pro-B Natriuret Pep Total Protein Albumin Urine Color YELLOW Urine Appearance CLEAR Urine pH 7.0 Ur Specific [place] 1.015 Urine Protein NEGATIVE Urine Glucose (UA) NEGATIVE Urine Ketones NEGATIVE Urine Blood NEGATIVE Urine Nitrite NEGATIVE Urine Bilirubin NEGATIVE Urine Urobilinogen 2.0 H Ur Leukocyte Esterase NEGATIVE Urine WBC (Auto) 1 Urine RBC (Auto) 0 Urine Mucus (Auto) RARE Urine Ascorbic Acid 20 H Chest X-Ray 05/16/18 22:28 IMPRESSION: No acute disease. copyright 2011 [employer]- All Rights Reserved - Vital Signs Vital signs: Temp Pulse Resp BP Pulse Ox 98.3 F 91 22 H 108/65 95 05/16/18 22:11 05/16/18 22:11 05/16/18 22:11 05/16/18 22:11 05/16/18 22:11 - Laboratory Result Diagrams: 05/16/18 23:37 05/16/18 23:37 Laboratory results interpreted by me: 05/16/18 05/16/18 05/16/18 23:37 23:37 23:37 RBC 4.22 L Hgb 10.8 L Hct 32.9 L MCV 78 L MCH 25.6 L RDW 20.1 H Seg Neutrophils % 82.8 H Lymphocytes % 6.7 L Absolute Neutrophils 8.7 H VBG pH Sodium 131.7 L Chloride 94 L Creatinine 0.49 L Glucose 144 H NT-Pro-B Natriuret Pep 1180 H Albumin 3.1 L Urine Urobilinogen Urine Ascorbic Acid 05/16/18 05/17/18 23:37 02:11 RBC Hgb Hct MCV MCH RDW Seg Neutrophils % Lymphocytes % Absolute Neutrophils VBG pH 7.47 H Sodium Chloride Creatinine Glucose NT-Pro-B Natriuret Pep Albumin Urine Urobilinogen 2.0 H Urine Ascorbic Acid 20 H - EKG Interpretation by Me Additional EKG results interpreted by me: EKG demonstrates sinus rhythm with a ventricular rate of 77 bpm, normal axis, QTC 450 ms, there are T wave inversions in leads II, 3, aVF, V3 through V6, this is compared with prior EKG, without significant change. Discharge - Discharge Clinical Impression: Rheumatoid arthritis flare, Peripheral edema, Hyponatremia Cellulitis Qualifiers: Site of cellulitis: extremity Site of cellulitis of extremity: lower extremity Laterality: unspecified laterality Qualified Code(s): L03.119 - Cellulitis of unspecified part of limb Condition: Stable Disposition: HOME, SELF-CARE Instructions: Edema, Peripheral ([facility]), Rheumatoid Arthritis ([facility]) Additional Instructions: Please take the prednisone taper as directed, and follow-up with your drying room attendant, complete the course of antibiotics as prescribed, and continue taking your Lasix as previously prescribed, without adjustments and follow-up with your primary care physician. Prescriptions: Cephalexin Monohydrate [Keflex 500 mg Capsule] 500 mg PO TID #15 capsule Prednisone [Deltasone 10 mg Tablet] 10 mg PO ASDIR #80 tablet Referrals: DEVORA VILLASEÑOR MD [Primary Care Provider] - Follow up in 3-5 days
[2018-05-17 02:32] LABS: APPEARANCE,URINE CLEAR; BILIRUBIN,URINE NEGATIVE (NEGATIVE); COLOR,URINE YELLOW; GLUCOSE, URINE NEGATIVE (NEGATIVE); KETONES,URINE NEGATIVE (NEGATIVE); LEUKOCYTE ESTERASE,URINE NEGATIVE (NEGATIVE); NITRITE,URINE NEGATIVE (NEGATIVE); PROTEIN,URINE NEGATIVE (NEGATIVE); URINE SPECIFIC GRAVITY 1.015
[2018-05-17 03:33] VITALS: BP 116/57
--- NOTE | 2018-05-17 09:54 | EKG REPORT ---
SEVERITY:- ABNORMAL ECG - SINUS RHYTHM INFERIOR INFARCT, AGE INDETERMINATE NONSPECIFIC T ABNORMALITIES, ANT-LAT LEADS : Confirmed by: Gabriele Gonsalves 17-May-2018 09:53:39
== END 2018-05-17 03:29 | disposition home or self-care (01) ==
LOC: ER 21:20
DX: M06.9 Rheumatoid arthritis, unspecified (principal); R60.9 Edema, unspecified; E87.1 Hypo-osmolality and hyponatremia; L03.119 Cellulitis of unspecified part of limb; R50.9 Fever, unspecified; I50.9 Heart failure, unspecified; I11.0 Hypertensive heart disease with heart failure; E78.00 Pure hypercholesterolemia, unspecified; Z86.718 Personal history of other venous thrombosis and embolism; I25.2 Old myocardial infarction; Z90.49 Acquired absence of other specified parts of digestive tract
CPT/HCPCS: 93005; 99284; 96374; 96375; 36415; 87040; 87086; 85025; 80053; 81001; 84484; 82803; 83880; 71046; 93010; J1940; J2930

== ENCOUNTER 2018-06-04 15:42 | Emergency (ER) | payer MEDICARE, BC ==
[2018-06-04 15:55] VITALS: BP 122/68
[2018-06-04] MEDS ORDERED: DIPH/PERTUSS(ACELL)/TETANUS VAC/PF 0.5 ML SYR (>=10YO) IM ONE (16:39)
--- NOTE | 2018-06-04 16:49 | ER Document Report ---
ED Medical Screen (RME) - General Chief Complaint: Fall Injury Stated Complaint: FALL/BODY PAIN Time Seen by Provider: 06/04/18 16:27 Primary Care Provider: DEVORA VILLASEÑOR MD [Primary Care Provider] - Follow up as needed TRAVEL OUTSIDE OF THE [place] IN LAST 30 DAYS: No - HPI Notes: 06/04/18 16:40 Patient is a 67-year-old male with a history of Rheumatoid arthritis, CAD, CHF, COPD who presents emergency department status post fall from 3 to 4 foot height/ladder. Patient was working in the bathroom when he lost his balance and tried jumping off a ladder, but hit the back of his head off of [place] sink, twisted his right knee/ankle, and somehow received skin tears to his distal anterior thigh and left upper extremity. Patient states that he does take aspirin daily, but no other blood thinning medication. Denies drug allergies. Denies any fever, changes in vision/speech/mentation/hearing, URI, sore throat, chest pain, palpitations, syncope, cough, shortness of breath, wheeze, dyspnea, abdominal pain, nausea/vomiting/diarrhea, urinary retention, dysuria, hematuria, loss of control of bowel or bladder, saddle anesthesia, muscle paralysis, or rash. I have treated and performed a rapid initial assessment of this patient. A comprehensive ED assessment and evaluation of the patient, analysis of test results and completion of medical decision making process will be conducted by additional ED providers. PHYSICAL EXAMINATION: (limited exam overall in PIT/Wheel Chair) GENERAL: Well-appearing, well-nourished and in no acute distress. A&Ox4. Answers questions appropriately. HEAD: + mild swelling w/o obvious hematoma noted posterior superior scalp. Non- tender. No watson sign EYES: Pupils equal round and reactive to light, extraocular movements intact, sclera anicteric, conjunctiva are normal. No raccoon eyes/entrapment ENT: EAC clear b/l. TM's intact b/l without erythema, fluid, or perforation. Nares patent and without discharge. oropharynx clear without exudates. No tonsilar hypertrophy or erythema. Moist mucous membranes. No sinus tenderness. No hemotympanum/CSF discharge. NECK: Normal range of motion, supple without lymphadenopathy. No rigidity. + mild midline tenderness. Chest: No flail chest. equal rise/fall. Non-tender LUNGS: Breath sounds clear to auscultation bilaterally and equal. No wheezes rales or rhonchi. HEART: Regular rate and rhythm without murmurs, rubs, gallops. ABDOMEN: Soft, nontender, nondistended abdomen. Limited exam in wheel chair. Needs further eval. Musculoskeletal: Rt knee: + ecchymosis. FROM. + tenderness b/l knee to palp and near the fibular head. Rt ankle: FROM. + tenderness, mild, b/l malleoli. N/v intact distal. Back: FROM to passive/active. Strength 5+/5. No vertebral point tenderness, stepoffs, or deformities. No other bony tenderness or ecchymosis. Extremities: No cyanosis, clubbing, or edema b/l. Peripheral pulses 2+. Capillary refill less than 2 seconds. NEUROLOGICAL: NIH 0. GCS 15. Cranial nerves grossly intact. Normal speech. PSYCH: Normal mood, normal affect. SKIN: + superficial skin tears to the LUE and lt anterior distal thigh. - Related Data Allergies/Adverse Reactions: No Known Allergies Allergy (Verified 09/13/17 18:27) Past Medical History - Past Medical History Cardiac Medical History: Reports: Hx Congestive Heart Failure, Hx DVT, Hx Heart Attack - and stent, Hx Hypercholesterolemia, Hx Hypertension, Hx Pulmonary Embolism Pulmonary Medical History: Reports: Hx Bronchitis, Hx COPD, Hx Sleep Apnea Denies: Hx Asthma, Hx Pneumonia, Hx Tuberculosis Neurological Medical History: Denies: Hx Seizures Renal/ Medical History: Denies: Hx Benign Prostatic Hyperplasia, Hx End Stage Renal Disease, Hx Kidney Stones, Hx Peritoneal Dialysis GI Medical History: Denies: Hx Cirrhosis, Hx Gastroesophageal Reflux Disease, Hx Ulcer Musculoskeltal Medical History: Reports Hx Arthritis, Denies Hx Multiple Sclerosis Psychiatric Medical History: Denies: Hx Bipolar Disorder, Hx Depression, Hx Schizophrenia Past Surgical History: Reports: Hx Cholecystectomy, Hx Orthopedic Surgery - carpel tunnel,neck, ORIF right wrist - Immunizations Immunizations up to date: Yes Hx Diphtheria, Pertussis, Tetanus Vaccination: Yes History of Influenza Vaccine for 11/2016 - 04/2017 Season: Yes Influenza Administration Date for 11/2016 - 04/2017 Season: 11/05/16 Physical Exam - Vital signs Vitals: Temp Pulse Resp BP Pulse Ox 97.7 F 96 18 122/68 95 06/04/18 15:52 06/04/18 15:52 06/04/18 15:52 06/04/18 15:52 06/04/18 15:52 Course - Vital Signs Vital signs: Temp Pulse Resp BP Pulse Ox 97.7 F 96 18 122/68 95 06/04/18 15:52 06/04/18 15:52 06/04/18 15:52 06/04/18 15:52 06/04/18 15:52 Doctor's Discharge - Discharge Referrals: DEVORA VILLASEÑOR MD [Primary Care Provider] - Follow up as needed
--- NOTE | 2018-06-04 17:25 | RADIOLOGY REPORT (SQ) ---
EXAM DESCRIPTION: CT CERVICAL SPINE WITHOUT COMPLETED DATE/TIME: 06/04/2018 4:52 pm REASON FOR STUDY: fall/injury COMPARISON: Lateral C-spine radiographs 10/21/2015 TECHNIQUE: Axial images acquired through the cervical spine without intravenous contrast. Images re viewed with lung, soft tissue and bone windows. Reconstructed coronal and sagittal MPR images review ed. Images stored on PACS. All CT scanners at this facility use dose modulation, iterative reconstruction, and/or weight based d osing when appropriate to reduce radiation dose to as low as reasonably achievable (ALARA). [facility]: Dose Right [facility]: CareDose [facility]: Dose Right [facility]: Teradose 4D [facility]: [employer] RADIATION DOSE: CT Rad equipment meets quality standard of care and radiation dose reduction techniq ues were employed. CTDIvol: 21.6 mGy. DLP: 418 mGy-cm. mGy. LIMITATIONS: None. FINDINGS: ALIGNMENT: Anatomic. MINERALIZATION: Normal. VERTEBRAL BODIES: C1 and C2 appear to be surgically fused. No acute fracture. DISCS: Disc spaces are narrowed from C4-C7 with marginal osteophytes. FACETS, LATERAL MASSES, POSTERIOR ELEMENTS: No fractures. No dislocation. No acute findings. HARDWARE: Posterior rods are present with screws through the pedicles at C1 and C2. VISUALIZED RIBS: No fractures. LUNG APICES AND SOFT TISSUES: No significant or acute findings. OTHER: No other significant finding. IMPRESSION: Surgical changes. Degenerative disc disease and spondylosis. No acute finding. TECHNICAL DOCUMENTATION: JOB ID: [id number] Quality ID # [id number]: Final reports with documentation of one or more dose reduction techniques (e.g., Au tomated exposure control, adjustment of the mA and/or kV according to patient size, use of iterative reconstruction technique) 2010 [employer]- All Rights Reserved Reading location - IP/workstation name: [email or web address]
--- NOTE | 2018-06-04 17:28 | RADIOLOGY REPORT (SQ) ---
EXAM DESCRIPTION: CT HEAD WITHOUT COMPLETED DATE/TIME: 06/04/2018 4:52 pm REASON FOR STUDY: fall/injury COMPARISON: 02/14/2015 TECHNIQUE: Axial images acquired through the brain without intravenous contrast. Images reviewed wi th bone, brain and subdural windows. Additional sagittal and coronal reconstructions were generated. Images stored on PACS. All CT scanners at this facility use dose modulation, iterative reconstruction, and/or weight based d osing when appropriate to reduce radiation dose to as low as reasonably achievable (ALARA). [facility]: Dose Right [facility]: CareDose [facility]: Dose Right [facility]: Teradose 4D [facility]: [employer] RADIATION DOSE: CT Rad equipment meets quality standard of care and radiation dose reduction techniq ues were employed. CTDIvol: 53.2 mGy. DLP: 1097 mGy-cm. mGy. LIMITATIONS: None. FINDINGS: VENTRICLES: Normal size and contour. CEREBRUM: No masses. No hemorrhage. No midline shift. No evidence for acute infarction. There is a small lacunar infarction in the right basal ganglia that is stable. Normal de oliveira/white matter differ entiation. No areas of low density in the white matter. CEREBELLUM: No masses. No hemorrhage. No alteration of density. No evidence for acute infarction. EXTRAAXIAL SPACES: No fluid collections. No masses. ORBITS AND GLOBE: No intra- or extraconal masses. Normal contour of globe without masses. CALVARIUM: No fracture. PARANASAL SINUSES: No fluid or mucosal thickening. SOFT TISSUES: No mass or hematoma. OTHER: No other significant finding. IMPRESSION: Small lacunar infarction in the right basal ganglia versus prominent perivascular space. No acute intracranial imaging findings. EVIDENCE OF ACUTE STROKE: NO. COMMENT: Quality ID # [id number]: Final reports with documentation of one or more dose reduction techniques (e.g., Automated exposure control, adjustment of the mA and/or kV according to patient size, use of iterative reconstruction technique) TECHNICAL DOCUMENTATION: JOB ID: [id number] [employer]- All Rights Reserved Reading location - IP/workstation name: [email or web address]
--- NOTE | 2018-06-04 17:33 | RADIOLOGY REPORT (SQ) ---
EXAM DESCRIPTION: ANKLE RIGHT COMPLETE COMPLETED DATE/TIME: 06/04/2018 5:16 pm REASON FOR STUDY: fall/injury COMPARISON: None. NUMBER OF VIEWS: Three views. TECHNIQUE: AP, lateral, and oblique radiographic images acquired of the right ankle. LIMITATIONS: None. FINDINGS: MINERALIZATION: Normal. BONES: No acute fracture or dislocation. No worrisome bone lesions. JOINTS: No effusions. SOFT TISSUES: No soft tissue swelling. No foreign body. OTHER: No other significant finding. IMPRESSION: NEGATIVE STUDY OF THE RIGHT ANKLE. NO RADIOGRAPHIC EVIDENCE OF ACUTE INJURY. TECHNICAL DOCUMENTATION: JOB ID: [id number] [employer]- All Rights Reserved Reading location - IP/workstation name: [email or web address]
--- NOTE | 2018-06-04 17:37 | RADIOLOGY REPORT (SQ) ---
EXAM DESCRIPTION: KNEE RIGHT 4 VIEWS COMPLETED DATE/TIME: 06/04/2018 5:16 pm REASON FOR STUDY: fall/injury COMPARISON: None. NUMBER OF VIEWS: Four views. TECHNIQUE: AP, lateral, and both oblique radiographic images acquired of the right knee. LIMITATIONS: None. FINDINGS: MINERALIZATION: Normal. BONES: No acute fracture or dislocation. No worrisome bone lesions. JOINT: No effusion. SOFT TISSUES: No soft tissue swelling. No radio-opaque foreign body. OTHER: No other significant finding. IMPRESSION: NEGATIVE STUDY OF THE RIGHT KNEE. NO RADIOGRAPHIC EVIDENCE OF ACUTE INJURY. TECHNICAL DOCUMENTATION: JOB ID: [id number] [employer]- All Rights Reserved Reading location - IP/workstation name: [email or web address]
--- NOTE | 2018-06-04 17:37 | RADIOLOGY REPORT (SQ) ---
EXAM DESCRIPTION: FOREARM LEFT COMPLETED DATE/TIME: 06/04/2018 5:16 pm REASON FOR STUDY: fall/injury COMPARISON: None. NUMBER OF VIEWS: Two views. TECHNIQUE: Two radiographic images acquired of the left forearm, including elbow and wrist in at [address] one projection. LIMITATIONS: None. FINDINGS: MINERALIZATION: Normal. BONES: [place] deformity of the wrist. No fracture. SOFT TISSUES: No obvious swelling or foreign body. OTHER: No other significant finding. IMPRESSION: Developmental wrist deformity. No fracture. TECHNICAL DOCUMENTATION: JOB ID: [id number] [employer]- All Rights Reserved Reading location - IP/workstation name: [email or web address]
--- NOTE | 2018-06-04 17:38 | RADIOLOGY REPORT (SQ) ---
EXAM DESCRIPTION: PELVIS AP COMPLETED DATE/TIME: 06/04/2018 5:16 pm REASON FOR STUDY: fall/injury COMPARISON: None. NUMBER OF VIEWS: One view TECHNIQUE: AP Pelvis LIMITATIONS: None. FINDINGS: MINERALIZATION: Normal. HIPS: No acute fracture or dislocation. No worrisome bone lesions. PELVIS AND SACRUM: No acute fracture or dislocation. No worrisome bone lesions. PUBIS AND ISCHIUM: No acute fracture. LOWER LUMBAR SPINE: Lateral fusions. SOFT TISSUES: No findings. OTHER: No other significant finding. IMPRESSION: NEGATIVE STUDY OF THE PELVIS. COMMENT: Pelvic fractures are often occult on plain radiographs. If strong clinical suspicion for f racture, recommend CT or MR. TECHNICAL DOCUMENTATION: JOB ID: [id number] [employer]- All Rights Reserved Reading location - IP/workstation name: [email or web address]
--- NOTE | 2018-06-04 21:47 | ER Document Report ---
ED Fall - General Chief Complaint: Fall Injury Stated Complaint: FALL/BODY PAIN Time Seen by Provider: 06/04/18 16:27 Primary Care Provider: DEVORA VILLASEÑOR MD [Primary Care Provider] - Follow up as needed Mode of Arrival: Wheelchair Information source: Patient Notes: Patient is a 67-year-old male who was brought to the emergency room by his after sustaining a mechanical fall off a ladder. Patient states he is pulled the nail out from above a door frame when the nail gave way he fell backwards off of 3 footstool landing on his back and right side. Patient complains of multiple skin tears to his left forearm and his left eid,. He also complains of right-sided hip pain knee pain ankle pain and forearm wrist pain. He states he fell back and hit his head but that was the least traumatic bump because it was the last portion of the body to hit. Patient denies taking blood thinners. Denies any visual changes nausea vomiting or loss of consciousness. He states he has not been able to ambulate since the fall. Because of his right knee pain. TRAVEL OUTSIDE OF THE [place] IN LAST 30 DAYS: No - HPI Occurred: Just prior to arrival Where: Home Context: Lost balance Associated symptoms: Difficulty walking. denies: Lost consciousness, Dazed/confused, Seizure, Difficulty breathing, Became dizzy/fainted, Blood in stool Location of injury/pain: Hip, Knee, Pelvic, Wrist, Upper extremity Quality of pain: Achy, Sharp, Throbbing Severity: Moderate Pain Level: 3 - Related data Allergies/Adverse Reactions: No Known Allergies Allergy (Verified 09/13/17 18:27) Past Medical History - General Information source: Patient - Social History Smoking Status: Never Smoker Cigarette use (# per day): No Chew tobacco use (# tins/day): No Smoking Education Provided: No Frequency of alcohol use: None Drug Abuse: None Lives with: Family, Spouse/Significant other Family History: Reviewed & Not Pertinent, Arthritis, DM, Other Patient has suicidal ideation: No Patient has homicidal ideation: No - Past Medical History Cardiac Medical History: Reports: Hx Congestive Heart Failure, Hx DVT, Hx Heart Attack - and stent, Hx Hypercholesterolemia, Hx Hypertension, Hx Pulmonary Embolism Pulmonary Medical History: Reports: Hx Bronchitis, Hx COPD, Hx Sleep Apnea Denies: Hx Asthma, Hx Pneumonia, Hx Tuberculosis Neurological Medical History: Denies: Hx Seizures Renal/ Medical History: Denies: Hx Benign Prostatic Hyperplasia, Hx End Stage Renal Disease, Hx Kidney Stones, Hx Peritoneal Dialysis GI Medical History: Denies: Hx Cirrhosis, Hx Gastroesophageal Reflux Disease, Hx Ulcer Musculoskeletal Medical History: Reports Hx Arthritis, Denies Hx Multiple Sclerosis Psychiatric Medical History: Denies: Hx Bipolar Disorder, Hx Depression, Hx Schizophrenia Past Surgical History: Reports: Hx Cholecystectomy, Hx Orthopedic Surgery - carpel tunnel,neck, ORIF right wrist - Immunizations Immunizations up to date: Yes Hx Diphtheria, Pertussis, Tetanus Vaccination: Yes Hx Pneumococcal Vaccination: 02/05/13 Review of Systems - Review of Systems Constitutional: No symptoms reported EENT: No symptoms reported Cardiovascular: No symptoms reported Respiratory: No symptoms reported Gastrointestinal: No symptoms reported Genitourinary: No symptoms reported Male Genitourinary: No symptoms reported Musculoskeletal: See HPI, Joint pain, Joint swelling, Muscle stiffness, Neck pain Skin: See HPI, Change in color, Other - Skin tear Hematologic/Lymphatic: No symptoms reported Neurological/Psychological: No symptoms reported -: Yes All other systems reviewed and negative Physical Exam - Vital signs Vitals: Temp Pulse Resp BP Pulse Ox 97.7 F 96 18 122/68 95 06/04/18 15:52 06/04/18 15:52 06/04/18 15:52 06/04/18 15:52 06/04/18 15:52 Interpretation: Normal - Notes Notes: PHYSICAL EXAMINATION: GENERAL: Well-appearing, well-nourished and in no acute distress. However does appear uncomfortable. HEAD: Atraumatic, normocephalic. Examination head and facial features show no signs of contusions abrasions or any type of acute findings. EYES: Pupils equal round and reactive to light, extraocular movements intact, sclera anicteric, conjunctiva are normal. ENT: Nares patent, oropharynx clear without exudates. Moist mucous membranes. NECK: Examination of patient's cervical spine shows some mild tenderness to palpation lower cervical spine area paravertebral he has some few spasms noted. Patient has full range of motion with no deficits. LUNGS: Breath sounds clear to auscultation bilaterally and equal. No wheezes rales or rhonchi. HEART: Regular rate and rhythm without murmurs ABDOMEN: Soft, nontender, nondistended abdomen. No guarding, no rebound. No masses appreciated. Musculoskeletal: Examination patient's area of concerns are as follows 1. Left forearm patient has multiple abrasions both on the inferior portion of the forearm and on the anterior portion of the forearm from blocking his fall. There is approximately 4 different areas of skin tears that are probably second- degree minimal bleeding is noted the skin is avulsed at this point though is unable to be put back into place. The bleeding is at a minimum. There is multiple different areas and links to numerous to count. At this point the skin tear to be treated as one. Patient also has tears on the webspaces of the first and second and third and fourth spaces of the left hand. Also note patient has full flexion extension of the fingers without any deficiencies. There is good cap refill in the nailbeds of the fingers of the left hand and right hand w ithout any problem. Good triage specialist strength is also noted. He has good flexion- extension of the wrist as well. 2. Right knee patient has a small abrasion on the right knee that he states is moderately tender. He has not been able to bear weight on the right leg secondary to discomfort and pain since his fall. Most the patient's damage was done to the left side of his body however he must the twisted and landed secondarily onto the right knee or patella area. There is no crepitus felt patient has good flexion and extension of the knee and has good flexion extension against resistance but has some discomfort and pain. Patient also has a moderate amount of laxity medially and laterally noted. Anterior drawer is negative. Straight leg raises are negative on the right side and the left side. Also to note on the left knee patient has a small nickel size abrasion on the patella area but no pain or discomfort to palpation in the area. NEUROLOGICAL: Normal speech, normal gait. Normal sensory, motor exams PSYCH: Normal mood, normal affect. SKIN: See musculoskeletal above for full details. Course - Re-evaluation Re-evalutation: 06/04/18 21:47 Patient's x-rays all came back negative for any acute findings. At this point we are placing patient in a knee immobilizer and nursing has cleaned and dressed patient's wounds. We will place patient on Keflex for coverage. And he has an orthopedic doctor that he sees outpatient here in town. He will follow-up with him for his knee and possible MRI at that point time. I will give patient a little pain medication to cover his time and discomfort. - Vital Signs Vital signs: Temp Pulse Resp BP Pulse Ox 97.7 F 96 18 122/68 95 06/04/18 15:52 06/04/18 15:52 06/04/18 15:52 06/04/18 15:52 06/04/18 15:52 Procedures - Immobilization Right Medial Knee Pre-Proc Neuro Vasc Exam: Normal Immobilizer type: Knee immobilizer Performed by: RN, PCT Post-Proc Neuro Vasc Exam: Normal, Unchanged from pre-exam Alignment checked and good: Yes Discharge - Discharge Clinical Impression: Abrasion, Skin tear, Internal derangement of right knee Fall Qualifiers: Encounter type: initial encounter Qualified Code(s): W19.XXXA - Unspecified fall, initial encounter Concussion Qualifiers: Encounter type: initial encounter Loss of consciousness presence/duration: without LOC Qualified Code(s): S06.0X0A - Concussion without loss of consciousness, initial encounter Condition: Stable Disposition: HOME, SELF-CARE Instructions: Skin Tear ([facility]), Knee Immobilizing Splint ([facility]), Suspected Internal Knee Injury ([facility]), Concussion ([facility]), Post-Concussion Syndrome ([facility]) Additional Instructions: Home and rest. Medications prescribed. As we discussed the need to change his dressings at least once a day and when wet and dirty. After they start to dry up he may trim the skin back. Take all of the oral antibiotics. May apply an antibiotic cream or ointment to the area with a nonstick nonocclusive dressing such as Telfa that you can find at the drugstore. He also use the Covan if you do not wrap it tightly. If you wrap it tightly you will cut circulation off. You will need to follow-up with your primary care for further evaluation and to make sure everything is healing appropriately. May return to ER for any concerns or problems. Prescriptions: Cephalexin Monohydrate [Keflex 500 mg Capsule] 500 mg PO Q6H 7 Days #28 capsule Hydrocodone/Acetaminophen [[place] 5-325 mg Tablet] 1 tab PO Q4 PRN #12 tablet PRN Reason: Referrals: DEVORA VILLASEÑOR MD [Primary Care Provider] - Follow up as needed
== END 2018-06-04 22:42 | disposition home or self-care (01) ==
LOC: ER 15:42
DX: S06.0X0A Concussion without loss of consciousness, initial encounter (principal); S51.812A Laceration without foreign body of left forearm, initial encounter; S61.412A Laceration without foreign body of left hand, initial encounter; S80.211A Abrasion, right knee, initial encounter; M25.551 Pain in right hip; M25.561 Pain in right knee; M25.571 Pain in right ankle and joints of right foot; M25.531 Pain in right wrist; M54.2 Cervicalgia; R25.2 Cramp and spasm; W11.XXXA Fall on and from ladder, initial encounter; Y93.89 Activity, other specified; Y92.009 Unspecified place in unspecified non-institutional (private) residence as the place of occurrence of the external cause; I10 Essential (primary) hypertension; J44.9 Chronic obstructive pulmonary disease, unspecified
CPT/HCPCS: 99284; 90471; 73610; 73090; 73564; 72170; 70450; 72125; 90715; L1830

== ENCOUNTER 2019-08-09 15:29 | Emergency (ER) | payer MEDICARE, BC ==
[2019-08-09] MEDS ORDERED: NALOXONE HCL INJ/PF 0.4 MG/1 ML SDV IV ONE (16:31)
--- NOTE | 2019-08-09 16:33 | ER Document Report ---
ED General - General Mode of Arrival: Medic Information source: Relative - , Emergency Med Personnel TRAVEL OUTSIDE OF THE [place] IN LAST 30 DAYS: No - Related Data Home Medications: symbicort. ferrous sulfate. mag ox. metoprolol. mixifloxacin. spiriva. diovan. lasix <REDDYSPENCER - Last Filed: 08/09/19 20:18> <DUNG BRANDT IV - Last Filed: 08/10/19 00:53> - General Chief Complaint: Low Blood Pressure Stated Complaint: WEAKNESS,CANT STAY AWAKE Time Seen by Provider: 08/09/19 16:29 Primary Care Provider: DEVORA VILLASEÑOR MD [Primary Care Provider] - Follow up as needed Notes: 68-year-old male presents to the emergency department with a history of EMS called to the home because the patient was having difficulty breathing and a heart rate at 38 per the family. They also note that he is lethargic and difficult to awake. EMS arrived found the patient have a blood pressure 100/70, however it decreased to 60/38 when they got him up and removed. He was given a bolus of fluid, as noted to the patient was discharged from [facility] yesterday after a non-STEMI. Is also noted that he has right sided rib fractures which occurred prior to being transferred to [place]. He had been seen at [facility]. He has been COVID test x2 which are negative. Discharge from [facility] revealed diagnosis of COPD, congestive heart failure cardiomyopathy, home O2 at 2-1/2 L, the addition of morphine 30 mg extended release and he has been taken morphine 15 mg 3 times a day in the past. Patient is unable to give a history as he is very drowsy and cannot appear to keep himself awake long enough to finish a sentence. (SPENCER BLAKELY) - Related Data Allergies/Adverse Reactions: No Known Allergies Allergy (Verified 08/09/19 15:48) Past Medical History - Social History Smoking Status: Never Smoker Chew tobacco use (# tins/day): No Frequency of alcohol use: None Drug Abuse: None Family History: Reviewed & Not Pertinent, Arthritis, DM, Other Patient has homicidal ideation: No - Past Medical History Cardiac Medical History: Reports: Hx Congestive Heart Failure, Hx DVT, Hx Heart Attack - and stent, Hx Hypercholesterolemia, Hx Hypertension, Hx Pulmonary Embolism, Other - Cardiomyopathy Pulmonary Medical History: Reports: Hx Bronchitis, Hx COPD, Hx Sleep Apnea Denies: Hx Asthma, Hx Pneumonia, Hx Tuberculosis Neurological Medical History: Denies: Hx Seizures, Hx Parkinson's Disease Renal/ Medical History: Denies: Hx Benign Prostatic Hyperplasia, Hx End Stage Renal Disease, Hx Kidney Stones, Hx Peritoneal Dialysis GI Medical History: Denies: Hx Cirrhosis, Hx Gastroesophageal Reflux Disease, Hx Ulcer Musculoskeletal Medical History: Reports Hx Arthritis, Denies Hx Multiple Sclero sis Psychiatric Medical History: Denies: Hx Bipolar Disorder, Hx Depression, Hx Schizophrenia Past Surgical History: Reports: Hx Cholecystectomy, Hx Orthopedic Surgery - carpel tunnel,neck, ORIF right wrist - Immunizations Immunizations up to date: Yes Hx Diphtheria, Pertussis, Tetanus Vaccination: Yes Hx Pneumococcal Vaccination: 02/05/13 <SPENCER BLAKELY - Last Filed: 08/09/19 20:18> Review of Systems <SPENCER BLAKELY - Last Filed: 08/09/19 20:18> - Review of Systems Notes: Review of systems was performed after the patient received Narcan. Constitutional: Negative for fever. HENT: Negative for sore throat. Eyes: Negative for visual changes. Cardiovascular: Negative for chest pain. Respiratory: + Right chest pain. Gastrointestinal: Negative for abdominal pain, vomiting or diarrhea. Genitourinary: Negative for dysuria. Musculoskeletal: Negative for back pain. Skin: Negative for rash. Neurological: + Lethargy, improved (more alert after Narcan.) 10 point ROS negative except as marked above and in HPI. (SPENCER BLAKELY) Physical Exam <SPENCER BLAKELY - Last Filed: 08/09/19 20:18> - Vital signs Vitals: Temp 97.7 F 08/09/19 15:49 - Notes Notes: PHYSICAL EXAMINATION: Physical Exam: General: Chronically ill-appearing 68-year-old man in no acute distress lethargic/sleepy HEENT: NC/AT, pupils equal round and reactive to light, lips are dry, MM moist,nares clear, oropharynx clear, airway patent Neck: supple, no adenopathy, no masses. Good range of motion Lungs: clear, no wheezing, no rales no rhonchi CVS: Regular rate and rhythm no murmur gallop or rub Chest: + Tenderness in the right lateral chest wall. Abdomen: Soft, active, nontender, no masses, no hepatosplenomegaly Ext: No edema, clubbing or cyanosis. Neuro: Alert and responsive, moving all 4 extremities on command, cranial nerves intact, no focal findings Skin: Intact no open lesions, no rash Patient was given 0.2 mg of Narcan, suddenly wide awake, screaming for pain medications, holding his right side. (SPENCER BLAKELY) Course - Laboratory Result Diagrams: 08/09/19 16:14 08/09/19 16:14 - Diagnostic Test Radiology reviewed: Image reviewed, Reports reviewed - EKG Interpretation by Me EKG shows normal: Sinus rhythm, [place] - Normal axis, Intervals - No intervals, QRS Complexes - QRSD 88, ST-T Waves - No acute ST-T wave abnormalities, no ischemic changes. Q waves and II,III and F suggestive of possible old inferior infarct. Rate: Normal - 60 Rhythm: NSR When compared to previous EKG there are: No significant change - Paired to a EKG performed on 05/17/2018. <SPENCER BLAKELY - Last Filed: 08/09/19 20:18> - Laboratory Result Diagrams: 08/09/19 16:14 08/09/19 16:14 <DUNG BRANDT IV - Last Filed: 08/10/19 00:53> - Re-evaluation Re-evalutation: 08/09/19 19:58 I have discussed the patient with the front end software engineer [facility], troponin was 0.4 at the time of discharge yesterday. Given the lack of EKG changes and a troponin which was 0.073, it is felt that the patient does not need to be transferred for catheterization or cardiac intervention. 08/09/19 20:00 I discussed the patient with the hospitalist Dr. Stone, does not feel comfortable admitting the patient to [facility] due to hypotension, CHF, COPD, hypercapnic status and cardiomyopathy. (SPENCER BLAKELY) 08/09/19 21:12 This MD discussed case with the hospitalist at [facility], Dr. Loredo. He stated that the patient was not discharged on an increased amount of morphine and was discharged with the same 15 mg dose that he was on prior to discharge. However he did state that the patient's Lasix was increased to 40 mg twice daily, the patient was started on Toprol-XL 25 mg daily and valsartan [address] Loredo feels that given the patient is responding to fluid that the best plan of action would be to observe his him overnight, and discharge him on a decreased dose of Toprol, valsartan and Lasix. Specifically Dr. Loredo suggested the patient's Lasix to be decreased to 40 mg daily, Toprol-XL will be decreased to 12.5 mg daily and valsartan will be decreased to 40 mg daily. 08/09/19 21:16 Patient's repeat troponin has decreased from 0.073 to 0.058. 08/10/19 00:41 Results of ED MSE discussed with patient. Recommendation to decrease Lasix Toprol and valsartan discussed with patient. Patient expressed understanding of plan to do this. All questions were answered prior to discharge. Emergency signs and symptoms, reasons to return to the emergency department discussed with patient. (DUNG BRANDT IV) - Vital Signs Vital signs: Temp Pulse Resp BP Pulse Ox 98.5 F 19 102/55 L 99 08/09/19 21:10 08/10/19 00:15 08/10/19 00:15 08/10/19 00:15 - Laboratory Laboratory results interpreted by ar: 08/09/19 08/09/19 08/09/19 16:14 16:14 16:14 RBC 4.21 L Hgb 11.5 L Hct 36.5 L MCHC 31.6 L RDW 21.4 H Lymph % (Auto) 11.3 L [place] % (Auto) 14.3 H Carbonic Acid ABG pH ABG pCO2 ABG pO2 ABG HCO3 ABG Total CO2 ABG O2 Saturation Sodium 135.0 L Potassium 5.3 H Chloride 93 L Carbon Dioxide 38 H Anion Gap 4 L BUN 37 H Creatinine 1.38 H Est GFR (MDRD) Non-Af 51 L Calcium 8.2 L NT-Pro-B Natriuret Pep 877 H Total Protein 5.8 L Albumin 3.3 L Urine Ascorbic Acid 08/09/19 08/09/19 08/09/19 17:42 21:06 21:50 RBC Hgb Hct MCHC RDW Lymph % (Auto) [place] % (Auto) Carbonic Acid 2.09 H 2.22 H ABG pH 7.30 L ABG pCO2 69.5 H* 73.8 H* ABG pO2 68.4 L 79.5 L ABG HCO3 37.1 H 35.5 H ABG Total CO2 39.2 H 37.8 H ABG O2 Saturation 92.0 L Sodium Potassium Chloride Carbon Dioxide Anion Gap BUN Creatinine Est GFR (MDRD) Non-Af Calcium NT-Pro-B Natriuret Pep Total Protein Albumin Urine Ascorbic Acid 40 H I have reviewed laboratory data and used this information for the treatment deci sions regarding the patient. (SPENCER BLAKELY) - Diagnostic Test Radiology results interpreted by me: 08/09/19 20:24 Chest x-ray: Right basilar consolidation, possible atelectasis, small pleural effusions bilaterally. (SPENCER BLAKELY) Critical Care Note - Critical Care Note Total time excluding time spent on procedures (mins): 60 - Critical care time spent obtaining history from patient or surrogate, discussions with consultants, development of treatment plan with patient or surrogate, evaluation of patient's response to treatment, examination of patient, ordering and performing treatments and interventions, ordering and review of laboratory studies, re- evaluation of patient's condition, ordering and review of radiographic studies a nd review of old charts <SPENCER BLAKELY - Last Filed: 08/09/19 20:18> Discharge <SPENCER BLAEKLY - Last Filed: 08/09/19 20:18> <DUNG BRANDT IV - Last Filed: 08/10/19 00:53> - Discharge Clinical Impression: Opiate dependence, continuous, Acute and chronic respiratory failure with hype rcapnia Opioid overdose Qualifiers: Encounter type: initial encounter Injury intent: intentional self-harm Den lified Code(s): T40.2X2A - Poisoning by other opioids, intentional self-harm, initial encounter Hypotension Qualifiers: Hypotension type: unspecified hypotension type Qualified Code(s): I95.9 - Hypotension, unspecified COPD (chronic obstructive pulmonary disease) Qualifiers: COPD type: unspecified COPD Qualified Code(s): J44.9 - Chronic obstructive pulmonary disease, unspecified Cardiomyopathy Qualifiers: Cardiomyopathy type: unspecified Qualified Code(s): I42.9 - Cardiomyopathy, unspecified Diastolic congestive heart failure Qualifiers: Heart failure chronicity: chronic Qualified Code(s): I50.32 - Chronic diastolic (congestive) heart failure Condition: Stable Disposition: HOME, SELF-CARE Additional Instructions: Some of your medications are being adjusted because of the episode of low blood pressure you had today. Instead of taking Lasix 40 mg twice a day, instead take it 1 time daily. Your Toprol XL is being reduced from 25 mg daily to 12.5 mg daily. You will be given a prescription for this new dose. Your valsartan 80 mg is being reduced to 40 mg daily. You will be given prescription for this new dose Return to the Emergency Department without delay if any worse. HOME CARE INSTRUCTIONS & INFORMATION: Thank you for choosing us for your medical needs. We hope you're satisfied with the care you received. After you leave, you must properly care for your problem and, at the same time, observe its progress. Any condition can change. Some illnesses can change rapidly over hours or days. If your condition worsens, return to the Emergency Department or see your physician promptly. ABOUT YOUR X-RAYS AND EKG'S: If you had an EKG or X-rays taken, they have been read by the Emergency Physician. The X-rays and EKG's will also be read by a Rad iologist or Blender within 24 hours. If discrepancies are noted, you will be notified by telephone. Please be certain the ED has a correct telephone number & address where you can be reached. Also, realize that some fractures or abnormalities do not show up on initial X-rays. If your symptoms continue, see your physician. ABOUT YOUR LABORATORY TEST: If you had laboratory tests, the results have been reviewed by the Emergency Physician. Some test results (for example cultures) may not be available for several days. You will be contacted if any test result shows you need additional treatment. Please be certain the ED has a correct telephone number and address where you can be reached. ABOUT YOUR MEDICATIONS: You will receive instructions on how to take your medicine on the prescription label you receive. Additional information may be provided by the Pharmacy. If you have questions afterwards, call the ED for clarification or further instructions. Some prescribed medications may cause drowsiness. Do not perform tasks such as driving a car or operating machinery without consulting your Pharmacist. If you feel you need a refill of pain medication, your condition will need re-evaluation. Please do not call for a refill of any medication. ABOUT YOUR SIGNATURE: Signature of this document acknowledges to followin. Understanding that you received emergency treatment and that you may be released before al medical problems are known or treated. Please be certain the ED has a correct phone number & address where you can be reached. 2. Acknowledgement that you will arrange for follow-up care as recommended. 3. Authorization for the Emergency Physician to provide information to your follow-up Physician in order to maximize your care. AT ANY TIME, IF YOUR SYMPTOMS CHANGE SIGNIFICANTLY OR WORSEN OR YOU DEVELOP NEW SYMPTOMS, RETURN TO THE EMERGENCY DEPARTMENT IMMEDIATELY FOR RE-EVALUATION. OUR GOAL IS TO PROVIDE EXCELLENT MEDICAL CARE! WE HOPE THAT WE HAVE MET YOUR EXPECTATIONS DURING YOUR EMERGENCY DEPARTMENT VISIT AND THAT YOU FEEL YOU HAVE RECEIVED EXCELLENT CARE! Prescriptions: Metoprolol Succinate [Toprol Xl 25 mg Tab.sr] 12.5 mg PO DAILY #15 tab.sr.24h Valsartan 40 mg PO DAILY #15 tablet Referrals: DEVORA VILLASEÑOR MD [Primary Care Provider] - 08/11/19
[2019-08-09 16:34] LABS: ABSOLUTE BASOPHILS # (AUTO) 0.1 10^3/uL (0.0-0.2); ABSOLUTE EOSINOPHILS # (AUTO) 0.2 10^3/uL (0.0-0.6); ABSOLUTE LYMPHOCYTES (AUTO) 0.9 10^3/uL (0.5-4.7); ABSOLUTE MONOCYTES (AUTO) 1.1 10^3/uL (0.1-1.4); ABSOLUTE NEUT (AUTO) 5.7 10^3/uL (1.7-8.2); BASOPHILS % (AUTO) 0.7 % (0-2); HEMATOCRIT 36.5 % (37.9-51.0); HEMOGLOBIN 11.5 g/dL (13.5-17.0); LYMPHOCYTES % (AUTO) 11.3 % (13-45); MEAN CORPUSCULAR HEMOGLOBIN 27.4 pg (27.0-33.4); MEAN CORPUSCULAR HGB CONC 31.6 g/dL (32.0-36.0); MEAN CORPUSCULAR VOLUME 87 fl (80-97); MONOCYTES % (AUTO) 14.3 % (3-13); PLATELET COUNT 233 10^3/uL (150-450); RED BLOOD COUNT 4.21 10^6/uL (4.35-5.55); RED CELL DISTRIBUTION WIDTH 21.4 % (11.5-14.0); SEGMENTED NEUTROPHILS % (AUTO) 70.7 % (42-78); TOTAL CELLS COUNTED % (AUTO) 100 %; WHITE BLOOD COUNT 8.1 10^3/uL (4.0-10.5)
[2019-08-09] MEDS ORDERED: KETOROLAC TROMETHAMINE INJ/PF 30 MG/1 ML SDV IV ONE (16:45)
[2019-08-09 16:47] LABS: ALBUMIN 3.3 g/dL (3.5-5.0); ALKALINE PHOSPHATASE 112 U/L (38-126); ASPARTATE AMINO TRANSFERASE 37 U/L (17-59); BILIRUBIN,TOTAL 0.2 mg/dL (0.2-1.3); BLOOD UREA NITROGEN 37 mg/dL (7-20); CALCIUM 8.2 mg/dL (8.4-10.2); CARBON DIOXIDE 38 mmol/L (22-30); CHLORIDE 93 mmol/L (98-107); CREATINE KINASE 63 U/L (55-170); GLUCOSE 87 mg/dL (75-110); POTASSIUM 5.3 mmol/L (3.6-5.0); TOTAL PROTEIN 5.8 g/dL (6.3-8.2)
[2019-08-09] MEDS ORDERED: MORPHINE SULFATE 10 MG/ML INJ IV ONE (16:48)
[2019-08-09 16:54] LABS: ANION GAP 4 (5-19)
[2019-08-09 16:58] LABS: CREATINE KINASE MB 3.59 ng/mL (<4.55)
[2019-08-09 17:02] LABS: TROPONIN I 0.073 ng/mL
[2019-08-09] MEDS ORDERED: NORMAL SALINE 500 ML IV ONE (17:41)
[2019-08-09 18:00] LABS: ARTERIAL BLOOD BASE EXCESS 9.1 mmol/L; ARTERIAL BLOOD H2CO3 2.09 mmol/L (1.05-1.35); ARTERIAL BLOOD HCO3 37.1 mmol/L (20-24); ARTERIAL BLOOD PH 7.35 (7.35-7.45); ARTERIAL BLOOD PO2 68.4 mmHg (80-100); ARTERIAL BLOOD TOTAL CO2 39.2 mmol/L (23-27)
[2019-08-09 18:02] LABS: ARTERIAL BLOOD FIO2 3L; ARTERIAL BLOOD PCO2 69.5 mmHg (35-45)
--- NOTE | 2019-08-09 18:23 | RADIOLOGY REPORT (SQ) ---
EXAM DESCRIPTION: CHEST SINGLE VIEW IMAGES COMPLETED DATE/TIME: 08/09/2019 6:10 pm REASON FOR STUDY: Decreased responsiveness COMPARISON: 05/16/2018 TECHNIQUE: Single frontal radiographic view of the chest acquired. NUMBER OF VIEWS: One view. LIMITATIONS: None. FINDINGS: LUNGS AND PLEURA: No pneumothorax. Right basilar consolidation. Small bilateral pleural effusions. MEDIASTINUM AND HILAR STRUCTURES: Stable. HEART AND VASCULAR STRUCTURES: Stable. BONES: No acute findings. HARDWARE: None in the chest. OTHER: No other significant finding. IMPRESSION: Right basilar consolidation. Small bilateral pleural effusions. TECHNICAL DOCUMENTATION: JOB ID: [id number] [place]-72 2010 [employer]- All Rights Reserved Reading location - IP/workstation name: [employer]
[2019-08-09 21:33] LABS: APPEARANCE,URINE CLEAR; BILIRUBIN,URINE NEGATIVE (NEGATIVE); COLOR,URINE YELLOW; GLUCOSE, URINE NEGATIVE (NEGATIVE); KETONES,URINE NEGATIVE (NEGATIVE); LEUKOCYTE ESTERASE,URINE NEGATIVE (NEGATIVE); NITRITE,URINE NEGATIVE (NEGATIVE); PROTEIN,URINE NEGATIVE (NEGATIVE); URINE SPECIFIC GRAVITY 1.011; UROBILINOGEN,URINE NEGATIVE mg/dL (<2.0)
--- NOTE | 2019-08-09 21:54 | EKG REPORT ---
SEVERITY:- ABNORMAL ECG - SINUS RHYTHM PROBABLE INFERIOR INFARCT, AGE INDETERMINATE NONSPECIFIC T ABNORMALITIES, ANT-LAT LEADS : Confirmed by: Sophia Lemus MD 09-Aug-2019 21:52:50
[2019-08-09 23:16] LABS: ARTERIAL BLOOD BASE EXCESS 6.8 mmol/L; ARTERIAL BLOOD FIO2 2.5L; ARTERIAL BLOOD H2CO3 2.22 mmol/L (1.05-1.35); ARTERIAL BLOOD HCO3 35.5 mmol/L (20-24); ARTERIAL BLOOD PO2 79.5 mmHg (80-100); ARTERIAL BLOOD TOTAL CO2 37.8 mmol/L (23-27)
[2019-08-09 23:54] LABS: ARTERIAL BLOOD PCO2 73.8 mmHg (35-45)
[2019-08-10 01:36] VITALS: BP 104/55
== END 2019-08-10 01:49 | disposition home or self-care (01) ==
LOC: ER 15:29
DX: T40.2X2A Poisoning by other opioids, intentional self-harm, initial encounter (principal); I95.9 Hypotension, unspecified; J96.22 Acute and chronic respiratory failure with hypercapnia; J44.9 Chronic obstructive pulmonary disease, unspecified; I42.9 Cardiomyopathy, unspecified; F11.20 Opioid dependence, uncomplicated; I11.0 Hypertensive heart disease with heart failure; I50.32 Chronic diastolic (congestive) heart failure; R53.83 Other fatigue; I25.2 Old myocardial infarction; Z99.81 Dependence on supplemental oxygen; Z79.899 Other long term (current) drug therapy; Z79.51 Long term (current) use of inhaled steroids; Z95.5 Presence of coronary angioplasty implant and graft
CPT/HCPCS: 93005; 99291; 96361; 96374; 96375; 36415; 82553; 82803; 82550; 85025; 80053; 81001; 84484; 83880; 71045; 93010; 36600; J1885; J2270; J2310; J7040

== ENCOUNTER 2019-10-20 14:21 | Emergency (ER) | payer BC, MEDICARE ==
--- NOTE | 2019-10-20 14:45 | ER Document Report ---
ED Medical Screen (RME) - General Chief Complaint: Shortness Of Breath Stated Complaint: COUGH,SHORT OF BREATH Time Seen by Provider: 10/20/19 14:40 Primary Care Provider: YAA NESS MD [Primary Care Provider] - Follow up as needed Notes: Interview done via telephone. Spraying latex paint inside the house 5 days ago - was not wearing mask, hx. COPD/CHF, on O2 2.5 LNC, wears only at night but has needed it constantly since . States without oxygen his oxygen drops into the 50's. No fever. + cough. No sick contacts. TRAVEL OUTSIDE OF THE [place] IN LAST 30 DAYS: No - Related Data Allergies/Adverse Reactions: No Known Allergies Allergy (Verified 08/09/19 15:48) Past Medical History - Past Medical History Cardiac Medical History: Reports: Hx Congestive Heart Failure, Hx DVT, Hx Heart Attack - and stent, Hx Hypercholesterolemia, Hx Hypertension, Hx Pulmonary Embolism Pulmonary Medical History: Reports: Hx Bronchitis, Hx COPD, Hx Sleep Apnea Denies: Hx Asthma, Hx Pneumonia, Hx Tuberculosis Neurological Medical History: Denies: Hx Seizures, Hx Parkinson's Disease Renal/ Medical History: Denies: Hx Benign Prostatic Hyperplasia, Hx End Stage Renal Disease, Hx Kidney Stones, Hx Peritoneal Dialysis GI Medical History: Denies: Hx Cirrhosis, Hx Gastroesophageal Reflux Disease, Hx Ulcer Musculoskeltal Medical History: Reports Hx Arthritis, Denies Hx Multiple Sclerosis Psychiatric Medical History: Denies: Hx Bipolar Disorder, Hx Depression, Hx Schizophrenia Past Surgical History: Reports: Hx Cholecystectomy, Hx Orthopedic Surgery - carpel tunnel,neck, ORIF right wrist - Immunizations Immunizations up to date: Yes Hx Diphtheria, Pertussis, Tetanus Vaccination: Yes Course - Re-evaluation Re-evalutation: 10/20/19 14:45 I did a telephone interview with the patient to go ahead and initiate orders. Will place these orders. I have greeted and performed a rapid initial assessment of this patient. A comprehensive ED assessment and evaluation of the patient, analysis of test results and completion of the medical decision making process will be conducted by additional ED providers. Doctor's Discharge - Discharge Referrals: YAA NESS MD [Primary Care Provider] - Follow up as needed
[2019-10-20] MEDS ORDERED: IPRATROPIUM/ALBUTEROL 0.5-2.5 MG/3 ML AMPUL NEB ONE ×2 (16:59→18:57)
[2019-10-20] MEDS ORDERED: METHYLPREDNISOLONE INJ 125 MG/2 ML SDV IV ONE (16:59)
--- NOTE | 2019-10-20 17:10 | ER Document Report ---
Entered by LORI WARNER SCRIBE 10/20/19 2846 Acting as scribe for:SHAYY MORA MD ED Respiratory Problem - General Chief Complaint: Shortness Of Breath Stated Complaint: COUGH,SHORT OF BREATH Time Seen by Provider: 10/20/19 14:40 Primary Care Provider: YAA NESS MD [Primary Care Provider] - Follow up as needed Mode of Arrival: Ambulatory Information source: Patient Notes: This 68-year-old male patient presents to the emergency department today with complaints of shortness of breath with a productive cough. Patient states his sputum ranges in color from green, yellow, to sometimes white. Patient mentions that he spray painted his house with latex paint and was not using a mask and he noticed that his shortness of breath seemed to get bad after this. He is on 5 mg of prednisone 3 times daily(for COPD and rheumatoid arthritis) and is usually on 2-1/2 L of oxygen only at night. He has been having to use oxygen contin uously for the last 5 days. He has not had any fevers. The patient recently completed a 7-day course of Keflex 500mg TID that started on 10/09/2019. He was also put on a seven-day course of Keflex on 09/08/2019. Both of these prescriptions were to treat a cellulitis in his left leg, he states that the medication did not help and it is getting worse. The patient is supposed to be receiving monthly infusions for his rheumatoid arthritis, but missed last month and the one doing a few days will also have to be missed due to the cellulitis in his legs. TRAVEL OUTSIDE OF THE [place] IN LAST 30 DAYS: No - Related Data Allergies/Adverse Reactions: No Known Allergies Allergy (Verified 10/20/19 16:49) Past Medical History - General Information source: Patient - Social History Smoking Status: Former Smoker Cigarette use (# per day): No Chew tobacco use (# tins/day): No Smoking Education Provided: No Frequency of alcohol use: None Drug Abuse: None Lives with: Family Family History: Reviewed & Not Pertinent, Arthritis, DM, Other Patient has suicidal ideation: No Patient has homicidal ideation: No - Past Medical History Cardiac Medical History: Reports: Hx Congestive Heart Failure, Hx Coronary Artery Disease, Hx DVT, Hx Heart Attack - w/ stent placement in 1999, Hx Hypercholesterolemia, Hx Hypertension, Hx Pulmonary Embolism Pulmonary Medical History: Reports: Hx Bronchitis, Hx COPD, Hx Sleep Apnea Musculoskeletal Medical History: Reports Hx Arthritis - Rheumatoid arthritis Past Surgical History: Reports: Hx Cardiac Catheterization, Hx Cholecystectomy, Hx Coronary Stent, Hx Orthopedic Surgery - carpel tunnel,neck, ORIF right wrist, Hx Vascular Surgery - [place] filter - Immunizations Immunizations up to date: Yes Hx Diphtheria, Pertussis, Tetanus Vaccination: Yes Hx Pneumococcal Vaccination: 02/05/13 Review of Systems - Review of Systems Constitutional: No symptoms reported EENT: No symptoms reported Cardiovascular: No symptoms reported Respiratory: See HPI, Cough, Short of breath, Sputum, Wheezing Gastrointestinal: No symptoms reported Genitourinary: No symptoms reported Male Genitourinary: No symptoms reported Musculoskeletal: Joint pain Skin: No symptoms reported Hematologic/Lymphatic: No symptoms reported Neurological/Psychological: No symptoms reported -: Yes All other systems reviewed and negative Physical Exam - Vital signs Vitals: Temp Pulse Resp BP Pulse Ox 98.6 F 87 24 H 126/69 H 93 10/20/19 15:33 10/20/19 15:33 10/20/19 15:33 10/20/19 15:33 10/20/19 15:33 - Notes Notes: Physical Exam: General: Alert, appears short of breath. HEENT: Normocephalic. Atraumatic. PERRL. Extraocular movements intact. Oropharynx clear. Neck: Supple. Non-tender. Respiratory: Mild respiratory distress. Wheezing and rhonchi bilaterally. Tachypneic. Accessory muscle usage. Cardiovascular: Regular rate and rhythm. Abdominal: Normal Inspection. Non-tender. No distension. Normal Bowel Sounds. Back: No gross abnormalities. Upper extremities: Unremarkable. Lower extremities: Left lower extremity has 2 eroded scabbed appearing lesions on the medial tibial surface with surrounding erythema and some erythema to the leg. The leg has 1+ pitting edema. Right lower extremity has 1 healing skin abrasion on the mid leg lateral anterior tibial region with surrounding erythema and 1+ edema to the leg. Patient reports that those wounds on the legs came from him bumping things when he was working. Neurological: Normal cognition. AAOx4. Normal speech. Psychological: Normal affect. Normal Mood. Skin: Warm. Dry. Normal color. Course - Re-evaluation Re-evalutation: 10/20/19 18:12 The patient has had a DuoNeb, has had the magnesium infusing, and has had the Solu-Medrol. He is on an albuterol treatment now and is nearly finished. Is breath sounds show better air movement causing his wheezes and rhonchi to be a little louder now. He states he cannot really tell a difference in his breathing. I am waiting for the ABG to be collected at this time. 10/20/19 19:20 Patient's ABG on 2 L nasal cannula shows pH 7.43, PCO2 59.6, PO2 of 89.6 with O2 saturation 96.8%. The serum CO2 is 39, not much changed from previous. The white blood cell count is not elevated. The patient has nebulizers, inhalers, and oxygen at home. I will plan to increase his prednisone dosing for the next several days. Start him on doxycycline which should be good coverage for his productive cough/COPD exacerbation, and the cellulitis in his legs that did not respond to Keflex previously. 10/20/19 19:25 The patient was evaluated during the global COVID-19 pandemic and that diagnosis was suspected/considered upon their initial presentation. Their evaluation, treatment and testing was consistent with current guidelines for patients who present with complaints or symptoms that may be related to COVID-19. - Vital Signs Vital signs: Temp Pulse Resp BP Pulse Ox 98.6 F 87 24 H 126/69 H 93 10/20/19 16:38 10/20/19 15:33 10/20/19 15:33 10/20/19 15:33 10/20/19 15:33 - Laboratory Result Diagrams: 10/20/19 17:52 10/20/19 17:06 Laboratory results interpreted by me: 10/20/19 10/20/19 10/20/19 17:06 17:06 17:52 RBC 4.28 L Hgb 12.8 L RDW 18.9 H Lymph % (Auto) 11.7 L Carbonic Acid ABG pCO2 ABG HCO3 ABG Total CO2 Sodium 135.4 L Chloride 89 L Carbon Dioxide 39 H NT-Pro-B Natriuret Pep 1520 H Total Protein 6.0 L 10/20/19 18:27 RBC Hgb RDW Lymph % (Auto) Carbonic Acid 1.79 H ABG pCO2 59.6 H ABG HCO3 38.4 H ABG Total CO2 40.2 H Sodium Chloride Carbon Dioxide NT-Pro-B Natriuret Pep Total Protein - Diagnostic Test Radiology reviewed: Image reviewed, Reports reviewed - Chest x-ray does not show acute process. There are hyperinflated lungs consistent with COPD. - EKG Interpretation by Me EKG shows normal: Sinus rhythm, [place], Intervals, ST-T Waves. abnormal: QRS Complexes - Old inferior wall [place] Rate: Normal - 74 Rhythm: NSR When compared to previous EKG there are: No significant change Discharge - Discharge Clinical Impression: COPD exacerbation, Cellulitis of both lower extremities Condition: Stable Disposition: HOME, SELF-CARE Additional Instructions: Cellulitis: You have an infection of your skin and underlying soft tissues called cellulitis. This is due to bacteria, which can enter through any break in the skin, or even through an irritated hair follicle. Untreated, cellulitis will usually worsen. Antibiotics are required. Usually, warm packs or warm soaks, and elevation of the infected area are recommended. You should start getting better within 24 to 36 hours. Most infections respond quickly to the right medication. Follow-up care is important, however, to check for abscess (boil) formation, unsuspected foreign body, or resistant infection. If you develop fever, chills, or if the area of infection is becoming ra pidly more swollen or painful, call the doctor at once. COPD Exacerbation: Stop your prednisone 5 mg 3 times daily dosing for now and start taking the prednisone as prescribed tomorrow for the next 5 days. Then you may resume your normal dosing of prednisone. Start taking the doxycycline tomorrow as prescribed. Elevate your legs to help reduce the swelling. Use your oxygen all the time for the next few days until your breathing has improved. Follow-up with your primary care provider sometime this week to recheck the cellulitis in your legs and to reevaluate your breathing. RETURN TO THE EMERGENCY ROOM IF ANY NEW OR WORSENING SYMPTOMS. Prescriptions: Prednisone [Deltasone 20 mg Tablet] 20 mg PO TID #15 tablet Doxycycline Hyclate 100 mg PO BID #20 tablet.dr Referrals: YAA NESS MD [Primary Care Provider] - Follow up in 3-5 days I personally performed the services described in the documentation, reviewed and edited the documentation which was dictated to the scribe in my presence, and it accurately records my words and actions.
[2019-10-20 17:34] LABS: INTERNATIONAL RATION (INR) 1.04; PROTHROMBIN TIME 13.8 SEC (11.4-15.4)
--- NOTE | 2019-10-20 17:34 | RADIOLOGY REPORT (SQ) ---
EXAM DESCRIPTION: CHEST SINGLE VIEW IMAGES COMPLETED DATE/TIME: 10/20/2019 3:52 pm REASON FOR STUDY: Shortness of breath COMPARISON: 08/09/2019 EXAM PARAMETERS: NUMBER OF VIEWS: One view. TECHNIQUE: Single frontal radiographic view of the chest acquired. RADIATION DOSE: NA LIMITATIONS: None. FINDINGS: LUNGS AND PLEURA: Lungs are hyperinflated. Right peripheral pleural and parenchymal scarr ing is stable. No focal consolidation or pleural effusion. No pneumothorax. MEDIASTINUM AND HILAR STRUCTURES: No masses. Contour normal. HEART AND VASCULAR STRUCTURES: Heart normal in size. Normal vasculature. BONES: No acute findings. HARDWARE: None in the chest. OTHER: No other significant finding. IMPRESSION: No acute cardiopulmonary disease. Hyperinflated lungs which can be seen with obstructiv e lung disease. TECHNICAL DOCUMENTATION: JOB ID: [id number] 2010 [employer]- All Rights Reserved Reading location - IP/workstation name: [email or web address]
[2019-10-20 17:38] LABS: ALBUMIN 3.5 g/dL (3.5-5.0); ALKALINE PHOSPHATASE 83 U/L (38-126); ASPARTATE AMINO TRANSFERASE 32 U/L (17-59); BILIRUBIN,DIRECT 0.3 mg/dL (0.0-0.4); BILIRUBIN,TOTAL 0.7 mg/dL (0.2-1.3); BLOOD UREA NITROGEN 11 mg/dL (7-20); CALCIUM 8.5 mg/dL (8.4-10.2); CHLORIDE 89 mmol/L (98-107); CREATINE KINASE 80 U/L (55-170); GLUCOSE 82 mg/dL (75-110)
[2019-10-20] MEDS ORDERED: ALBUTEROL SULFATE 0.083% NEB 2.5 MG/3 ML AMPUL NEB ONE (17:49)
[2019-10-20 17:53] LABS: ANION GAP 7 (5-19); CARBON DIOXIDE 39 mmol/L (22-30)
[2019-10-20] MEDS: MAGNESIUM SULFATE/D5W 1 GM/100 ML RTUPB IV SCH ×2 (18:01→19:26)
[2019-10-20 18:19] LABS: TROPONIN I 0.066 ng/mL
[2019-10-20 18:20] LABS: ABSOLUTE EOSINOPHILS # (AUTO) 0.1 10^3/uL (0.0-0.6); ABSOLUTE LYMPHOCYTES (AUTO) 0.6 10^3/uL (0.5-4.7); ABSOLUTE MONOCYTES (AUTO) 0.6 10^3/uL (0.1-1.4); ABSOLUTE NEUT (AUTO) 3.7 10^3/uL (1.7-8.2); BASOPHILS % (AUTO) 0.6 % (0-2); HEMOGLOBIN 12.8 g/dL (13.5-17.0); LYMPHOCYTES % (AUTO) 11.7 % (13-45); MEAN CORPUSCULAR HGB CONC 33.7 g/dL (32.0-36.0); MEAN CORPUSCULAR VOLUME 89 fl (80-97); MONOCYTES % (AUTO) 12.8 % (3-13); PLATELET COUNT 221 10^3/uL (150-450); RED BLOOD COUNT 4.28 10^6/uL (4.35-5.55); RED CELL DISTRIBUTION WIDTH 18.9 % (11.5-14.0); SEGMENTED NEUTROPHILS % (AUTO) 73.9 % (42-78); TOTAL CELLS COUNTED % (AUTO) 100 %
[2019-10-20 18:46] LABS: ARTERIAL BLOOD BASE EXCESS 11.7 mmol/L; ARTERIAL BLOOD H2CO3 1.79 mmol/L (1.05-1.35); ARTERIAL BLOOD HCO3 38.4 mmol/L (20-24); ARTERIAL BLOOD O2 SATURATION 96.8 % (94-98); ARTERIAL BLOOD PCO2 59.6 mmHg (35-45); ARTERIAL BLOOD PH 7.43 (7.35-7.45); ARTERIAL BLOOD PO2 89.6 mmHg (80-100); ARTERIAL BLOOD TOTAL CO2 40.2 mmol/L (23-27)
[2019-10-20 18:47] LABS: ARTERIAL BLOOD FIO2 2L
[2019-10-20] MEDS ORDERED: PREDNISONE 20 MG TABLET PO ONE (19:17)
[2019-10-20] MEDS ORDERED: DOXYCYCLINE HYCLATE 100 MG TABLET PO ONE (19:17)
[2019-10-20 19:52] VITALS: BP 125/63
--- NOTE | 2019-10-20 21:46 | EKG REPORT ---
SEVERITY:- ABNORMAL ECG - SINUS RHYTHM PROBABLE INFERIOR INFARCT, AGE INDETERMINATE : Confirmed by: Gabriele Gonsalves 20-Oct-2019 21:45:10
== END 2019-10-20 19:53 | disposition home or self-care (01) ==
LOC: ER 14:21
DX: J44.1 Chronic obstructive pulmonary disease with (acute) exacerbation (principal); L03.116 Cellulitis of left lower limb; L03.115 Cellulitis of right lower limb; Z20.828 Contact with and (suspected) exposure to other viral communicable diseases; I50.9 Heart failure, unspecified; I25.2 Old myocardial infarction; E78.00 Pure hypercholesterolemia, unspecified; I11.0 Hypertensive heart disease with heart failure
CPT/HCPCS: 93005; 94640 ×2; 99285; 96375; 96365; 36415; 87070; 87205; 82803; 82550; 83735; 85025; 85610; 80053; 84484; 83880; 71045; 93010; A9270 ×3; J2930; J3475; 87077; J7512; J7613

== ENCOUNTER 2019-11-03 10:59 | Inpatient (IN) | payer MEDICARE ==
--- NOTE | 2019-11-03 12:16 | RADIOLOGY REPORT (SQ) ---
EXAM DESCRIPTION: CHEST SINGLE VIEW IMAGES COMPLETED DATE/TIME: 11/03/2019 12:03 pm REASON FOR STUDY: shortness of breath COMPARISON: 10/20/2019 EXAM PARAMETERS: NUMBER OF VIEWS: One view. TECHNIQUE: Single frontal radiographic view of the chest acquired. RADIATION DOSE: NA LIMITATIONS: None. FINDINGS: LUNGS AND PLEURA: Low lung volumes. There is ill-defined opacification in the left base a nd the left hemidiaphragm is slightly indistinct. MEDIASTINUM AND HILAR STRUCTURES: No masses. Contour normal. HEART AND VASCULAR STRUCTURES: Cardiomegaly, no doubt accentuated by the low lung volumes. No mina pulmonary edema. BONES: No acute findings. HARDWARE: None in the chest. OTHER: No other significant finding. IMPRESSION: Cardiomegaly without mina pulmonary edema. Cannot exclude a limited left lower lobe pn eumonia. TECHNICAL DOCUMENTATION: JOB ID: [id number] 2010 [employer]- All Rights Reserved Reading location - IP/workstation name: [email or web address]
[2019-11-03] MEDS ORDERED: CEFEPIME INJ 1 GM VIAL IM ONE (12:29)
[2019-11-03] MEDS ORDERED: VANCOMYCIN HCL INJ 1000 MG VIAL IV ONE (12:29)
[2019-11-03] MEDS ORDERED: NORMAL SALINE 1000 ML 1,000 ML IV ONE (12:32)
--- NOTE | 2019-11-03 13:18 | EKG REPORT ---
SEVERITY:- ABNORMAL ECG - SINUS TACHYCARDIA PROBABLE INFERIOR INFARCT, AGE INDETERMINATE NONSPECIFIC T ABNORMALITIES, ANT-LAT LEADS : Confirmed by: Vimal Elizabeth MD 03-Nov-2019 13:17:40
[2019-11-03 13:21] LABS: VENOUS BLOOD BASE EXCESS 12.3 mmol/L; VENOUS BLOOD HCO3 43.8 mmol/L (20-32); VENOUS BLOOD PH 7.26 (7.30-7.42)
[2019-11-03 13:22] LABS: VENOUS BLOOD PCO2 99.3 mmHg (35-63)
[2019-11-03 13:28] LABS: ABSOLUTE EOSINOPHILS # (AUTO) 0.1 10^3/uL (0.0-0.6); ABSOLUTE LYMPHOCYTES (AUTO) 0.4 10^3/uL (0.5-4.7); ABSOLUTE MONOCYTES (AUTO) 0.8 10^3/uL (0.1-1.4); TOTAL CELLS COUNTED % (AUTO) 100 %
[2019-11-03 13:34] LABS: ABSOLUTE NEUT (AUTO) 5.6 10^3/uL (1.7-8.2); BASOPHILS % (AUTO) 0.4 % (0-2); EOSINOPHILS % (AUTO) 0.9 % (0-6); HEMATOCRIT 38.7 % (37.9-51.0); HEMOGLOBIN 13.2 g/dL (13.5-17.0); LYMPHOCYTES % (AUTO) 6.5 % (13-45); MEAN CORPUSCULAR HEMOGLOBIN 30.1 pg (27.0-33.4); MEAN CORPUSCULAR HGB CONC 34.1 g/dL (32.0-36.0); MEAN CORPUSCULAR VOLUME 88 fl (80-97); PLATELET COUNT 215 10^3/uL (150-450); SEGMENTED NEUTROPHILS % (AUTO) 81.2 % (42-78); WHITE BLOOD COUNT 6.9 10^3/uL (4.0-10.5)
[2019-11-03] MEDS ORDERED: ACETAMINOPHEN 325 MG TABLET PO ONE (13:41)
[2019-11-03 13:48] LABS: ALBUMIN 3.4 g/dL (3.5-5.0); ALKALINE PHOSPHATASE 90 U/L (38-126); ASPARTATE AMINO TRANSFERASE 57 U/L (17-59); BILIRUBIN,DIRECT 0.4 mg/dL (0.0-0.4); BILIRUBIN,TOTAL 0.8 mg/dL (0.2-1.3); BLOOD UREA NITROGEN 17 mg/dL (7-20); CALCIUM 8.3 mg/dL (8.4-10.2); CHLORIDE 85 mmol/L (98-107); GLUCOSE 98 mg/dL (75-110); POTASSIUM 3.6 mmol/L (3.6-5.0)
[2019-11-03 14:09] LABS: ANION GAP 10 (5-19); CARBON DIOXIDE 38 mmol/L (22-30)
[2019-11-03 14:30] LABS: APPEARANCE,URINE CLEAR; BILIRUBIN,URINE NEGATIVE (NEGATIVE); COLOR,URINE YELLOW; GLUCOSE, URINE NEGATIVE (NEGATIVE); KETONES,URINE NEGATIVE (NEGATIVE); LEUKOCYTE ESTERASE,URINE NEGATIVE (NEGATIVE); NITRITE,URINE NEGATIVE (NEGATIVE); PROTEIN,URINE NEGATIVE (NEGATIVE); URINE SPECIFIC GRAVITY 1.011; UROBILINOGEN,URINE NEGATIVE mg/dL (<2.0)
--- NOTE | 2019-11-03 14:56 | ER Document Report ---
ED Dizziness/Weakness - General Chief Complaint: Weakness Stated Complaint: WEAKNESS Time Seen by Provider: 11/03/19 12:12 Mode of Arrival: Medic Information source: Patient TRAVEL OUTSIDE OF THE [place] IN LAST 30 DAYS: No - HPI Notes: Patient presents with complaints of being "shaky" and weak. He states he is had this for about 2 days. He denies feeling short of breath. He denies any new cough or cold symptoms. Says he did not know of any fevers. No vomiting or diarrhea. He says he has had some constipation. He denies of any known COVID virus exposures. He states he does wear home oxygen. He states he wears 3 L at night but no oxygen during the day. He says he used to be a smoker but no longer uses tobacco. Patient states he does have a history of COPD. H weakness has been constant. It is worse with exertion and better with rest. It radiates throughout his body. It is been moderate in intensity. - Related Data Allergies/Adverse Reactions: No Known Allergies Allergy (Verified 10/20/19 16:49) Past Medical History - General Information source: Patient - Social History Smoking Status: Former Smoker Frequency of alcohol use: None Drug Abuse: None Family History: Reviewed & Not Pertinent, Arthritis, DM, Other - Past Medical History Cardiac Medical History: Reports: Hx Congestive Heart Failure, Hx Coronary Artery Disease, Hx DVT, Hx Heart Attack - w/ stent placement in 1999, Hx Hypercholesterolemia, Hx Hypertension, Hx Pulmonary Embolism Pulmonary Medical History: Reports: Hx Bronchitis, Hx COPD, Hx Sleep Apnea Denies: Hx Asthma, Hx Pneumonia, Hx Tuberculosis Neurological Medical History: Denies: Hx Seizures, Hx Parkinson's Disease Renal/ Medical History: Denies: Hx Benign Prostatic Hyperplasia, Hx End Stage Renal Disease, Hx Kidney Stones, Hx Peritoneal Dialysis GI Medical History: Denies: Hx Cirrhosis, Hx Gastroesophageal Reflux Disease, Hx Ulcer Musculoskeletal Medical History: Reports Hx Arthritis - Rheumatoid arthritis, Denies Hx Multiple Sclerosis Psychiatric Medical History: Denies: Hx Bipolar Disorder, Hx Depression, Hx Schizophrenia Past Surgical History: Reports: Hx Cardiac Catheterization, Hx Cholecystectomy, Hx Coronary Stent, Hx Orthopedic Surgery - carpel tunnel,neck, ORIF right wrist, Hx Vascular Surgery - [place] filter - Immunizations Immunizations up to date: Yes Hx Diphtheria, Pertussis, Tetanus Vaccination: Yes Hx Pneumococcal Vaccination: 02/05/13 Review of Systems - Review of Systems Constitutional: Chills, Malaise, Weakness Cardiovascular: denies: Chest pain, Palpitations Respiratory: denies: Cough, Short of breath -: Yes All other systems reviewed and negative Physical Exam - Vital signs Vitals: Pulse Ox 92 11/03/19 11:26 Interpretation: Tachycardic, Febrile - General General appearance: Appears well, Alert - HEENT Head: Normocephalic, Atraumatic Eyes: Normal Pupils: PERRL - Respiratory Respiratory status: No respiratory distress Chest status: Nontender Breath sounds: Decreased air movement Chest palpation: Normal - Cardiovascular Rhythm: Extrasystoles Heart sounds: Normal auscultation Murmur: No - Abdominal Inspection: Normal Distension: No distension Bowel sounds: Normal Tenderness: Nontender Organomegaly: No organomegaly - Back Back: Normal, Nontender - Extremities General upper extremity: Normal inspection, Nontender, Normal color, Normal ROM, Normal temperature General lower extremity: Normal inspection, Nontender, Normal color, Normal ROM, Normal temperature, Normal weight bearing. No: Shanta's sign - Neurological Neuro grossly intact: Yes Cognition: Confused Orientation: Disoriented to time [place] Coma Scale Eye Opening: Spontaneous [place] Coma Scale Verbal: Confused [place] Coma Scale Motor: Obeys Commands [place] Coma Scale Total: 14 Speech: Normal Motor strength normal: LUE, RUE, LLE, RLE Sensory: Normal - Psychological Associated symptoms: Normal affect, Normal mood - Skin Skin Temperature: Warm Skin Moisture: Dry Skin Color: Other - Patient has a healing abrasion on the left anterior lower extremity that is tender to palpation. It does have surrounding blanching erythema consistent with early cellulitis. Course - Re-evaluation Re-evalutation: 11/03/19 14:53 Patient presents with fever as well as a questionable early infiltrate on x-ray. He also has a questionable early cellulitis on his left lower extremity. He has been started on antibiotics. A COVID test has been ordered. Although he denies any known exposures to COVID. He denies any GI symptoms and has no abdominal tenderness. Patient has an abnormal blood gas so BiPAP has been ordered at this time however he is in no distress and is not lethargic. The patient was evaluated during a global COVID-19 pandemic and that diagnosis was suspected/considered upon their initial presentation. Their evaluation, treatment and testing was consistent with current guidelines for patients who present with complaints or symptoms and may be related to COVID-19. - Vital Signs Vital signs: Temp Pulse Resp BP Pulse Ox 101.8 F H 104 H 26 H 121/53 L 88 L 11/03/19 13:48 11/03/19 11:40 11/03/19 14:00 11/03/19 11:40 11/03/19 14:00 - Laboratory Result Diagrams: 11/03/19 12:53 11/03/19 12:53 Laboratory results interpreted by me: 11/03/19 11/03/19 11/03/19 12:53 12:53 12:53 Hgb 13.2 L RDW 18.0 H Lymph % (Auto) 6.5 L Absolute Lymphs (auto) 0.4 L Seg Neutrophils % 81.2 H VBG pH 7.26 L VBG pCO2 99.3 H* VBG HCO3 43.8 H Sodium 132.7 L Chloride 85 L Carbon Dioxide 38 H Calcium 8.3 L Total Protein 6.0 L Albumin 3.4 L Urine Ascorbic Acid 11/03/19 14:02 Hgb RDW Lymph % (Auto) Absolute Lymphs (auto) Seg Neutrophils % VBG pH VBG pCO2 VBG HCO3 Sodium Chloride Carbon Dioxide Calcium Total Protein Albumin Urine Ascorbic Acid 40 H - Diagnostic Test Radiology reviewed: Image reviewed, Reports reviewed Discharge - Discharge Clinical Impression: Pneumonia Qualifiers: Pneumonia type: due to unspecified organism Laterality: left Lung location: lower lobe of lung Qualified Code(s): J18.9 - Pneumonia, unspecified organism COPD (chronic obstructive pulmonary disease) Qualifiers: COPD type: COPD with acute lower respiratory infection Qualified Code(s): J44.0 - Chronic obstructive pulmonary disease with (acute) lower respiratory infection Fever Qualifiers: Fever type: due to other condition Qualified Code(s): R50.81 - Fever presenting with conditions classified elsewhere Condition: Serious Disposition: ADMITTED INPATIENT Admitting Provider: Keo (Hospitalist) Unit Admitted: [facility]
[2019-11-03] MEDS ORDERED: ONDANSETRON 4 MG TAB.RAPDIS PO PRN (18:10)
[2019-11-03] MEDS ORDERED: ACETAMINOPHEN 325 MG TABLET PO PRN (18:10)
[2019-11-03] MEDS ORDERED: ONDANSETRON HCL INJ/PF 4 MG/2 ML SDV IV PRN (18:10)
[2019-11-03] MEDS ORDERED: MORPHINE SULFATE IR 30 MG TABLET PO SCH (18:30)
--- NOTE | 2019-11-03 18:38 | PDOC H&P ---
History of Present Illness Admission Date/PCP: 11/03/19 15:19 History of Present Illness: SERGIO YAÑEZ is a 69 year old male with past medical history significant for stage II diastolic CHF, COPD, rheumatoid arthritis, RACHELLE, history of DVT, narcotic dependency, chronic hypoxemic and hypercarbic respiratory failure who presents with a 2-day history of progressive shortness of breath/dyspnea on exertion/generalized fatigue and weakness. Chest x-ray showed multifocal pneumonia and patient had a fever of over 101 on admission. Patient also has a left lower extremity wound with cellulitis and the wound is been dressed by ED nursing. Patient denies any coronavirus contacts however he has been tested for coronavirus and will be in the coronavirus unit while this test is pending. Patient is not on continuous home oxygen but does use 3 L nightly at home along with his CPAP. Patient states his current respiratory failure this admission feels like a severe COPD exacerbation but also feels different and also like he has an infection such as a pneumonia. Patient started on cefepime and azithromycin based on previous sputum cultures that have grown Pseudomonas and E. coli. Admitted to [facility] coronavirus unit. Appropriate vitamins/supplements started. Past Medical History Cardiac Medical History: Reports: Congestive Heart Failure, Coronary Artery Disease, DVT, Myocardial Infarction - w/ stent placement in 1999, Hyperlipidema, Hypertension, Pulmonary Embolism Pulmonary Medical History: Reports: Bronchitis, Chronic Obstructive Pulmonary Disease (COPD), Sleep Apnea Denies: Asthma, Pneumonia, Tuberculosis Neurological Medical History: Denies: Seizures Renal/ Medical History: Denies: End Stage Renal Disease GI Medical History: Denies: Cirrhosis, Gastroesophageal Reflux Disease Musculoskeltal Medical History: Reports: Arthritis - Rheumatoid arthritis Psychiatric Medical History: Denies: Bipolar Disorder, Depression Hematology: Denies: Anemia, Bleeding Tendencies Past Surgical History Past Surgical History: Reports: Cardiac Catheterization, Cholecystectomy, Coronary Stent, Orthopedic Surgery - carpel tunnel,neck, ORIF right wrist, Vascular Surgery - [place] filter Social History Information Source: Patient, Emergency Med Personnel Smoking Status: Former Smoker Frequency of Alcohol Use: None Hx Recreational Drug Use: No Drugs: None Hx Prescription Drug Abuse: No - Advance Directive Resuscitation Status: Full Code Surrogate healthcare decision maker:: , [place] Family History Family History: Reviewed & Not Pertinent, Arthritis, DM, Other Parental Family History Reviewed: Yes Children Family History Reviewed: Yes Sibling(s) Family History Reviewed.: Yes Medication/Allergy Home Medications: Albuterol Sulfate [Proair Hfa Inhalation Aerosol 8.5 gm Mdi] 1 - 2 puff IH Q6 PRN 08/09/19 Aspirin [Ecotrin 81 mg EC Tablet] 81 mg PO DAILY 08/09/19 Atorvastatin Calcium [Lipitor 40 mg Tablet] 40 mg PO QHS 08/09/19 Budesonide/Formoterol Fumarate [Symbicort Hfa 80-4.5 Mcg Inhaler 6.9 gm] 2 puff IH BID 08/09/19 Ferrous Sulfate [Feosol 325 mg Tablet] 325 mg PO BID 08/09/19 Folic Acid 1 mg PO DAILY 08/09/19 Furosemide [Lasix 40 mg Tablet] 40 mg PO BID 08/09/19 Gabapentin 800 mg PO TID 08/09/19 Magnesium Oxide 800 mg PO BID 08/09/19 Methotrexate Sodium [Rheumatrex 2.5 mg Tablet] 2.5 mg PO Q7D 08/09/19 Metoprolol Succinate [Toprol Xl 25 mg Tab.sr] 25 mg PO DAILY 08/09/19 Morphine Sulfate [Morphine Ir 15 Mg Tablet] 15 mg PO Q6H 08/09/19 Morphine Sulfate [Morphine Ir 30 mg Tablet] 30 mg PO Q12H 08/09/19 Moxifloxacin HCl 400 mg PO DAILY 08/09/19 Multivitamin [Multivitamins] 1 each PO DAILY 08/09/19 Nitroglycerin 0.4 mg SL ASDIR PRN 08/09/19 Omeprazole 20 mg PO BID 08/09/19 Pramipexole Di-HCl [Mirapex] 1 mg PO TID 08/09/19 Prednisone [Deltasone 5 mg Tablet] 15 mg PO QAM 08/09/19 Tiotropium [place] [Spiriva Handihaler 5 Cap/Kit (18 Mcg/Cap)] 1 cap IH DAILY 08/09/19 Valsartan 80 mg PO DAILY 08/09/19 Warfarin Sodium 2.5 mg PO DAILY 08/09/19 Metoprolol Succinate [Toprol Xl 25 mg Tab.sr] 12.5 mg PO DAILY #15 tab.sr.24h 08/10/19 Valsartan 40 mg PO DAILY #15 tablet 08/10/19 Doxycycline Hyclate 100 mg PO BID #20 tablet. 10/20/19 Prednisone [Deltasone 20 mg Tablet] 20 mg PO TID #15 tablet 10/20/19 Allergies/Adverse Reactions: No Known Allergies Allergy (Verified 10/20/19 16:49) Review of Systems All systems: reviewed and no additional remarkable complaints except as stated - Review of systems per HPI, otherwise negative Physical Exam Vital Signs: Temp Pulse Resp BP Pulse Ox 101.8 F H 104 H 17 105/59 L 96 11/03/19 13:48 11/03/19 11:40 11/03/19 16:01 11/03/19 16:01 11/03/19 16:01 Intake & Output 11/02/19 11/03/19 11/04/19 06:59 06:59 06:59 Intake Total 1000 Balance 1000 Weight 69.4 kg General appearance: PRESENT: no acute distress, well-developed, well-nourished Head exam: PRESENT: atraumatic, normocephalic Eye exam: PRESENT: conjunctiva pink. ABSENT: scleral icterus Mouth exam: PRESENT: moist Respiratory exam: PRESENT: decreased breath sounds, rales - Scant bilateral, wheezes. ABSENT: rhonchi Cardiovascular exam: PRESENT: RRR. ABSENT: diastolic murmur, rubs, systolic murmur GI/Abdominal exam: PRESENT: normal bowel sounds, soft. ABSENT: distended, guarding, mass, organolmegaly, rebound, tenderness Rectal exam: PRESENT: deferred Extremities exam: ABSENT: pedal edema Neurological exam: PRESENT: alert, awake, oriented to person, oriented to place, oriented to time, oriented to situation Psychiatric exam: PRESENT: appropriate affect, normal mood Skin exam: PRESENT: dry, warm, other - Left lower extremity wound Results Laboratory Results: 11/03/19 12:53 11/03/19 12:53 11/03/19 11/03/19 11/03/19 12:53 12:53 12:53 WBC 6.9 RBC 4.40 Hgb 13.2 L Hct 38.7 MCV 88 MCH 30.1 MCHC 34.1 RDW 18.0 H Plt Count 215 Seg Neutrophils % 81.2 H VBG pH 7.26 L VBG pCO2 99.3 H* VBG HCO3 43.8 H VBG Base Excess 12.3 Sodium 132.7 L Potassium 3.6 Chloride 85 L Carbon Dioxide 38 H Anion Gap 10 BUN 17 Creatinine 0.74 Est GFR ( Amer) > 60 Glucose 98 Lactic Acid Calcium 8.3 L Total Bilirubin 0.8 AST 57 Alkaline Phosphatase 90 Total Protein 6.0 L Albumin 3.4 L Urine Color Urine Appearance Urine pH Ur Specific [place] Urine Protein Urine Glucose (UA) Urine Ketones Urine Blood Urine Nitrite Ur Leukocyte Esterase Urine WBC (Auto) Urine RBC (Auto) 11/03/19 11/03/19 11/03/19 12:53 14:02 15:43 WBC RBC Hgb Hct MCV MCH MCHC RDW Plt Count Seg Neutrophils % VBG pH VBG pCO2 VBG HCO3 VBG Base Excess Sodium Potassium Chloride Carbon Dioxide Anion Gap BUN Creatinine Est GFR ( Amer) Glucose Lactic Acid 0.9 0.6 L Calcium Total Bilirubin AST Alkaline Phosphatase Total Protein Albumin Urine Color YELLOW Urine Appearance CLEAR Urine pH 5.0 Ur Specific [place] 1.011 Urine Protein NEGATIVE Urine Glucose (UA) NEGATIVE Urine Ketones NEGATIVE Urine Blood NEGATIVE Urine Nitrite NEGATIVE Ur Leukocyte Esterase NEGATIVE Urine WBC (Auto) 0 Urine RBC (Auto) 0 11/03/19 12:53 Troponin I 0.034 Impressions: Chest X-Ray 11/03/19 11:09 IMPRESSION: Cardiomegaly without mina pulmonary edema. Cannot exclude a limited left lower lobe pneumonia. Assessment and Plan - Diagnosis (1) Multifocal pneumonia Is this a current diagnosis for this admission?: Yes Plan: Possible coronavirus infection, COVID-19 test pending, admitted to isolation IMCU Cefepime/azithromycin Blood culture Sputum culture Nebulizer as needed Supplemental oxygen to maintain at least 89% and no more than 94% in the setting of COPD and RACHELLE Hold IV fluids in the setting of diastolic CHF (2) Suspected 2019 novel coronavirus infection Is this a current diagnosis for this admission?: Yes Plan: Cover testing pending Admitted to isolation unit Appropriate supplements started on admission (3) Chronic steroid use Is this a current diagnosis for this admission?: Yes Plan: Takes prednisone daily at home for RA and COPD Hold prednisone and give Solu-Medrol instead (4) Rheumatoid arthritis Is this a current diagnosis for this admission?: Yes Plan: Steroids continued Hold methotrexate in the setting of active pneumonia (5) Obstructive sleep apnea Is this a current diagnosis for this admission?: Yes Plan: CPAP nightly (6) Acute and chronic respiratory failure with hypercapnia Is this a current diagnosis for this admission?: Yes Plan: Multifactorial: COPD, CHF, multifocal pneumonia Treat underlying cause Wears 3 L nasal cannula nightly at home prior to admission BiPAP on admission (7) Opiate dependence, continuous Is this a current diagnosis for this admission?: Yes Plan: Continue home narcotics (8) Diastolic dysfunction with chronic heart failure Is this a current diagnosis for this admission?: Yes Plan: Possible exacerbation likely brought on by COPD and pneumonia Continue Lasix and cardiac meds (9) COPD exacerbation Is this a current diagnosis for this admission?: Yes Plan: Steroids Nebulizer treatments Inhalers Antibiotics (10) Coronary artery disease Is this a current diagnosis for this admission?: Yes Plan: Cardiac meds restarted - Time Time Spent with patient: 35 or more minutes Medications reviewed and adjusted accordingly: Yes Anticipated Discharge Disposition: Home with Home Health Anticipated Discharge Timeframe: within 72 hours - Inpatient Certification Based on my medical assessment, after consideration of the patient's comor bidities, presenting symptoms, or acuity I expect that the services needed warrant INPATIENT care.: Yes I certify that my determination is in accordance with my understanding of Medicare's requirements for reasonable and necessary INPATIENT services [42 CFR 412.3e].: Yes Medical Necessity: Significant Comorbidiites Make Outpatient Treatment Too Risky, Need Close Monitoring Due to Risk of Patient Decompensation, Need for IV Antibiotics, Risk of Complication if Not Cared For in Hospital, Risk of Diagnosis Which Will Require Inpatient Eval/Care/Monitoring
--- NOTE | 2019-11-03 18:39 | ADVANCED CARE ---
- Diagnosis (1) Multifocal pneumonia Diagnosis Current: Yes (2) Suspected 2019 novel coronavirus infection Diagnosis Current: Yes (3) Chronic steroid use Diagnosis Current: Yes (4) Rheumatoid arthritis Diagnosis Current: Yes (5) Obstructive sleep apnea Diagnosis Current: Yes (6) Acute and chronic respiratory failure with hypercapnia Diagnosis Current: Yes (7) Opiate dependence, continuous Diagnosis Current: Yes (8) Diastolic dysfunction with chronic heart failure Diagnosis Current: Yes (9) COPD exacerbation Diagnosis Current: Yes (10) Coronary artery disease Diagnosis Current: Yes Attendance: Patient Resuscitation Status: Full Code Discussion: All aspects of code status discussed with patient/POA including cardioversion, chest compressions, and intubation and the patient/POA indicated they wish to be full code MPOA is designated as: , [place] Time Spent: Greater than 16 minutes
[2019-11-03] MEDS ORDERED: AZITHROMYCIN INJ 500 MG VIAL IV ONE (20:54)
[2019-11-03] MEDS: METHYLPREDNISOLONE INJ 125 MG/2 ML SDV IV SCH (21:29)
[2019-11-03] MEDS: ATORVASTATIN CALCIUM 40 MG TABLET PO SCH (21:29)
[2019-11-03] MEDS: PANTOPRAZOLE SODIUM 20 MG TABLET.DR PO SCH (21:30)
[2019-11-03] MEDS: ENOXAPARIN SODIUM INJ 40 MG/0.4 ML DISP.SYRIN SUBCUT SCH (21:30)
[2019-11-03] MEDS: MELATONIN 5 MG TABLET PO SCH (21:30)
[2019-11-03] MEDS: AZITHROMYCIN 500 MG in DEXTROSE 5%-WATER 250 ML IV SCH (21:31)
[2019-11-03] MEDS: PRAMIPEXOLE DI-HCL 0.5 MG TABLET PO SCH (21:33)
[2019-11-03] MEDS ORDERED: CEFEPIME 2 GM/D5W RTU 2 GM/50 ML RTUPB IV SCH (22:00)
[2019-11-04] MEDS: CEFEPIME HCL 2 GM in DEXTROSE 5%-WATER 50 ML IV SCH ×3 (00:01→21:41)
[2019-11-04] MEDS: MORPHINE SULFATE IR 15 MG TABLET PO SCH ×4 (00:09→17:09)
[2019-11-04] MEDS: GABAPENTIN 400 MG CAPSULE PO SCH ×4 (00:09→21:42)
[2019-11-04 04:21] LABS: HEMATOCRIT 38.1 % (37.9-51.0); HEMOGLOBIN 12.9 g/dL (13.5-17.0); MEAN CORPUSCULAR HEMOGLOBIN 29.7 pg (27.0-33.4); MEAN CORPUSCULAR HGB CONC 33.8 g/dL (32.0-36.0); MEAN CORPUSCULAR VOLUME 88 fl (80-97); PLATELET COUNT 163 10^3/uL (150-450); RED BLOOD COUNT 4.34 10^6/uL (4.35-5.55); RED CELL DISTRIBUTION WIDTH 17.6 % (11.5-14.0); WHITE BLOOD COUNT 4.5 10^3/uL (4.0-10.5)
[2019-11-04 04:39] LABS: ANION GAP 5 (5-19); BLOOD UREA NITROGEN 16 mg/dL (7-20); CALCIUM 8.6 mg/dL (8.4-10.2); CARBON DIOXIDE 37 mmol/L (22-30); CHLORIDE 89 mmol/L (98-107); GLUCOSE 157 mg/dL (75-110); PHOSPHORUS 2.6 mg/dL (2.5-4.5); POTASSIUM 4.1 mmol/L (3.6-5.0)
[2019-11-04 05:45] LABS: ABSOLUTE LYMPHOCYTES# (MANUAL) 0.1 10^3/uL (0.5-4.7); ABSOLUTE MONOCYTES # (MANUAL) 0.1 10^3/uL (0.1-1.4); BASOPHILS % (MANUAL) 0 % (0-2); EOSINOPHILS % (MANUAL) 0 % (0-6); LYMPHOCYTES % (MANUAL) 3 % (13-45); MONOCYTES % (MANUAL) 2 % (3-13); SEGMENTED NEUTROPHILS % (MAN) 95 % (42-78); TOTAL CELLS COUNTED 100
[2019-11-04 05:46] LABS: ANISOCYTOSIS 1+; PLATELET COMMENT ADEQUATE
[2019-11-04] MEDS: METHYLPREDNISOLONE INJ 125 MG/2 ML SDV IV SCH ×3 (05:46→21:42)
[2019-11-04] MEDS: PRAMIPEXOLE DI-HCL 0.5 MG TABLET PO SCH ×3 (05:48→21:41)
[2019-11-04] MEDS ORDERED: PREDNISONE 5 MG TABLET PO SCH (08:00)
[2019-11-04] MEDS: FERROUS SULFATE 325 MG TABLET PO SCH ×2 (09:47→17:09)
[2019-11-04] MEDS: METOPROLOL SUCCINATE 25 MG TAB.SR.24H PO SCH (09:48)
[2019-11-04] MEDS: ZINC SULFATE 220 MG CAPSULE PO SCH (09:48)
[2019-11-04] MEDS: CHOLECALCIFEROL (D3) 1,000 UNIT (25 MCG) TABLET PO SCH (09:48)
[2019-11-04] MEDS: FUROSEMIDE 40 MG TABLET PO SCH ×2 (09:48→17:09)
[2019-11-04] MEDS: DOCUSATE SODIUM 100 MG CAPSULE PO SCH (09:49)
[2019-11-04] MEDS: ASCORBIC ACID 500 MG TABLET PO SCH ×2 (09:49→17:10)
[2019-11-04] MEDS: FOLIC ACID 1 MG TABLET PO SCH (09:49)
[2019-11-04] MEDS: ENOXAPARIN SODIUM INJ 40 MG/0.4 ML DISP.SYRIN SUBCUT SCH (09:49)
[2019-11-04] MEDS: PANTOPRAZOLE SODIUM 20 MG TABLET.DR PO SCH ×2 (09:49→21:42)
[2019-11-04] MEDS: ASPIRIN 81 MG TABLET, ENT COATED PO SCH (09:59)
[2019-11-04] MEDS: VALSARTAN 40 MG TABLET PO SCH (09:59)
[2019-11-04] MEDS ORDERED: PREDNISONE 20 MG TABLET PO SCH (10:00)
[2019-11-04] MEDS ORDERED: (PENDING PHARMACY ID) (Pramipexole Di-Hcl [Mirapex] 1 MG) PO SCH (10:00)
[2019-11-04] MEDS ORDERED: AZITHROMYCIN INJ 500 MG VIAL IV SCH (10:00)
[2019-11-04] MEDS ORDERED: CEFTRIAXONE 2 GM/D5W RTU 2 GM/50 ML RTUPB IV SCH (10:00)
[2019-11-04] MEDS: FLUTICASONE/VILANTEROL 100-25 MCG/DOSE IH SCH (10:00)
[2019-11-04] MEDS ORDERED: MAGNESIUM OXIDE 800 MG PO SCH (10:00)
[2019-11-04] MEDS ORDERED: (PENDING PHARMACY ID) (Tiotropium Bromide [Spiriva Handihaler 5 Cap/Kit (18 Mcg/Cap)] 1 CA IH SCH (10:00)
[2019-11-04] MEDS ORDERED: (PENDING PHARMACY ID) (Gabapentin [Gabapentin] 800 MG) PO SCH (10:00)
[2019-11-04] MEDS: UMECLIDINIUM BROMIDE 62.5 MCG/DOSE IH SCH (10:01)
--- NOTE | 2019-11-04 15:40 | PDOC PROGRESS REPORT ---
Subjective Subjective:: SERGIO YAÑEZ is a 69 year old male with past medical history significant for stage II diastolic CHF, COPD, rheumatoid arthritis, RACHELLE, history of DVT, narcotic dependency, chronic hypoxemic and hypercarbic respiratory failure who presents with a 2-day history of progressive shortness of breath/dyspnea on exertion/generalized fatigue and weakness. Chest x-ray showed multifocal pneumonia and patient had a fever of over 101 on admission. Patient also has a left lower extremity wound with cellulitis and the wound is been dressed by ED nursing. Patient denies any coronavirus contacts however he has been tested for coronavirus and will be in the coronavirus unit while this test is pending. Patient is not on continuous home oxygen but does use 3 L nightly at home along with his CPAP. Patient states his current respiratory failure this admission feels like a severe COPD exacerbation but also feels different and also like he has an infection such as a pneumonia. Patient started on cefepime and azithromycin based on previous sputum cultures that have grown Pseudomonas and E. coli. Admitted to [facility] coronavirus unit. Appropriate vitamins/supplements started. 11/04/2019 Patient has had some significant improvement since yesterday with appropriate treatment of his multifocal pneumonia, COPD exacerbation, and CHF. This does not seem to be the usual clinical course that we expect in the setting of COVID- 19 pneumonia. COVID-19 testing still pending however patient will need to remain in isolation unit until this is back. Blood culture and sputum culture are pending. Patient was titrated off BiPAP and is now on 3 L nasal cannula. He has no new complaints today. Reason For Visit: MULTIFOCAL PNEUMONIA, SUSPECTED COVID-19 INFECTION Physical Exam Vital Signs: Temp Pulse Resp BP Pulse Ox 97.6 F 72 21 H 107/51 L 97 11/04/19 12:00 11/04/19 12:00 11/04/19 12:00 11/04/19 12:00 11/04/19 12:00 Intake & Output 11/03/19 11/04/19 11/05/19 06:59 06:59 06:59 Intake Total 2059 750 Output Total 1500 Balance 2059 - Weight 71.2 kg Exam: General appearance: PRESENT: no acute distress, well-developed, well-nourished, states he feels much better today Head exam: PRESENT: atraumatic, normocephalic Eye exam: PRESENT: conjunctiva pink. ABSENT: scleral icterus Mouth exam: PRESENT: moist Respiratory exam: PRESENT: decreased breath sounds, minimal rales - Scant bilateral, wheezes. ABSENT: rhonchi Cardiovascular exam: PRESENT: RRR. ABSENT: diastolic murmur, rubs, systolic murmur GI/Abdominal exam: PRESENT: normal bowel sounds, soft. ABSENT: distended, guarding, mass, organolmegaly, rebound, tenderness Rectal exam: PRESENT: deferred Extremities exam: ABSENT: pedal edema Neurological exam: PRESENT: alert, awake, oriented to person, oriented to place, oriented to time, oriented to situation Psychiatric exam: PRESENT: appropriate affect, normal mood Skin exam: PRESENT: dry, warm, other - Left lower extremity wound Results Laboratory Results: 11/04/19 04:01 11/04/19 04:01 11/03/19 11/03/19 11/04/19 15:43 18:54 04:01 WBC 4.5 RBC 4.34 L Hgb 12.9 L Hct 38.1 MCV 88 MCH 29.7 MCHC 33.8 RDW 17.6 H Plt Count 163 Seg Neutrophils % Not Reportable Sodium Potassium Chloride Carbon Dioxide Anion Gap BUN Creatinine Est GFR ( Amer) Glucose Lactic Acid 0.6 L 1.1 Calcium Phosphorus Magnesium 11/04/19 04:01 WBC RBC Hgb Hct MCV MCH MCHC RDW Plt Count Seg Neutrophils % Sodium 130.9 L Potassium 4.1 Chloride 89 L Carbon Dioxide 37 H Anion Gap 5 BUN 16 Creatinine 0.55 Est GFR ( Amer) > 60 Glucose 157 H Lactic Acid Calcium 8.6 Phosphorus 2.6 Magnesium 1.7 11/03/19 12:53 Troponin I 0.034 Impressions: Chest X-Ray 11/03/19 11:09 IMPRESSION: Cardiomegaly without mina pulmonary edema. Cannot exclude a limited left lower lobe pneumonia. Assessment and Plan - Diagnosis (1) Multifocal pneumonia Is this a current diagnosis for this admission?: Yes Plan: Possible coronavirus infection, COVID-19 test pending, admitted to isolation IMCU Cefepime/azithromycin Blood culture Sputum culture Nebulizer as needed Supplemental oxygen to maintain at least 89% and no more than 94% in the setting of COPD and RACHELLE Hold IV fluids in the setting of diastolic CHF Significant improvement from admission antibiotics argues against COVID-19 pneumonia etiology (2) Suspected 2019 novel coronavirus infection Is this a current diagnosis for this admission?: Yes Plan: COVID-19 testing pending Admitted to isolation unit Appropriate supplements started on admission Improving clinically (3) Chronic steroid use Is this a current diagnosis for this admission?: Yes Plan: Takes prednisone daily at home for RA and COPD Holding prednisone, higher dose Solu-Medrol instead (4) Rheumatoid arthritis Is this a current diagnosis for this admission?: Yes Plan: Steroids continued Hold methotrexate in the setting of active pneumonia (5) Obstructive sleep apnea Is this a current diagnosis for this admission?: Yes (6) Acute and chronic respiratory failure with hypercapnia Is this a current diagnosis for this admission?: Yes (7) Opiate dependence, continuous Is this a current diagnosis for this admission?: Yes (8) Diastolic dysfunction with chronic heart failure Is this a current diagnosis for this admission?: Yes (9) COPD exacerbation Is this a current diagnosis for this admission?: Yes Plan: Steroids Nebulizer treatments Inhalers Antibiotics Improving (10) Coronary artery disease Is this a current diagnosis for this admission?: Yes - Time Time Spent with patient: 35 or more minutes Medications reviewed and adjusted accordingly: Yes Anticipated Discharge Disposition: Home with Home Health Anticipated Discharge Timeframe: within 72 hours - Inpatient Certification Based on my medical assessment, after consideration of the patient's comorbidities, presenting symptoms, or acuity I expect that the services needed warrant INPATIENT care.: Yes I certify that my determination is in accordance with my understanding of Medicare's requirements for reasonable and necessary INPATIENT services [42 CFR 412.3e].: Yes Medical Necessity: Significant Comorbidiites Make Outpatient Treatment Too Risky, Need Close Monitoring Due to Risk of Patient Decompensation, Need for IV Antibiotics, Risk of Complication if Not Cared For in Hospital, Risk of Diagnosis Which Will Require Inpatient Eval/Care/Monitoring
[2019-11-04] MEDS: IPRATROPIUM/ALBUTEROL 0.5-2.5 MG/3 ML AMPUL NEB PRN (15:59)
[2019-11-04] MEDS: MELATONIN 5 MG TABLET PO SCH (21:41)
[2019-11-04] MEDS: AZITHROMYCIN 500 MG in DEXTROSE 5%-WATER 250 ML IV SCH (21:41)
[2019-11-04] MEDS: ATORVASTATIN CALCIUM 40 MG TABLET PO SCH (21:42)
[2019-11-05] MEDS: MORPHINE SULFATE IR 15 MG TABLET PO SCH ×4 (00:05→17:53)
[2019-11-05 04:41] LABS: HEMATOCRIT 37.5 % (37.9-51.0); HEMOGLOBIN 12.8 g/dL (13.5-17.0); MEAN CORPUSCULAR HEMOGLOBIN 29.9 pg (27.0-33.4); MEAN CORPUSCULAR VOLUME 88 fl (80-97); PLATELET COUNT 211 10^3/uL (150-450); RED BLOOD COUNT 4.27 10^6/uL (4.35-5.55); RED CELL DISTRIBUTION WIDTH 17.2 % (11.5-14.0); WHITE BLOOD COUNT 8.7 10^3/uL (4.0-10.5)
[2019-11-05 04:54] LABS: ANION GAP 7 (5-19); BLOOD UREA NITROGEN 22 mg/dL (7-20); CALCIUM 8.6 mg/dL (8.4-10.2); CARBON DIOXIDE 35 mmol/L (22-30); CHLORIDE 90 mmol/L (98-107); GLUCOSE 105 mg/dL (75-110); POTASSIUM 4.1 mmol/L (3.6-5.0)
[2019-11-05 04:59] LABS: ABSOLUTE LYMPHOCYTES# (MANUAL) 0.3 10^3/uL (0.5-4.7); ABSOLUTE MONOCYTES # (MANUAL) 0.3 10^3/uL (0.1-1.4); BASOPHILS % (MANUAL) 0 % (0-2); EOSINOPHILS % (MANUAL) 0 % (0-6); LYMPHOCYTES % (MANUAL) 3 % (13-45); MONOCYTES % (MANUAL) 4 % (3-13); SEGMENTED NEUTROPHILS % (MAN) 93 % (42-78); TOTAL CELLS COUNTED 100
[2019-11-05 05:00] LABS: ANISOCYTOSIS 1+; OVALOCYTES SLIGHT; PLATELET COMMENT ADEQUATE; TEAR DROP CELLS SLIGHT
[2019-11-05] MEDS: GABAPENTIN 400 MG CAPSULE PO SCH ×3 (05:23→22:27)
[2019-11-05] MEDS: PRAMIPEXOLE DI-HCL 0.5 MG TABLET PO SCH ×3 (05:24→22:29)
[2019-11-05] MEDS: METHYLPREDNISOLONE INJ 125 MG/2 ML SDV IV SCH ×3 (05:24→22:28)
[2019-11-05] MEDS: CHOLECALCIFEROL (D3) 1,000 UNIT (25 MCG) TABLET PO SCH (09:16)
[2019-11-05] MEDS: FOLIC ACID 1 MG TABLET PO SCH (09:16)
[2019-11-05] MEDS: PANTOPRAZOLE SODIUM 20 MG TABLET.DR PO SCH ×2 (09:16→22:27)
[2019-11-05] MEDS: CEFEPIME HCL 2 GM in DEXTROSE 5%-WATER 50 ML IV SCH ×2 (09:18→22:28)
[2019-11-05] MEDS: DOCUSATE SODIUM 100 MG CAPSULE PO SCH (09:18)
[2019-11-05] MEDS: ZINC SULFATE 220 MG CAPSULE PO SCH (09:18)
[2019-11-05] MEDS: ASCORBIC ACID 500 MG TABLET PO SCH ×2 (09:18→17:52)
[2019-11-05] MEDS: FERROUS SULFATE 325 MG TABLET PO SCH ×2 (09:18→17:53)
[2019-11-05] MEDS: ASPIRIN 81 MG TABLET, ENT COATED PO SCH (09:18)
[2019-11-05] MEDS: FUROSEMIDE 40 MG TABLET PO SCH ×2 (09:18→17:53)
[2019-11-05] MEDS: ENOXAPARIN SODIUM INJ 40 MG/0.4 ML DISP.SYRIN SUBCUT SCH (09:20)
[2019-11-05] MEDS: VALSARTAN 40 MG TABLET PO SCH (09:44)
[2019-11-05] MEDS: METOPROLOL SUCCINATE 25 MG TAB.SR.24H PO SCH (09:44)
[2019-11-05] MEDS: UMECLIDINIUM BROMIDE 62.5 MCG/DOSE IH SCH (09:45)
[2019-11-05] MEDS: FLUTICASONE/VILANTEROL 100-25 MCG/DOSE IH SCH (09:45)
--- NOTE | 2019-11-05 15:03 | PDOC PROGRESS REPORT ---
Subjective Subjective:: SERGIO YAÑEZ is a 69 year old male with past medical history significant for stage II diastolic CHF, COPD, rheumatoid arthritis, RACHELLE, history of DVT, narcotic dependency, chronic hypoxemic and hypercarbic respiratory failure who presents with a 2-day history of progressive shortness of breath/dyspnea on exertion/generalized fatigue and weakness. Chest x-ray showed multifocal pneumonia and patient had a fever of over 101 on admission. Patient also has a left lower extremity wound with cellulitis and the wound is been dressed by ED nursing. Patient denies any coronavirus contacts however he has been tested for coronavirus and will be in the coronavirus unit while this test is pending. Patient is not on continuous home oxygen but does use 3 L nightly at home along with his CPAP. Patient states his current respiratory failure this admission feels like a severe COPD exacerbation but also feels different and also like he has an infection such as a pneumonia. Patient started on cefepime and azithromycin based on previous sputum cultures that have grown Pseudomonas and E. coli. Admitted to [facility] coronavirus unit. Appropriate vitamins/supplements started. 11/04/2019 Patient has had some significant improvement since yesterday with appropriate treatment of his multifocal pneumonia, COPD exacerbation, and CHF. This does not seem to be the usual clinical course that we expect in the setting of COVID- 19 pneumonia. COVID-19 testing still pending however patient will need to remain in isolation unit until this is back. Blood culture and sputum culture are pending. Patient was titrated off BiPAP and is now on 3 L nasal cannula. He has no new complaints today. 11/05/2019 Discussed with nursing that we should be actively weaning his supplemental oxygen as he does not wear this at rest at home. COVID testing is negative. Patient's sputum culture is now growing gram-negative rods x2 and will need to wait for the finalized speciation and sensitivity before he can be discharged. He has grown E. coli and Pseudomonas in the past and his sputum cultures. Blood pressure lower limit normal however patient states this is normal for him. Possible discharge tomorrow if culture results are finalized. Patient has no new complaints. Reason For Visit: MULTIFOCAL PNEUMONIA, SUSPECTED COVID-19 INFECTION Physical Exam Vital Signs: Temp Pulse Resp BP Pulse Ox 97.6 F 68 17 94/51 L 91 L 11/05/19 10:00 11/05/19 12:00 11/05/19 12:00 11/05/19 12:00 11/05/19 12:00 Intake & Output 11/04/19 11/05/19 11/06/19 06:59 06:59 06:59 Intake Total 2059 1720 Output Total 2895 825 Balance 2059 -1175 -825 Weight 71.2 kg 71.7 kg Exam: General appearance: PRESENT: no acute distress, well-developed, well-nourished, states his breathing is improved Head exam: PRESENT: atraumatic, normocephalic Eye exam: PRESENT: conjunctiva pink. ABSENT: scleral icterus Mouth exam: PRESENT: moist Respiratory exam: PRESENT: decreased breath sounds, scant rales at bases ABSENT: rhonchi, wheezing Cardiovascular exam: PRESENT: RRR. ABSENT: diastolic murmur, rubs, systolic murmur GI/Abdominal exam: PRESENT: normal bowel sounds, soft. ABSENT: distended, guarding, mass, organolmegaly, rebound, tenderness Rectal exam: PRESENT: deferred Extremities exam: ABSENT: pedal edema Neurological exam: PRESENT: alert, awake, oriented to person, oriented to place, oriented to time, oriented to situation Psychiatric exam: PRESENT: appropriate affect, normal mood Skin exam: PRESENT: dry, warm, other - Left lower extremity wound Results Laboratory Results: 11/05/19 04:16 11/05/19 04:16 11/05/19 11/05/19 04:16 04:16 WBC 8.7 RBC 4.27 L Hgb 12.8 L Hct 37.5 L MCV 88 MCH 29.9 MCHC 34.0 RDW 17.2 H Plt Count 211 Seg Neutrophils % Not Reportable Sodium 132.2 L Potassium 4.1 Chloride 90 L Carbon Dioxide 35 H Anion Gap 7 BUN 22 H Creatinine 0.65 Est GFR ( Amer) > 60 Glucose 105 Calcium 8.6 11/03/19 12:53 Troponin I 0.034 Impressions: Chest X-Ray 11/03/19 11:09 IMPRESSION: Cardiomegaly without mina pulmonary edema. Cannot exclude a limited left lower lobe pneumonia. Assessment and Plan - Diagnosis (1) Multifocal pneumonia Is this a current diagnosis for this admission?: Yes Plan: Ruled out coronavirus infection, COVID-19 test negative as of 11/04 Cefepime/azithromycin Blood culture negative Sputum culture growing gram-negative rods x2, follow-up finalized results Previous sputum cultures have grown E. coli and Pseudomonas Nebulizer as needed Supplemental oxygen to maintain at least 89% and no more than 94% in the setting of COPD and RACHELLE Hold IV fluids in the setting of diastolic CHF Significant improvement from admission antibiotics argues against COVID-19 pneumonia etiology (2) Suspected 2019 novel coronavirus infection Is this a current diagnosis for this admission?: Yes Plan: COVID-19 testing negative Admitted to isolation unit Appropriate supplements started on admission Improving clinically COVID-19 ruled out with negative test (3) Chronic steroid use Is this a current diagnosis for this admission?: Yes (4) Rheumatoid arthritis Is this a current diagnosis for this admission?: Yes (5) Obstructive sleep apnea Is this a current diagnosis for this admission?: Yes (6) Acute and chronic respiratory failure with hypercapnia Is this a current diagnosis for this admission?: Yes (7) Opiate dependence, continuous Is this a current diagnosis for this admission?: Yes (8) Diastolic dysfunction with chronic heart failure Is this a current diagnosis for this admission?: Yes (9) COPD exacerbation Is this a current diagnosis for this admission?: Yes Plan: Steroids Nebulizer treatments Inhalers Antibiotics Improving consistently (10) Coronary artery disease Is this a current diagnosis for this admission?: Yes - Time Time Spent with patient: 25-34 minutes Medications reviewed and adjusted accordingly: Yes Anticipated Discharge Disposition: Home, Self Care Anticipated Discharge Timeframe: within 48 hours - Inpatient Certification Based on my medical assessment, after consideration of the patient's comorbidities, presenting symptoms, or acuity I expect that the services needed warrant INPATIENT care.: Yes I certify that my determination is in accordance with my understanding of Medicare's requirements for reasonable and necessary INPATIENT services [42 CFR 412.3e].: Yes Medical Necessity: Significant Comorbidiites Make Outpatient Treatment Too Risky, Need Close Monitoring Due to Risk of Patient Decompensation, Need for IV Antibiotics, Risk of Complication if Not Cared For in Hospital, Risk of Diagnosis Which Will Require Inpatient Eval/Care/Monitoring
[2019-11-05] MEDS: AZITHROMYCIN 500 MG in DEXTROSE 5%-WATER 250 ML IV SCH (20:50)
[2019-11-05] MEDS: ATORVASTATIN CALCIUM 40 MG TABLET PO SCH (22:27)
[2019-11-05] MEDS: MELATONIN 5 MG TABLET PO SCH (22:27)
[2019-11-06] MEDS: MORPHINE SULFATE IR 15 MG TABLET PO SCH ×3 (01:23→13:25)
[2019-11-06] MEDS: METHYLPREDNISOLONE INJ 125 MG/2 ML SDV IV SCH ×2 (05:50→13:25)
[2019-11-06] MEDS: PRAMIPEXOLE DI-HCL 0.5 MG TABLET PO SCH ×2 (05:51→13:25)
[2019-11-06] MEDS: GABAPENTIN 400 MG CAPSULE PO SCH ×2 (05:51→13:25)
[2019-11-06 07:04] LABS: HEMATOCRIT 37.5 % (37.9-51.0); HEMOGLOBIN 12.6 g/dL (13.5-17.0); MEAN CORPUSCULAR HEMOGLOBIN 29.5 pg (27.0-33.4); MEAN CORPUSCULAR HGB CONC 33.4 g/dL (32.0-36.0); MEAN CORPUSCULAR VOLUME 88 fl (80-97); PLATELET COUNT 239 10^3/uL (150-450); RED BLOOD COUNT 4.26 10^6/uL (4.35-5.55); RED CELL DISTRIBUTION WIDTH 17.3 % (11.5-14.0); WHITE BLOOD COUNT 12.9 10^3/uL (4.0-10.5)
[2019-11-06 07:10] LABS: ANION GAP 8 (5-19); BLOOD UREA NITROGEN 31 mg/dL (7-20); CALCIUM 8.6 mg/dL (8.4-10.2); CARBON DIOXIDE 37 mmol/L (22-30); CHLORIDE 91 mmol/L (98-107); GLUCOSE 162 mg/dL (75-110)
[2019-11-06 07:26] LABS: ABSOLUTE LYMPHOCYTES# (MANUAL) 0.4 10^3/uL (0.5-4.7); ABSOLUTE MONOCYTES # (MANUAL) 0.3 10^3/uL (0.1-1.4); BASOPHILS % (MANUAL) 0 % (0-2); EOSINOPHILS % (MANUAL) 0 % (0-6); LYMPHOCYTES % (MANUAL) 3 % (13-45); MONOCYTES % (MANUAL) 2 % (3-13); SEGMENTED NEUTROPHILS % (MAN) 95 % (42-78); TOTAL CELLS COUNTED 100
[2019-11-06 07:28] LABS: ANISOCYTOSIS 1+; BURR CELLS SLIGHT; OVALOCYTES SLIGHT; POIKILOCYTOSIS SLIGHT; POLYCHROMASIA SLIGHT; TOXIC GRANULATION SLIGHT
[2019-11-06 07:29] LABS: PLATELET COMMENT ADEQUATE
[2019-11-06] MEDS: ENOXAPARIN SODIUM INJ 40 MG/0.4 ML DISP.SYRIN SUBCUT SCH (09:25)
[2019-11-06] MEDS: FLUTICASONE/VILANTEROL 100-25 MCG/DOSE IH SCH (09:25)
[2019-11-06] MEDS: CEFEPIME HCL 2 GM in DEXTROSE 5%-WATER 50 ML IV SCH (09:25)
[2019-11-06] MEDS: CHOLECALCIFEROL (D3) 1,000 UNIT (25 MCG) TABLET PO SCH (09:25)
[2019-11-06] MEDS: UMECLIDINIUM BROMIDE 62.5 MCG/DOSE IH SCH (09:25)
[2019-11-06] MEDS: ASCORBIC ACID 500 MG TABLET PO SCH (09:25)
[2019-11-06] MEDS: VALSARTAN 40 MG TABLET PO SCH (09:26)
[2019-11-06] MEDS: ZINC SULFATE 220 MG CAPSULE PO SCH (09:26)
[2019-11-06] MEDS: FUROSEMIDE 40 MG TABLET PO SCH (09:26)
[2019-11-06] MEDS: FERROUS SULFATE 325 MG TABLET PO SCH (09:26)
[2019-11-06] MEDS: ASPIRIN 81 MG TABLET, ENT COATED PO SCH (09:26)
[2019-11-06] MEDS: DOCUSATE SODIUM 100 MG CAPSULE PO SCH (09:26)
[2019-11-06] MEDS: PANTOPRAZOLE SODIUM 20 MG TABLET.DR PO SCH (09:26)
[2019-11-06] MEDS: FOLIC ACID 1 MG TABLET PO SCH (09:26)
[2019-11-06] MEDS: METOPROLOL SUCCINATE 25 MG TAB.SR.24H PO SCH (09:26)
[2019-11-06] MEDS: IPRATROPIUM/ALBUTEROL 0.5-2.5 MG/3 ML AMPUL NEB PRN (11:16)
[2019-11-06] MEDS ORDERED: METHOCARBAMOL 750 MG TABLET PO PRN (13:32)
[2019-11-06] MEDS ORDERED: PREDNISONE 20 MG TABLET PO SCH (14:00)
[2019-11-06 16:10] VITALS: BP 94/51
--- NOTE | 2019-11-06 16:21 | PDOC DISCHARGE SUMMARY ---
Impression - Admit/DC Date/PCP Admission Date/Primary Care Provider: 11/03/19 15:19 Discharge Date: 11/06/19 - Discharge Diagnosis (1) Multifocal pneumonia Is this a current diagnosis for this admission?: Yes (2) Suspected 2019 novel coronavirus infection Is this a current diagnosis for this admission?: Yes (3) Chronic steroid use Is this a current diagnosis for this admission?: Yes (4) Rheumatoid arthritis Is this a current diagnosis for this admission?: Yes (5) Obstructive sleep apnea Is this a current diagnosis for this admission?: Yes (6) Acute and chronic respiratory failure with hypercapnia Is this a current diagnosis for this admission?: Yes (7) Opiate dependence, continuous Is this a current diagnosis for this admission?: Yes (8) Diastolic dysfunction with chronic heart failure Is this a current diagnosis for this admission?: Yes (9) COPD exacerbation Is this a current diagnosis for this admission?: Yes (10) Coronary artery disease Is this a current diagnosis for this admission?: Yes - Additional Information Resuscitation Status: Full Code Discharge Diet: As Tolerated, Cardiac Discharge Activity: Activity As Tolerated, Balance Activity w/Rest Prescriptions: Prednisone [Deltasone 20 mg Tablet] See Protocol PO ASDIR PRN #9 tablet PRN Reason: Moxifloxacin HCl 400 mg PO DAILY 5 Days #5 tablet Home Medications: Albuterol Sulfate [Proair HFA Inhalation Aerosol 8.5 gm MDI] 2 puff IH Q6HP PRN 08/09/19 Atorvastatin Calcium [Lipitor 40 mg Tablet] 40 mg PO QHS 08/09/19 Budesonide/Formoterol Fumarate [Symbicort HFA 80-4.5 mcg Inhaler 6.9 gm] 2 puff IH BID 08/09/19 Ferrous Sulfate [Feosol 325 mg Tablet] 325 mg PO BID 08/09/19 Folic Acid 1 mg PO DAILY 08/09/19 Furosemide [Lasix 40 mg Tablet] 40 mg PO BID 08/09/19 Gabapentin 800 mg PO TID 08/09/19 Morphine Sulfate [Morphine Ir 15 mg Tablet] 15 mg PO Q6 08/09/19 Nitroglycerin 0.4 mg SL ASDIR PRN 08/09/19 Omeprazole 20 mg PO BID 08/09/19 Pramipexole Di-HCl [Mirapex] 1 mg PO TID 08/09/19 Tiotropium [place] [Spiriva Handihaler 5 Cap/Kit (18 Mcg/Cap)] 1 cap IH DAILY 08/09/19 Doxycycline Hyclate 100 mg PO BID #20 tablet. 10/20/19 Aspirin [Aspirin 325 mg Tablet] 325 mg PO DAILY 11/03/19 Cholecalciferol (Vitamin D3) [Vitamin D3 1000 Unit Tablet] 1,000 unit PO DAILY 11/03/19 Fluorouracil 1 applic TP BID 11/03/19 Methocarbamol [Robaxin 750 mg Tablet] 750 mg PO TIDP PRN 11/03/19 Roflumilast [Daliresp] 250 mcg PO DAILY 11/03/19 Metoprolol Succinate [Toprol Xl 25 mg Tab.sr] 12.5 mg PO DAILY #0 11/06/19 Moxifloxacin HCl 400 mg PO DAILY 5 Days #5 tablet 11/06/19 Prednisone [Deltasone 20 mg Tablet] See Protocol PO ASDIR PRN #9 tablet 11/06/19 Valsartan 40 mg PO DAILY #0 11/06/19 History of Present Illiness History of Present Illness: SERGIO YAÑEZ is a 69 year old male with past medical history significant for stage II diastolic CHF, COPD, rheumatoid arthritis, RACHELLE, history of DVT, narcotic dependency, chronic hypoxemic and hypercarbic respiratory failure who presents with a 2-day history of progressive shortness of breath/dyspnea on e xertion/generalized fatigue and weakness. Chest x-ray showed multifocal pneumonia and patient had a fever of over 101 on admission. Patient also has a left lower extremity wound with cellulitis and the wound is been dressed by ED nursing. Patient denies any coronavirus contacts however he has been tested for coronavirus and will be in the coronavirus unit while this test is pending. Patient is not on continuous home oxygen but does use 3 L nightly at home along with his CPAP. Patient states his current respiratory failure this admission feels like a severe COPD exacerbation but also feels different and also like he has an infection such as a pneumonia. Patient started on cefepime and azithromycin based on previous sputum cultures that have grown Pseudomonas and E. coli. Admitted to [facility] coronavirus unit. Appropriate vitamins/supplements started. Hospital Course Hospital Course: SERGIO YAÑEZ is a 69 year old male with past medical history significant for stage II diastolic CHF, COPD, rheumatoid arthritis, RACHELLE, history of DVT, narcotic dependency, chronic hypoxemic and hypercarbic respiratory failure who presents with a 2-day history of progressive shortness of breath/dyspnea on exertion/generalized fatigue and weakness. Chest x-ray showed multifocal pneumonia and patient had a fever of over 101 on admission. Patient also has a left lower extremity wound with cellulitis and the wound is been dressed by ED nursing. Patient denies any coronavirus contacts however he has been tested for coronavirus and will be in the coronavirus unit while this test is pending. Patient is not on continuous home oxygen but does use 3 L nightly at home along with his CPAP. Patient states his current respiratory failure this admission feels like a severe COPD exacerbation but also feels different and also like he has an infection such as a pneumonia. Patient started on cefepime and azithromycin based on previous sputum cultures that have grown Pseudomonas and E. coli. Admitted to [facility] coronavirus unit. Appropriate vitamins/supplements started. 11/04/2019 Patient has had some significant improvement since yesterday with appropriate treatment of his multifocal pneumonia, COPD exacerbation, and CHF. This does not seem to be the usual clinical course that we expect in the setting of COVID- 19 pneumonia. COVID-19 testing still pending however patient will need to remain in isolation unit until this is back. Blood culture and sputum culture are pending. Patient was titrated off BiPAP and is now on 3 L nasal cannula. He has no new complaints today. 11/05/2019 Discussed with nursing that we should be actively weaning his supplemental oxygen as he does not wear this at rest at home. COVID testing is negative. Patient's sputum culture is now growing gram-negative rods x2 and will need to wait for the finalized speciation and sensitivity before he can be discharged. He has grown E. coli and Pseudomonas in the past and his sputum cultures. Blood pressure lower limit normal however patient states this is normal for him. Possible discharge tomorrow if culture results are finalized. Patient has no new complaints. I consulted infectious disease and discussed the case with Dr. Merritt in detail. Respiratory cultures growing Acinetobacter and Pseudomonas. She stated patient can be discharged on moxifloxacin 400 mg daily for 5 additional days at discharge. She stated the patient is most likely colonized with Acinetobacter. I reduce the patient's morphine dosing while he was here and he seemed to be doing much better with this. His blood pressure was running lower limit normal throughout most of the admission and I reduced his blood pressure medications as well. I instructed the patient to hold his methotrexate and any other immunosuppression rheumatoid arthritis specific medications until he completes his antibiotic course. At that time, patient must call his brand coordinator and discuss restarting these medications. Patient will be discharged on a prednisone taper starting at 40 mg and ending on his home dose which I confirmed with him to be 5 mg prednisone 3 times daily long-term. Patient was follow-up with his PCP and brand coordinator within 1 week of discharge. (1) Multifocal pneumonia resolving/resolved Is this a current diagnosis for this admission?: Yes Plan: Ruled out coronavirus infection, COVID-19 test negative as of 11/04 Cefepime/azithromycin transitioned to moxifloxacin monotherapy at discharge for an additional 5 days Blood culture negative Sputum culture growing Acinetobacter and Pseudomonas ID consulted and case discussed with Dr. Merritt Previous sputum cultures have grown E. coli and Pseudomonas Nebulizer as needed Supplemental oxygen to maintain at least 89% and no more than 94% in the setting of COPD and RACHELLE Hold IV fluids in the setting of diastolic CHF Significant consistent improvement from admission on antibiotics argues against COVID-19 pneumonia etiology (2) Suspected 2019 novel coronavirus infection ruled out Is this a current diagnosis for this admission?: Yes Plan: COVID-19 testing negative Admitted to isolation unit Appropriate supplements started on admission Improving clinically COVID-19 ruled out with negative test (3) Chronic steroid use Is this a current diagnosis for this admission?: Yes (4) Rheumatoid arthritis Is this a current diagnosis for this admission?: Yes (5) Obstructive sleep apnea Is this a current diagnosis for this admission?: Yes (6) Acute and chronic respiratory failure with hypercapnia Is this a current diagnosis for this admission?: Yes (7) Opiate dependence, continuous Is this a current diagnosis for this admission?: Yes (8) Diastolic dysfunction with chronic heart failure Is this a current diagnosis for this admission?: Yes (9) COPD exacerbation Is this a current diagnosis for this admission?: Yes Plan: Steroids Nebulizer treatments Inhalers Antibiotics Improving consistently (10) Coronary artery disease Is this a current diagnosis for this admission?: Yes Physical Exam Vital Signs: Temp Pulse Resp BP Pulse Ox 97.2 F 87 19 107/57 L 100 11/06/19 08:21 11/06/19 14:00 11/06/19 11:28 11/06/19 11:28 11/06/19 11:28 Intake & Output 11/05/19 11/06/19 11/07/19 06:59 06:59 06:59 Intake Total 7004 845 6195 Output Total 2895 1325 Balance -1175 -1075 1100 Weight 71.7 kg 73.3 kg Exam: General appearance: PRESENT: no acute distress, well-developed, well-nourished, states he feels very well and would like to go home Head exam: PRESENT: atraumatic, normocephalic Eye exam: PRESENT: conjunctiva pink. ABSENT: scleral icterus Mouth exam: PRESENT: moist Respiratory exam: PRESENT: Chronic decreased breath sounds ABSENT: rhonchi, wheezing Cardiovascular exam: PRESENT: RRR. ABSENT: diastolic murmur, rubs, systolic murmur GI/Abdominal exam: PRESENT: normal bowel sounds, soft. ABSENT: distended, guarding, mass, organolmegaly, rebound, tenderness Rectal exam: PRESENT: deferred Extremities exam: ABSENT: pedal edema Neurological exam: PRESENT: alert, awake, oriented to person, oriented to place, oriented to time, oriented to situation Psychiatric exam: PRESENT: appropriate affect, normal mood Skin exam: PRESENT: dry, warm, other - Left lower extremity wound Results Laboratory Results: WBC 12.9 10^3/uL (4.0-10.5) H 11/06/19 06:01 RBC 4.26 10^6/uL (4.35-5.55) L 11/06/19 06:01 Hgb 12.6 g/dL (13.5-17.0) L 11/06/19 06:01 Hct 37.5 % (37.9-51.0) L 11/06/19 06:01 MCV 88 fl (80-97) 11/06/19 06:01 MCH 29.5 pg (27.0-33.4) 11/06/19 06:01 MCHC 33.4 g/dL (32.0-36.0) 11/06/19 06:01 RDW 17.3 % (11.5-14.0) H 11/06/19 06:01 Plt Count 239 10^3/uL (150-450) 11/06/19 06:01 Lymph % (Auto) Not Reportable 11/06/19 06:01 [place] % (Auto) Not Reportable 11/06/19 06:01 Eos % (Auto) Not Reportable 11/06/19 06:01 Baso % (Auto) Not Reportable 11/06/19 06:01 Absolute Neuts (auto) Not Reportable 11/06/19 06:01 Absolute Lymphs (auto) Not Reportable 11/06/19 06:01 Absolute Monos (auto) Not Reportable 11/06/19 06:01 Absolute Eos (auto) Not Reportable 11/06/19 06:01 Absolute Basos (auto) Not Reportable 11/06/19 06:01 Total Counted 100 11/06/19 06:01 Seg Neutrophils % Not Reportable 11/06/19 06:01 Seg Neuts % (Manual) 95 % (42-78) H 11/06/19 06:01 Lymphocytes % (Manual) 3 % (13-45) L 11/06/19 06:01 Monocytes % (Manual) 2 % (3-13) L 11/06/19 06:01 Eosinophils % (Manual) 0 % (0-6) 11/06/19 06:01 Basophils % (Manual) 0 % (0-2) 11/06/19 06:01 Abs Neuts (Manual) 12.3 10^3/uL (1.7-8.2) H 11/06/19 06:01 Abs Lymphs (Manual) 0.4 10^3/uL (0.5-4.7) L 11/06/19 06:01 Abs Monocytes (Manual) 0.3 10^3/uL (0.1-1.4) 11/06/19 06:01 Absolute Eos (Manual) 0.0 10^3/uL (0.0-0.6) 11/06/19 06:01 Abs Basophils (Manual) 0.0 10^3/uL (0.0-0.2) 11/06/19 06:01 Toxic Granulation SLIGHT 11/06/19 06:01 Platelet Comment ADEQUATE 11/06/19 06:01 Polychromasia SLIGHT 11/06/19 06:01 Poikilocytosis SLIGHT 11/06/19 06:01 Anisocytosis 1+ 11/06/19 06:01 Tear Drop Cells SLIGHT 11/05/19 04:16 Ovalocytes SLIGHT 11/06/19 06:01 Ros Cells SLIGHT 11/06/19 06:01 VBG pH 7.26 (7.30-7.42) L 11/03/19 12:53 VBG pCO2 99.3 mmHg (35-63) H* 11/03/19 12:53 VBG HCO3 43.8 mmol/L (20-32) H 11/03/19 12:53 VBG Base Excess 12.3 mmol/L 11/03/19 12:53 Sodium 136.3 mmol/L (137-145) L 11/06/19 06:01 Potassium 4.0 mmol/L (3.6-5.0) 11/06/19 06:01 Chloride 91 mmol/L (98-107) L 11/06/19 06:01 Carbon Dioxide 37 mmol/L (22-30) H 11/06/19 06:01 Anion Gap 8 (5-19) 11/06/19 06:01 BUN 31 mg/dL (7-20) H 11/06/19 06:01 Creatinine 0.67 mg/dL (0.52-1.25) 11/06/19 06:01 Est GFR ( Amer) > 60 (>60) 11/06/19 06:01 Est GFR (MDRD) Non-Af > 60 (>60) 11/06/19 06:01 Glucose 162 mg/dL (75-110) H 11/06/19 06:01 Lactic Acid 1.1 mmol/L (0.7-2.1) 11/03/19 18:54 Calcium 8.6 mg/dL (8.4-10.2) 11/06/19 06:01 Phosphorus 2.6 mg/dL (2.5-4.5) 11/04/19 04:01 Magnesium 1.7 mg/dL (1.6-2.3) 11/04/19 04:01 Total Bilirubin 0.8 mg/dL (0.2-1.3) 11/03/19 12:53 Direct Bilirubin 0.4 mg/dL (0.0-0.4) 11/03/19 12:53 Neonat Total Bilirubin Not Reportable 11/03/19 12:53 Neonat Direct Bilirubin Not Reportable 11/03/19 12:53 Neonat Indirect Bili Not Reportable 11/03/19 12:53 AST 57 U/L (17-59) 11/03/19 12:53 ALT 31 U/L (<50) 11/03/19 12:53 Alkaline Phosphatase 90 U/L (38-126) 11/03/19 12:53 Troponin I 0.034 ng/mL 11/03/19 12:53 Total Protein 6.0 g/dL (6.3-8.2) L 11/03/19 12:53 Albumin 3.4 g/dL (3.5-5.0) L 11/03/19 12:53 Urine Color YELLOW 11/03/19 14:02 Urine Appearance CLEAR 11/03/19 14:02 Urine pH 5.0 (5.0-9.0) 11/03/19 14:02 Ur Specific [place] 1.011 11/03/19 14:02 Urine Protein NEGATIVE mg/dL (NEGATIVE) 11/03/19 14:02 Urine Glucose (UA) NEGATIVE mg/dL (NEGATIVE) 11/03/19 14:02 Urine Ketones NEGATIVE mg/dL (NEGATIVE) 11/03/19 14:02 Urine Blood NEGATIVE (NEGATIVE) 11/03/19 14:02 Urine Nitrite NEGATIVE (NEGATIVE) 11/03/19 14:02 Urine Bilirubin NEGATIVE (NEGATIVE) 11/03/19 14:02 Urine Urobilinogen NEGATIVE mg/dL (<2.0) 11/03/19 14:02 Ur Leukocyte Esterase NEGATIVE (NEGATIVE) 11/03/19 14:02 Urine WBC (Auto) 0 /HPF 11/03/19 14:02 Urine RBC (Auto) 0 /HPF 11/03/19 14:02 U Hyaline Cast (Auto) 8 /LPF 11/03/19 14:02 Urine Mucus (Auto) RARE /LPF 11/03/19 14:02 Urine Ascorbic Acid 40 (NEGATIVE) H 11/03/19 14:02 COVID-19 Source See comment 11/03/19 13:55 COVID-19 (CYNDI) Not Detected (Not Detect) 11/03/19 13:55 11/03/19 12:53 Troponin I 0.034 Impressions: Chest X-Ray 11/03/19 11:09 IMPRESSION: Cardiomegaly without mina pulmonary edema. Cannot exclude a limited left lower lobe pneumonia. Plan Plan of Treatment: Follow-up with PCP Follow-up with brand coordinator Moxifloxacin for an additional 5 days Prednisone taper until back to home dose of 5 mg 3 times daily Hold methotrexate until finished with antibiotics Time Spent: Greater than 30 Minutes Stroke Is this a Stroke Patient?: No Acute Heart Failure Is this a Heart Failure Patient?: Yes Documentation of LVEF assessment?: Yes LVEF: LVEF Greater Than 40% Anticoagulant Therapy: N/A
--- NOTE | 2019-11-06 19:42 | Progress Note ---
Provider Note Provider Note: [facility] ID Telephone Advice Consultation Chart reviewed, patient not examined. This is a 69-year-old man with CHF and COPD who was admitted with worsening shortness of breath and cough. He also complained of fever. On admission, he didn't have leukocytosis, but he was requiring oxygen. He was started on cefepime and azithromycin. CXR was consistent with edema/CHF but souldn't rule out LLL pneumonia. He responded well within 24 hr more consistent with COPD/CHF exacerbation. Sputum culture grew 1+ GNR and 1 col of Pseudomonas. Patient is ready to be discharged home, ID consulted for recommendations. Allergies: No Known Allergies Allergy (Verified 11/04/19 07:37) Medications: Albuterol Sulfate [Proair HFA Inhalation Aerosol 8.5 gm MDI] 2 puff IH Q6HP PRN 08/09/19 Atorvastatin Calcium [Lipitor 40 mg Tablet] 40 mg PO QHS 08/09/19 Budesonide/Formoterol Fumarate [Symbicort HFA 80-4.5 mcg Inhaler 6.9 gm] 2 puff IH BID 08/09/19 Ferrous Sulfate [Feosol 325 mg Tablet] 325 mg PO BID 08/09/19 Folic Acid 1 mg PO DAILY 08/09/19 Furosemide [Lasix 40 mg Tablet] 40 mg PO BID 08/09/19 Gabapentin 800 mg PO TID 08/09/19 Morphine Sulfate [Morphine Ir 15 mg Tablet] 15 mg PO Q6 08/09/19 Nitroglycerin 0.4 mg SL ASDIR PRN 08/09/19 Omeprazole 20 mg PO BID 08/09/19 Pramipexole Di-HCl [Mirapex] 1 mg PO TID 08/09/19 Tiotropium [place] [Spiriva Handihaler 5 Cap/Kit (18 Mcg/Cap)] 1 cap IH DAILY 08/09/19 Aspirin [Aspirin 325 mg Tablet] 325 mg PO DAILY 11/03/19 Cholecalciferol (Vitamin D3) [Vitamin D3 1000 Unit Tablet] 1,000 unit PO DAILY 11/03/19 Fluorouracil 1 applic TP BID 11/03/19 Methocarbamol [Robaxin 750 mg Tablet] 750 mg PO TIDP PRN 11/03/19 Roflumilast [Daliresp] 250 mcg PO DAILY 11/03/19 Vital Signs: Temp Pulse Resp BP Pulse Ox 97.2 F 87 19 94/51 L 100 11/06/19 16:07 11/06/19 16:07 11/06/19 16:07 11/06/19 16:07 11/06/19 16:07 Intake & Output 11/05/19 11/06/19 11/07/19 06:59 06:59 06:59 Intake Total 6643 740 6002 Output Total 2895 1325 Balance -1175 -1075 1100 Weight 71.7 kg 73.3 kg Weight/Height Weight 73.3 kg Height 5 ft 1 in Laboratories: 11/06/19 06:01 11/06/19 06:01 MCV 88 fl (80-97) 11/06/19 06:01 MCH 29.5 pg (27.0-33.4) 11/06/19 06:01 MCHC 33.4 g/dL (32.0-36.0) 11/06/19 06:01 RDW 17.3 % (11.5-14.0) H 11/06/19 06:01 Seg Neutrophils % Not Reportable 11/06/19 06:01 VBG pH 7.26 (7.30-7.42) L 11/03/19 12:53 VBG pCO2 99.3 mmHg (35-63) H* 11/03/19 12:53 VBG HCO3 43.8 mmol/L (20-32) H 11/03/19 12:53 VBG Base Excess 12.3 mmol/L 11/03/19 12:53 Chloride 91 mmol/L (98-107) L 11/06/19 06:01 Carbon Dioxide 37 mmol/L (22-30) H 11/06/19 06:01 Anion Gap 8 (5-19) 11/06/19 06:01 Est GFR ( Amer) > 60 (>60) 11/06/19 06:01 Glucose 162 mg/dL (75-110) H 11/06/19 06:01 Lactic Acid 1.1 mmol/L (0.7-2.1) 11/03/19 18:54 Calcium 8.6 mg/dL (8.4-10.2) 11/06/19 06:01 Phosphorus 2.6 mg/dL (2.5-4.5) 11/04/19 04:01 Magnesium 1.7 mg/dL (1.6-2.3) 11/04/19 04:01 Total Bilirubin 0.8 mg/dL (0.2-1.3) 11/03/19 12:53 AST 57 U/L (17-59) 11/03/19 12:53 Alkaline Phosphatase 90 U/L (38-126) 11/03/19 12:53 Total Protein 6.0 g/dL (6.3-8.2) L 11/03/19 12:53 Albumin 3.4 g/dL (3.5-5.0) L 11/03/19 12:53 Urine Color YELLOW 11/03/19 14:02 Urine Appearance CLEAR 11/03/19 14:02 Urine pH 5.0 (5.0-9.0) 11/03/19 14:02 Ur Specific [place] 1.011 11/03/19 14:02 Urine Protein NEGATIVE mg/dL (NEGATIVE) 11/03/19 14:02 Urine Glucose (UA) NEGATIVE mg/dL (NEGATIVE) 11/03/19 14:02 Urine Ketones NEGATIVE mg/dL (NEGATIVE) 11/03/19 14:02 Urine Blood NEGATIVE (NEGATIVE) 11/03/19 14:02 Urine Nitrite NEGATIVE (NEGATIVE) 11/03/19 14:02 Ur Leukocyte Esterase NEGATIVE (NEGATIVE) 11/03/19 14:02 Urine WBC (Auto) 0 /HPF 11/03/19 14:02 Urine RBC (Auto) 0 /HPF 11/03/19 14:02 11/04/19 00:25 Sputum Gram Stain - Final 11/03/19 12:53 Troponin I 0.034 Microbiology: Blood culture 11/02 NGTD Sputum culture 11/02 1 col Pseudomonas, 1+ GNR Radiology: Chest X-Ray 11/03/19 11:09 IMPRESSION: Cardiomegaly without mina pulmonary edema. Cannot exclude a limited left lower lobe pneumonia. Assessment and Recommendations: Patient evaluated for COPD exacerbation, CHF who was started on oxygen and antibiotics with adequate response within 24 hr. He has been on cefepime and azithromycin, responded well. He is off oxygen now and ready to be discharged home. Moxifloxacin 400 mg po daily for 5 more days would be a reasonable alternative, Pseudomonas is likely a colonizer here, not concerned for pneumonia due to Pseudomonas. PLease call if any questions. Ute Merritt MD [facility] ID [phone]
[2019-11-07] MEDS ORDERED: CHOLECALCIFEROL (D3) 1,000 UNIT (25 MCG) TABLET PO SCH (10:00)
== END 2019-11-06 16:45 | disposition home or self-care (01) | DRG 193 ==
LOC: ER 10:59 → EH 15:19 → ICU 23:40 → 3S 11-05 17:40
PROVIDERS: ADMIT Internal Medicine; ATTEND Internal Medicine
PROC: 5A09357 Assistance with Respiratory Ventilation, Less than 24 Consecutive Hours, Continuous Positive Airway Pressure (ICD-10-PCS; principal; 2019-11-03)
DX: J18.9 Pneumonia, unspecified organism (principal); J96.22 Acute and chronic respiratory failure with hypercapnia; F11.20 Opioid dependence, uncomplicated; J44.1 Chronic obstructive pulmonary disease with (acute) exacerbation; J44.0 Chronic obstructive pulmonary disease with (acute) lower respiratory infection; J96.11 Chronic respiratory failure with hypoxia; I50.32 Chronic diastolic (congestive) heart failure; G47.33 Obstructive sleep apnea (adult) (pediatric); I25.10 Atherosclerotic heart disease of native coronary artery without angina pectoris; B96.5 Pseudomonas (aeruginosa) (mallei) (pseudomallei) as the cause of diseases classified elsewhere; B96.20 Unspecified Escherichia coli [E. coli] as the cause of diseases classified elsewhere; E78.5 Hyperlipidemia, unspecified; I11.0 Hypertensive heart disease with heart failure; I25.2 Old myocardial infarction; Z20.828 Contact with and (suspected) exposure to other viral communicable diseases; Z79.52 Long term (current) use of systemic steroids; Z79.899 Other long term (current) drug therapy; Z79.82 Long term (current) use of aspirin; Z79.51 Long term (current) use of inhaled steroids; Z86.718 Personal history of other venous thrombosis and embolism; Z99.81 Dependence on supplemental oxygen; Z95.5 Presence of coronary angioplasty implant and graft; Z86.711 Personal history of pulmonary embolism; Z87.891 Personal history of nicotine dependence
CPT/HCPCS: 36415; 71045; 80048; 80053; 81001; 82803; 83605; 83735; 84100; 84484; 85025; 87040; 87070; 87077; 87186; 87205; 87635; 93005; 93010; 94640; 94660; 96365; 99285; C9803; J0456; J0692; J1650; J2930; J3370; J3490; J7030; J7060; J7512